=== PATIENT | female | born 1945 | race Caucasian/White ===

== ENCOUNTER → 2016-08-28 | Outpatient (CLI) | payer OTHER ==
[~2016-08-28] MED LIST: HYDR25TA4 PO; METO50TA7 PO; NAPR1TAB9 PO; OXYC1TAB3 PO; POTA20TA16 PO; PRED20TA PO; PRVC/20 PO
== END | disposition home or self-care (01) ==
LOC: C.CPL 15:11
PROVIDERS: ATTEND Orthopaedic Surgery Sports Medicine
DX: Z01.810 Encounter for preprocedural cardiovascular examination (principal)

== ENCOUNTER → 2016-09-20 | Outpatient (CLI) | payer OTHER ==
--- NOTE | 2016-09-20 15:17 | DIAGNOSTIC IMAGING REPORT ---
TWO VIEW CHEST CLINICAL HISTORY: Hemoptysis. FINDINGS: PA and lateral chest radiographs are compared to study dated 05/15/2014. Correlation is made with chest CT dated 12/08/2008. The examination is degraded by large body habitus and apical lordotic positioning on the frontal view The cardiomediastinal silhouette is unremarkable. There is mild atherosclerotic calcification of the thoracic aorta. No airspace consolidation or pleural effusion is seen. There is no pneumothorax. The skeletal structures are osteopenic. Degenerative change is noted in the thoracic spine. IMPRESSION: No acute cardiopulmonary abnormality. Electronically signed by: Saroj Arteaga M.D. 09/20/2016 3:16 PM Dictated Date/Time: 09/20/2016 3:14 PM
== END | disposition home or self-care (01) ==
LOC: C.RAD1850 15:01
PROVIDERS: ATTEND Internal Medicine
DX: R04.2 Hemoptysis (principal)

== ENCOUNTER → 2017-01-02 | Outpatient (CLI) | payer OTHER ==
[~2017-01-02] MED LIST changes: -OXYC1TAB3 PO
[2017-01-02 12:14] LABS: BASO % 0.8 %; BASO ABS # 0.04 K/uL (0-0.2); COMPLETE YES; EOS % 7.2 %; IG% 0.2 %; LYMPH % 33.3 %; LYMPH ABS # 1.58 K/uL (1.2-3.4); MEAN CELL VOLUME 85.3 fL (80-100); MEAN CORPUSCULAR HEMOGLOBIN 27.9 pg (25-34); MEAN CORPUSCULAR HGB CONC 32.8 g/dl (32-36); MONO % 8.8 %; NEUT % 49.7 %; PLATELET COUNT 255 K/uL (130-400); RED BLOOD COUNT 4.69 M/uL (4.2-5.4); WHITE BLOOD COUNT 4.75 K/uL (4.8-10.8)
[2017-01-02 12:19] LABS: URINE APPEARANCE CLEAR (CLEAR); URINE BILIRUBIN NEG (NEG); URINE COLOR YELLOW; URINE NITRITE NEG (NEG); URINE SPECIFIC GRAVITY 1.012 (1.000-1.030); UROBILINOGEN NEG (NEG); ZZUR CULT IF INDIC CLEAN CATCH NO
[2017-01-02 12:20] LABS: MANUAL MICROSCOPIC REQUIRED? NO; REVIEW REQ? NO
[2017-01-02 12:30] LABS: ALT/SGPT 18 U/L (12-78); AST/SGOT 12 U/L (15-37); BLOOD UREA NITROGEN 16 mg/dl (7-18); BUN/CREATININE RATIO 16.6 (10-20); CARBON DIOXIDE 29 mmol/L (21-32); CHLORIDE 106 mmol/L (98-107); CHOLESTEROL 151 mg/dl (0-200); CREATININE 0.96 mg/dl (0.60-1.20); GLUCOSE 95 mg/dl (70-99); POTASSIUM 3.5 mmol/L (3.5-5.1); SODIUM 144 mmol/L (136-145); TRIGLYCERIDES 164 mg/dl (0-150); VERY LOW DENSITY LIPOPROT CALC 33 mg/dl
[2017-01-02 12:38] LABS: ALB/GLOB RATIO 0.9 (0.9-2); ALKALINE PHOSPHATASE 81 U/L (45-117); CHOLESTEROL/HDL RATIO 2.8; HDL CHOLESTEROL 54 mg/dl; LDL CHOLESTEROL CALCULATED 64 mg/dl; THYROID STIMULATING HORMONE 0.947 uIu/ml (0.300-4.500)
== END | disposition home or self-care (01) ==
LOC: C.LABBFT 08:29
PROVIDERS: ATTEND Physician Assistant Medical
DX: E87.6 Hypokalemia (principal); E55.9 Vitamin D deficiency, unspecified; I10 Essential (primary) hypertension; E78.00 Pure hypercholesterolemia, unspecified

== ENCOUNTER 2017-04-03 07:48 | Emergency (ER) | payer OTHER ==
[~2017-04-03] VITALS: Ht 149.9 cm; Wt 88.2 kg
[~2017-04-03 07:48] MED LIST changes: -POTA20TA16 PO; -PRED20TA PO
[2017-04-03 07:50] VITALS: TEMP 36.3; Ht 149.9 cm; Wt 88.2 kg
[2017-04-03] MEDS ORDERED: POTA20TA16 PO ×2 (08:25→08:27)
--- NOTE | 2017-04-03 08:27 | EMERGENCY ROOM VISIT NOTE ---
History Report prepared by Adonay: Carla Coleman Under the Supervision of: Dr. Dom Augustine M.D. First contact with patient: 08:10 Chief Complaint: ALLERGIC REACTION Stated Complaint: EXCESSIVE SWELLING TO LIP History of Present Illness The patient is a 71 year old female who presents to the Emergency Room with complaints of persistent swelling her upper lip that began this morning. The patient states that she went to bed feeling fine last evening. She states that when she woke this morning she noticed upper lip swelling, but denies any tongue or throat swelling. The patient denies any change in medication, soaps, detergents, clothes, or food intake. She states that she did not take any of her medications this morning. The patient states that the last medication she took was her cholesterol medication last evening. She states that yesterday she had laser surgery on her right eye. The patient states that she had drops placed in her eye, but is unsure what the drops were. She denies any shortness of breath. Source of History: patient Onset: this morning Position: lip (upper) Quality: other (swelling) Timing: other (persistent) Review of Systems All systems have been listed, reviewed, and are negative other than those previously mentioned. Please see Additional Medical History Sheet. Past Medical & Surgical Medical Problems: (1) Bronchitis Nos (2) Hypertension (3) Painful Respiration (4) Pneumonia, Organism Nos Surgical Problems: (1) History of knee surgery Family History Diabetes mellitus FH: cancer FH: heart disease Hypertension Kidney disease Kidney stones Lung disease Social History Smoking Status: Never Smoker Alcohol Use: none Drug Use: none Marital Status: other Housing Status: lives alone Occupation Status: unemployed Current/Historical Medications Scheduled Hydrochlorothiazide (Hctz), 25 MG PO DAILY Metoprolol Succ (Toprol Xl) (Toprol-Xl), 50 MG PO QAM Potassium Ext Rel (Klor-Con), 10 MEQ PO DAILY Potassium Ext Rel (Klor-Con), 20 MEQ PO DAILY Pravastatin Sod (Pravastatin Sodium), 20 MG PO HS Prednisone (Prednisone), 20 MG PO BID Allergies Coded Allergies: Moxifloxacin (Verified Adverse Reaction, Intermediate, MENTAL CHANGES, ) Physical Exam Vital Signs Date Time Temp Pulse Resp B/P (MAP) Pulse Ox O2 Delivery O2 Flow Rate FiO2 04/03/17 12:53 66 17 135/80 94 04/03/17 10:22 68 19 169/72 94 Room Air 04/03/17 09:09 71 18 155/98 92 Room Air 04/03/17 08:19 67 04/03/17 07:50 36.3 72 18 177/115 92 Physical Exam GENERAL: Patient awake, alert, oriented x 3. Patient follows commands. Patient does not appear toxic. Patient is adequately hydrated and well- nourished. SKIN: No erythema, pallor, cyanosis or rash HEENT: Normal head, pupils equal, reactive to light and accommodation. Ears normal. Upper lip is markedly swollen, consistent with angioedema, uvula is minimally swollen, tongue is not swollen, no signs of erythema or pus in oropharynx. Neck: Without adenopathy, no neck vein distention. No meningeal findings. LUNGS: Clear to auscultation. No wheezes, no rales, no rhonchi. HEART: No murmurs. No gallops. No rubs ABDOMEN: Obese, soft, nontender. EXTREMITIES: No signs of trauma or infection. NEUROLOGIC: Cranial nerves II-XII within normal limits. No gross motor sensory function deficits. Medical Decision & Procedures Laboratory Results Test 04/03/17 08:07 Erythrocyte Sedimentation Rate 20 mm/hr (0-21) C-Reactive Protein 1.71 mg/dl (0-0.29) Laboratory results as stated above per my review. Medications Administered Medications (Trade) Dose Ordered Sig/Kirk Route Start Time Stop Time Status Last Admin Dose Admin Diphenhydramine HCl (Benadryl Cap) 50 mg NOW ONCE PO 04/03/17 09:00 04/03/17 09:01 DC 04/03/17 09:09 50 MG Prednisone (PredniSONE TAB) 40 mg NOW STAT PO 04/03/17 08:55 04/03/17 08:57 DC 04/03/17 09:09 40 MG ED Course 0811: Past medical records reviewed. The patient was evaluated in room A10. A complete history and physical examination was performed. 0855: Ordered Prednisone 40 mg PO. 0900: Ordered Benadryl Cap 50 mg PO. 1012: I reevaluated the patient and she is slightly better. She has a small polyp on the inside her buccal mucosa which is old. She still has some slight swelling of her uvula and swelling of her upper lip. 1215: I reevaluated the patient and her swelling has improved. I discussed all the exam findings with her and I discussed the treatment plan. She verbalized complete understanding and agreement. She is ready to go home. Medical Decision Nurses notes reviewed. Medical history sheet reviewed. Differential diagnosis includes but is not limited to: Angioedema, medication reaction, unknown allergen. The patient is here with angioedema of unknown cause. She does not appear to have infection. Sedimentation rate is not elevated. CRP is slightly elevated. C4 complement is pending. The patient does not likely have hereditary angioedema. The patient is not on an Romel inhibitor. There is a rare instance of angioedema from Pravachol. I do not intend on changing her medications at this time but I did place her on Benadryl and prednisone. The patient should follow-up with her family physician within the next 7 days. Medication Reconcilliation Current Medication List: was personally reviewed by me Blood Pressure Screening Patient's blood pressure: Elevated blood pressure Blood pressure disposition: Referred to PCP Impression Primary Impression: Angioedema Scribe Attestation The scribe's documentation has been prepared under my direction and personally reviewed by me in its entirety. I confirm that the note above accurately reflects all work, treatment, procedures, and medical decision making performed by me. Departure Information Dispostion Home / Self-Care Prescriptions Prednisone (Prednisone) 20 Mg Tab 20 MG PO BID for 5 Days, #9 TAB Prov: Dom Augustine M.D. 04/03/17 Referrals Domenic Nogueira M.D. (PCP) Forms HOME CARE DOCUMENTATION FORM, IMPORTANT VISIT INFORMATION Patient Instructions ED Angioedema, My [facility] Additional Instructions 25-50 mg of Benadryl every 6 hours as needed for swelling of your face. You may stop Benadryl if the swelling resolves. Prednisone 20 mg twice a day for 5 days. Continue this medication until the prescription has been completed. Follow-up with your family physician within the next 7 days. Return here sooner if you develop any shortness of breath or increased swelling.
[2017-04-03] MEDS ORDERED: PRED20TA PO (12:24)
[2017-04-03 12:53] VITALS: BP 135/80; PULSE 66; O2SAT 94
== END 2017-04-03 12:54 | disposition home or self-care (01) ==
LOC: C.EDB 07:50 → C.EDA 12:54
DX: T78.3XXA Angioneurotic edema, initial encounter (principal); X58.XXXA Exposure to other specified factors, initial encounter; I10 Essential (primary) hypertension; Z79.899 Other long term (current) drug therapy; Z98.890 Other specified postprocedural states; Z83.3 Family history of diabetes mellitus; Z80.9 Family history of malignant neoplasm, unspecified; Z82.49 Family history of ischemic heart disease and other diseases of the circulatory system; Z84.1 Family history of disorders of kidney and ureter

== ENCOUNTER → 2017-04-09 | Outpatient (CLI) | payer OTHER ==
[~2017-04-09] MED LIST changes: -NAPR1TAB9 PO; +POTA20TA16 PO; +PRED20TA PO
--- NOTE | 2017-04-09 13:50 | MAMMOGRAPHY REPORT ---
BILATERAL DIGITAL SCREENING MAMMOGRAM WITH CAD: 04/09/2017 CLINICAL HISTORY: Routine screening. TECHNIQUE: Current study was also evaluated with a Computer Aided Detection (CAD) system. Bilateral CC and MLO views were obtained. COMPARISON: Comparison is made to exam dated: 04/03/2016 mammogram - [facility]. BREAST COMPOSITION: There are scattered areas of fibroglandular density in both breasts. FINDINGS: No suspicious masses, calcifications, or areas of architectural distortion are noted in ei ther breast. There has been no significant interval change compared to prior exams. Bilateral benign appearing calcifications are not significantly changed. IMPRESSION: ACR BI-RADS CATEGORY 2: BENIGN There is no mammographic evidence of malignancy. A 1 year screening mammogram is recommended. The pa tient will receive written notification of the results. Approximately 10% of breast cancers are not detected with mammography. A negative mammographic report should not delay biopsy if a clinically suggestive mass is present. Renetta Guzman M.D. ah/:04/09/2017 11:22:31 Director Internal Communications: Ruth Ann JAIMES(Daniela)(M), [facility] letter sent: Normal 1/2 BI-RADS Code: ACR BI-RADS Category 2: Benign
== END | disposition home or self-care (01) ==
LOC: C.MAMM 10:41
PROVIDERS: ATTEND Internal Medicine
DX: Z12.31 Encounter for screening mammogram for malignant neoplasm of breast (principal)

== ENCOUNTER → 2017-04-14 | Outpatient (CLI) | payer OTHER ==
[~2017-04-14] MED LIST changes: -PRED20TA PO
[2017-04-14 12:43] LABS: COMPLETE YES; EOS % 0.1 %; HEMATOCRIT 41.3 % (37-47); IG% 0.5 %; LYMPH % 15.6 %; LYMPH ABS # 1.31 K/uL (1.2-3.4); MEAN CELL VOLUME 87.7 fL (80-100); MEAN CORPUSCULAR HEMOGLOBIN 28.2 pg (25-34); MEAN CORPUSCULAR HGB CONC 32.2 g/dl (32-36); MEAN PLATELET VOLUME 11.1 fL (7.4-10.4); MONO % 5.6 %; NEUT % 78.2 %; PLATELET COUNT 291 K/uL (130-400); RED BLOOD COUNT 4.71 M/uL (4.2-5.4); WHITE BLOOD COUNT 8.38 K/uL (4.8-10.8)
[2017-04-14 13:06] LABS: ALT/SGPT 20 U/L (12-78); BLOOD UREA NITROGEN 20 mg/dl (7-18); BUN/CREATININE RATIO 21.8 (10-20); CALCIUM 9.2 mg/dl (8.5-10.1); CARBON DIOXIDE 27 mmol/L (21-32); CHLORIDE 103 mmol/L (98-107); CREATININE 0.92 mg/dl (0.60-1.20); GLUCOSE 161 mg/dl (70-99); POTASSIUM 3.6 mmol/L (3.5-5.1); SODIUM 138 mmol/L (136-145)
[2017-04-14 13:17] LABS: ALB/GLOB RATIO 0.8 (0.9-2); ALKALINE PHOSPHATASE 66 U/L (45-117); AST/SGOT 12 U/L (15-37); THYROID STIMULATING HORMONE 0.209 uIu/ml (0.300-4.500)
[2017-04-14 14:16] LABS: LYME DISEASE AB IGG NEG (NEG)
[2017-04-14 14:19] LABS: LYME DISEASE AB IGM NEG (NEG)
== END | disposition home or self-care (01) ==
LOC: C.LABBFT 09:11
PROVIDERS: ATTEND Physician Assistant Medical
DX: A69.20 Lyme disease, unspecified (principal)

== ENCOUNTER → 2017-04-21 | Outpatient (CLI) | payer OTHER ==
[2017-04-21 12:38] LABS: THYROID STIMULATING HORMONE 0.817 uIu/ml (0.300-4.500)
== END | disposition home or self-care (01) ==
LOC: C.LABBFT 08:32
PROVIDERS: ATTEND Physician Assistant Medical
DX: R94.6 Abnormal results of thyroid function studies (principal)

== ENCOUNTER → 2017-08-21 | Outpatient (CLI) | payer OTHER ==
[2017-08-21 12:36] LABS: HEMOGLOBIN A1C 5.5 % (4.5-5.6)
[2017-08-21 12:51] LABS: BASO ABS # 0.05 K/uL (0-0.2); EOS % 5.3 %; EOS ABS # 0.27 K/uL (0-0.5); HEMATOCRIT 40.1 % (37-47); HEMOGLOBIN 13.3 g/dL (12.0-16.0); LYMPH % 36.1 %; LYMPH ABS # 1.84 K/uL (1.2-3.4); MEAN CELL VOLUME 87.4 fL (80-100); MEAN CORPUSCULAR HGB CONC 33.2 g/dl (32-36); MEAN PLATELET VOLUME 10.9 fL (7.4-10.4); MONO % 8.8 %; MONO ABS # 0.45 K/uL (0.11-0.59); NEUT % 48.8 %; NEUT ABS # 2.48 K/uL (1.4-6.5); PLATELET COUNT 280 K/uL (130-400); RED CELL DISTRIBUTION WIDTH CV 13.7 % (11.5-14.5); RED CELL DISTRIBUTION WIDTH SD 43.3 fL (36.4-46.3); WHITE BLOOD COUNT 5.09 K/uL (4.8-10.8)
[2017-08-21 14:07] LABS: ALBUMIN 3.3 gm/dl (3.4-5.0); ALT/SGPT 21 U/L (12-78); AST/SGOT 18 U/L (15-37); BLOOD UREA NITROGEN 14 mg/dl (7-18); CALCIUM 9.2 mg/dl (8.5-10.1); CARBON DIOXIDE 30 mmol/L (21-32); CREATININE 0.99 mg/dl (0.60-1.20); GLUCOSE 96 mg/dl (70-99); POTASSIUM 3.5 mmol/L (3.5-5.1); SODIUM 139 mmol/L (136-145)
[2017-08-21 14:10] LABS: ALKALINE PHOSPHATASE 76 U/L (45-117); CHOLESTEROL 210 mg/dl (0-200); LDL CHOLESTEROL CALCULATED 120 mg/dl; TOTAL PROTEIN 7.3 gm/dl (6.4-8.2)
== END | disposition home or self-care (01) ==
LOC: C.LABBFT 08:22
PROVIDERS: ATTEND Internal Medicine
DX: E55.9 Vitamin D deficiency, unspecified (principal); R73.9 Hyperglycemia, unspecified

== ENCOUNTER → 2017-11-18 | Outpatient (CLI) | payer OTHER ==
[~2017-11-18] MED LIST changes: -METO50TA7 PO; +METO50TA8 PO; +POTA-639 PO; -POTA20TA16 PO
== END | disposition home or self-care (01) ==
LOC: C.MAMM 09:17
PROVIDERS: ATTEND Internal Medicine
DX: E55.9 Vitamin D deficiency, unspecified (principal); Z78.0 Asymptomatic menopausal state

== ENCOUNTER → 2017-11-24 | Outpatient (CLI) | payer OTHER ==
[2017-11-24 13:02] LABS: BLOOD UREA NITROGEN 17 mg/dl (7-18); CALCIUM 9.4 mg/dl (8.5-10.1); CARBON DIOXIDE 30 mmol/L (21-32); CREATININE 1.07 mg/dl (0.60-1.20); GLUCOSE 148 mg/dl (70-99); POTASSIUM 3.5 mmol/L (3.5-5.1); SODIUM 136 mmol/L (136-145)
== END | disposition home or self-care (01) ==
LOC: C.LABBFT 09:10
PROVIDERS: ATTEND Internal Medicine
DX: I10 Essential (primary) hypertension (principal); E55.9 Vitamin D deficiency, unspecified

== ENCOUNTER → 2017-11-28 | Outpatient (CLI) | payer OTHER ==
[2017-11-28 12:19] LABS: HEMOGLOBIN A1C 5.6 % (4.5-5.6)
== END | disposition home or self-care (01) ==
LOC: C.LABBFT 08:38
PROVIDERS: ATTEND Internal Medicine
DX: R73.09 Other abnormal glucose (principal)

== ENCOUNTER 2019-10-07 18:43 | Inpatient (IN) ==
[2019-10-07 20:09] LABS: Partial Thromboplastin Time 25.9 Seconds (21.0-31.0); Prothrombin Time 10.6 Seconds (9.0-12.0)
[2019-10-07 20:10] LABS: Basophils # (auto) 0.02 K/uL (0-0.2); Basophils % (auto) 0.4 %; Eosinophils # (auto) 0.25 K/uL (0-0.5); Eosinophils % (auto) 4.7 %; Hematocrit (blood only) 39.7 % (37-47); Hemoglobin 13.3 g/dL (12.0-16.0); Lymphocytes # (auto) 1.38 K/uL (1.2-3.4); Lymphocytes % (auto) 25.7 %; Mean Corpuscular Hemoglobin 29.6 pg (25-34); Mean Corpuscular Hgb Conc 33.5 g/dL (32-36); Mean Corpuscular Volume 88.4 fL (80-100); Mean Platelet Volume 10.7 fL (7.4-10.4); Monocytes # (auto) 0.61 K/uL (0.11-0.59); Monocytes % (auto) 11.4 %; Neutrophils # (auto) 3.11 K/uL (1.4-6.5); Neutrophils % (auto) 57.8 %; Platelet Count 263 K/uL (130-400); RDW Coefficient of Variation 14.3 % (11.5-14.5); RDW Standard Deviation 46.3 fL (36.4-46.3); Red Blood Count 4.49 M/uL (4.2-5.4); White Blood Count 5.37 K/uL (4.8-10.8)
[2019-10-07 20:12] LABS: Alanine Aminotransferase 19 U/L (12-78); Albumin Level 3.3 gm/dl (3.4-5.0); Aspartate Aminotransferase 14 U/L (15-37); BUN Creatinine Ratio 20.8 (10-20); Blood Urea Nitrogen 20 mg/dl (7-18); Calcium 9.2 mg/dl (8.5-10.1); Carbon Dioxide 30 mmol/L (21-32); Chloride 104 mmol/L (98-107); Creatinine Clr Calc Pharmacy 48.4 ml/min; Est GFR (African American) 64.9; Glucose 120 mg/dl (70-99); Magnesium 1.9 mg/dl (1.8-2.4); Potassium 3.3 mmol/L (3.5-5.1); Sodium 139 mmol/L (136-145)
[2019-10-07 20:17] LABS: Albumin Globulin Ratio 0.8 (0.9-2); Alkaline Phosphatase 75 U/L (45-117); Bilirubin,Total 0.5 mg/dl (0.2-1); Globulin 4.2 gm/dl (2.5-4.0); Total Protein 7.5 gm/dl (6.4-8.2); Troponin I < 0.015 ng/ml (0-0.045)
[2019-10-07] MEDS ORDERED: OPTIRAY 320 125ml IV PRN (20:18)
--- NOTE | 2019-10-07 20:22 | CT Scan Report ---
CT head/brain wo con CLINICAL HISTORY: 74 years-old Female with Stroke evaluation . Acute headache with light sensitivity TECHNIQUE: Multiple axial CT images of the head were obtained without contrast. A dose lowering tech nique was utilized adhering to the principles of ALARA. CT DOSE: 537.48 mGy.cm COMPARISON: None. FINDINGS: No acute intracranial hemorrhage, midline shift, intracranial mass, hydrocephalus, territorial ischem ia or abnormal extra-axial collection. Minimal age-related involutional changes. The calvarium is intact. Prior bilateral lens replacement. The paranasal sinuses, mastoid air cells, and middle ear cavities are clear. IMPRESSION: No acute intracranial abnormality. ACT 112: Negative or not required by law. The above report was generated using voice recognition software. It may contain grammatical, syntax o r spelling errors. Results electronically sent 10/07/2019 8:21 PM to: Baldemar Brooks MD Electronically signed by: Mina Vazquez M.D. 10/07/2019 8:21 PM
[2019-10-07 20:33] LABS: Appearance Urine Cloudy (Clear); Bacteria Urine Automated Negative (Negative); Bilirubin Urine Negative (Negative); Blood Urine Negative (Negative); Cast Urine Automated 0 /lpf (0-5); Color Urine Yellow; Epithelial Cell Urine Auto 20-30 /lpf (0-5); Glucose Urine UA Negative (Negative); Ketones Urine Negative (Negative); Leukocyte Esterase Urine Trace (Negative); Nitrite Urine Negative (Negative); Protein Urine Negative (Negative); RBC Urine Automated 0-4 /hpf (0-4); Specific Gravity Urine 1.007 (1.000-1.030); Urobilinogen Urine Negative (Negative)
--- NOTE | 2019-10-07 20:43 | CT Scan Report ---
CT angio neck with con, CT angio head w con CLINICAL HISTORY: 74 years-old Female with slurred speech, dysphagia. Acute strokelike symptoms wi th slurred speech COMPARISON STUDY: Head CT of same day TECHNIQUE: Following the IV administration of 119 mL of Optiray 320, CT angiogram of the head and nec k was performed from the aortic arch to the skull apex. Images are reviewed in the axial, sagittal, a nd coronal planes. 3-D MIPS images are created and assessed. IV contrast was administered without com plication. All measurements were calculated based on NASCET criteria. A dose lowering technique was utilized adhering to the principles of ALARA. CT DOSE: 523.46 mGy.cm FINDINGS: The imaged opacified pulmonary arterial tree is unremarkable. Moderate mixed plaque of the thoracic a ortic arch without aneurysm identified. Mild less than 50% luminal narrowing at the origin of the lef t subclavian artery. Unremarkable right subclavian artery. The bilateral common carotid arteries are patent. Moderate mixed plaque of the bilateral carotid bulbs results in less than 50% luminal narrowi ng bilaterally. There is approximately 50% luminal narrowing involving the proximal left external car otid artery. There is a 3 mm ovoid structure suggestive of aneurysmal dilation involving a small bran ch of the left external carotid adjacent to the bulb on image 203 of series 2. Medial course of the b ilateral internal carotid arteries which are patent and otherwise unremarkable. The bilateral middle cerebral arteries are patent demonstrating multifocal areas of mild luminal narr owing. Anterior vertebral arteries are patent and unremarkable. Codominant vertebral arteries. The le ft vertebral artery originates from the aortic arch. Diminutive basilar artery is patent. origi n of the left posterior cerebral artery. The bilateral posterior cerebral arteries appear patent. Cer ebral venous sinuses are also patent. There is no aneurysm, dissection, high-grade stenosis or proxim al branch occlusion identified. Mosaic attenuation of the lung apices suggests air-trapping. No pneumothorax. No abnormal intracrania l enhancement. Partially imaged mildly enlarged prevascular/AP window lymph nodes with prominent pret reyna lymph nodes. Mild enlargement of the adenoid tonsils. Degenerative changes of the spine. IMPRESSION: 1. 50% luminal narrowing involves the origin of the left external carotid artery. 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 2. Moderate mixed plaque of the bilateral carotid bulbs results in less than 50% luminal narrowing of the bilateral internal carotid arteries. 3. No dissection, high-grade stenosis or proximal branch occlusion. 4. Partially imaged mild adenopathy of the upper mediastinum, nonspecific. ACT 112: Negative or not required by law. The above report was generated using voice recognition software. It may contain grammatical, syntax o r spelling errors. Results electronically sent 10/07/2019 8:42 PM to: Baldemar Brooks MD Electronically signed by: Mina Vazquez M.D. 10/07/2019 8:42 PM
[2019-10-07] MEDS ORDERED: ASPIRIN CHEW 324 MG PO STA (21:02)
--- NOTE | 2019-10-07 21:46 | CT Scan Report ---
CT chest wo con CT DOSE: 1127.65 mGy.cm CLINICAL HISTORY: 74 years-old Female with slurred speech, hospitalist requested. Acute shortness of breath TECHNIQUE: Multiaxial CT images of the chest were performed without contrast. A dose lowering techni que was utilized adhering to the principles of ALARA. COMPARISON: Chest CT 12/08/2008 FINDINGS: Unremarkable thyroid. There are a few prominent paratracheal, AP window and subcarinal lymp h nodes measuring up to 9 mm, likely on a physiologic basis. Heart is upper limits of normal in size. Mild aortic annular calcifications. Calcified plaque of the thoracic aorta. No pneumothorax or pleur al effusion. Mosaic attenuation of the bilateral lungs is noted with intermixed groundglass densities suggestive of atelectasis. 4 mm nodular density focus abuts the superior aspect of the right major f issure on image 86 of series 4, unchanged suggestive of a benign lymph node. No overt pulmonary edema or airspace consolidation typical for pneumonia. 4 mm groundglass opacity of the right middle lobe. 3 mm subpleural nodule of the lateral segment right middle lobe is unchanged and likely benign. 4 mm subpleural nodular opacity of the apical posterior segment left upper lobe on image 59 series 4 is un changed and also likely benign. The central airways appear patent. No acute process of the imaged upper abdomen. Soft tissues are unremarkable. Bones appear intact. Deg enerative changes of the shoulders and spine. IMPRESSION: 1. No pleural effusion or airspace consolidation typical for pneumonia. 2. Multilobar bilateral distribution of mosaic attenuation with groundglass densities suggests air-tr apping with atelectasis. 3. Mildly prominent mediastinal lymph nodes, likely reactive. ACT 112: Negative or not required by law. Results electronically sent 10/07/2019 9:45 PM to: Baldemar Brooks MD Electronically signed by: Mina Vazquez M.D. 10/07/2019 9:45 PM
--- NOTE | 2019-10-07 22:11 | Emergency Department Note ---
Entered by Theresa Coburn acting as a scribe for History of Present Illness General Chief complaint: TIA Symptoms Stated complaint: SPEECH ISN'T RIGHT, PAIN FROM NECK TO HEAD Time Seen by Provider: 10/07/19 18:52 Source: patient History of Present Illness Location: mouth Pain Consistency: + constant Maximum Pain Intensity: 5 Quality: + other (TIA symptoms) Exacerbated By: + movement (turning to the right (neck to head pain)) Associated symptoms: + other (Positive inability to chew on left side (constant), difficulty swallowing, pain from neck to head, slurred speech. Negative vision changes, hearing changes, numbness or weakness in her extremities, recent travel. ) The patient is a 74 year old white female w/ PMHx of Afib, hypercholesterolemia, sciatica, and HTN who presents to the ED w/ CC of TIA symptoms beginning yesterday. She reports when she chews her food, she cannot chew on her left side. She states this is constant. The patient reports she has pain going from her neck to her head which is worsened when she turns to the right. She states her speech is slurred and she had difficulty swallowing. Pt denies any vision changes, hearing changes, numbness or weakness in her extremities, recent travel. Home Medications Home Medications Medication Instructions Recorded Confirmed Type Eliquis 5 mg PO BID 11/25/18 10/07/19 History metoprolol succinate 50 mg 50 mg PO QAM #30 tab 03/16/19 10/07/19 Rx tablet,extended release 24 hr pravastatin 20 mg tablet 20 mg PO HS #90 tab 04/13/19 10/07/19 Rx cholecalciferol (vitamin D3) 25 2,000 units PO QDL cap 04/20/19 10/07/19 History mcg (1,000 unit) capsule prednisone 20 mg tablet 20 mg PO DAILY PRN #20 tab 05/19/19 10/07/19 Rx potassium chloride 10 mEq 30 meq PO QAM #90 tab 07/08/19 10/07/19 Rx tablet,extended release(part/cryst) hydrochlorothiazide 25 mg tablet 25 mg PO DAILY #90 tab 09/15/19 10/07/19 Rx cetirizine 5 mg PO DAILY 10/07/19 10/07/19 History Allergies Allergy/AdvReac Type Severity Reaction Status Date / Time moxifloxacin AdvReac Intermediate Confusion Verified 10/07/19 20:38 irbesartan [From Avapro] AdvReac Unknown Verified 10/07/19 20:37 Past Med/Surg History Medical History Atrial fibrillation Hyperlipidemia Hypertension Kidney stones Morbid obesity Spinal stenosis Surgical History History of arthroscopy RIGHT KNEE History of cataract surgery BILATERAL History of colonoscopy Family History Brother Family hx of colon cancer Mother Family history of diabetes mellitus Social History Preferred Language: Trinidadian Communication Ability: Effective 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 and A total of 10 systems reviewed and were otherwise negative Physical Exam Vital Signs Vital Signs - 24 hr 10/07/19 18:48 10/07/19 21:16 Temperature 36.5 C Temperature Source Oral Pulse Rate 82 Pulse Rate [Left Finger] 67 Respiratory Rate 20 18 Blood Pressure 168/91 H Blood Pressure [Right Arm] 197/93 H Blood Pressure Mean 116 Blood Pressure Mean [Right Arm] 127 Blood Pressure Position Sitting Pulse Oximetry 95 94 Oxygen Delivery Method Room Air Sepsis Recent Fever Within 48 Hours No Sepsis New/Unexplained Change in Mental Status No Sepsis Action Taken by Nursing No Action Required GENERAL: Well appearing, well nourished, NAD, non-toxic. EYE EXAM: Normal conjunctiva. PERRL, no anisocoria and EOM's grossly intact w/o pain. OROPHARYNX: Moist mucous membranes. Edentulous. NECK: Supple, no nuchal rigidity, no adenopathy, non-tender. No signs of meningismus. LUNGS: Clear to auscultation. Normal chest wall mechanics. HEART: Irregularly irregular, no MRG. ABDOMEN: Abdomen soft, non-tender, normo-active bowel sounds, no masses, no rebound or guarding. BACK: No CVA TTP. SKIN: No rashes and no bruising. UPPER EXTREMITIES: Upper extremities are grossly normal. LOWER EXTREMITIES: No pitting edema. No calf pain. NEURO EXAM: A&O x3, cranial nerves II-XII grossly intact, with exception of slurred speech. Dysphagia. Normal speech, 5/5 strength throughout, no sensory deficits, good finger to nose, no pronator drift, moves all 4 extremities on command w/o issue. Course Course 185: Past medical records reviewed. The patient was evaluated in room C3. A complete history and physical exam was performed. 2149: Discussed the patient's case with Dr. Roe, [facility] Hospitalist. The patient will be evaluated for further management. CT chest without contrast was ordered per the hospitalist. Administered Medications Ioversol (Optiray 320 125ml) 119 ml IV ONCE PRN PRN Reason: Interaction Checking Stop: 10/11/19 20:17 Last Admin: 10/07/19 20:20 Dose: 119 ml Documented by: [id number] Discontinued Medications Aspirin (Aspirin) 324 mg PO NOW STA Stop: 10/07/19 21:03 Last Admin: 10/07/19 21: Dose: 324 mg Documented by: [id number] Medical Decision Making Differential Diagnosis Differential diagnosis: Etiologies such as metabolic, infection, hypo/hyperglycemia, electrolyte abnormalities, cardiac sources, intracerebral event, toxicologic, neurologic, as well as others were entertained. Medical Records Attestation: I reviewed the patient's medical records. Home Medications Current Medication List: was personally reviewed by me Laboratory Data Attestation: I reviewed the patient's lab results. Result diagrams: 10/07/19 19:45 10/07/19 19:45 Lab Results 10/07/19 10/07/19 10/07/19 Range/Units 19:28 19:45 19:45 WBC 5.37 (4.8-10.8) K/uL RBC 4.49 (4.2-5.4) M/uL Hgb 13.3 (12.0-16.0) g/dL Hct 39.7 (37-47) % MCV 88.4 (80-100) fL MCH 29.6 (25-34) pg MCHC 33.5 (32-36) g/dL RDW Std Deviation 46.3 (36.4-46.3) fL RDW Coeff of Juanjo 14.3 (11.5-14.5) % Plt Count 263 (130-400) K/uL MPV 10.7 H (7.4-10.4) fL Immature Gran % (Auto) 0.0 % Neut % (Auto) 57.8 % Lymph % (Auto) 25.7 % Hutch[place] % (Auto) 11.4 % Eos % (Auto) 4.7 % Baso % (Auto) 0.4 % Immature Gran # (Auto) 0.00 (0.00-0.02) K/uL Neut # (Auto) 3.11 (1.4-6.5) K/uL Lymph # (Auto) 1.38 (1.2-3.4) K/uL Hutchinson # (Auto) 0.61 H (0.11-0.59) K/uL Eos # (Auto) 0.25 (0-0.5) K/uL Baso # (Auto) 0.02 (0-0.2) K/uL PT 10.6 (9.0-12.0) Seconds INR 1.0 (0.9-1.1) APTT 25.9 (21.0-31.0) Seconds PTT Ratio 1.0 Sodium (136-145) mmol/L Potassium (3.5-5.1) mmol/L Chloride (98-107) mmol/L Carbon Dioxide (21-32) mmol/L Anion Gap (3-11) BUN (7-18) mg/dl Creatinine (0.6-1.2) mg/dl Est Cr Clr Drug Dosing ml/min Est GFR ( Amer) Est GFR (Non-Af Amer) BUN/Creatinine Ratio (10-20) Glucose (70-99) mg/dl POC Glucose 120 H (70-99) mg/dl Calcium (8.5-10.1) mg/dl Magnesium (1.8-2.4) mg/dl Total Bilirubin (0.2-1) mg/dl AST (15-37) U/L ALT (12-78) U/L Alkaline Phosphatase (45-117) U/L Troponin I (0-0.045) ng/ml Total Protein (6.4-8.2) gm/dl Albumin (3.4-5.0) gm/dl Globulin (2.5-4.0) gm/dl Albumin/Globulin Ratio (0.9-2) Urine Color Urine Appearance (Clear) Urine pH (4.5-7.5) Ur Specific [place] (1.000-1.030) Urine Protein (Negative) Urine Glucose (UA) (Negative) Urine Ketones (Negative) Urine Blood (Negative) Urine Nitrite (Negative) Urine Bilirubin (Negative) Urine Urobilinogen (Negative) Ur Leukocyte Esterase (Negative) Urine WBC (Auto) (0-5) /hpf Urine RBC (Auto) (0-4) /hpf U Hyaline Cast (Auto) (0-5) /lpf U Epithel Cells (Auto) (0-5) /lpf Urine Bacteria (Auto) (Negative) 10/07/19 10/07/19 Range/Units 19:45 20:05 WBC (4.8-10.8) K/uL RBC (4.2-5.4) M/uL Hgb (12.0-16.0) g/dL Hct (37-47) % MCV (80-100) fL MCH (25-34) pg MCHC (32-36) g/dL RDW Std Deviation (36.4-46.3) fL RDW Coeff of Juanjo (11.5-14.5) % Plt Count (130-400) K/uL MPV (7.4-10.4) fL Immature Gran % (Auto) % Neut % (Auto) % Lymph % (Auto) % Hutchinson % (Auto) % Eos % (Auto) % Baso % (Auto) % Immature Gran # (Auto) (0.00-0.02) K/uL Neut # (Auto) (1.4-6.5) K/uL Lymph # (Auto) (1.2-3.4) K/uL Hutchinson # (Auto) (0.11-0.59) K/uL Eos # (Auto) (0-0.5) K/uL Baso # (Auto) (0-0.2) K/uL PT (9.0-12.0) Seconds INR (0.9-1.1) APTT (21.0-31.0) Seconds PTT Ratio Sodium 139 (136-145) mmol/L Potassium 3.3 L (3.5-5.1) mmol/L Chloride 104 (98-107) mmol/L Carbon Dioxide 30 (21-32) mmol/L Anion Gap 5.0 (3-11) BUN 20 H (7-18) mg/dl Creatinine 0.98 (0.6-1.2) mg/dl Est Cr Clr Drug Dosing 48.4 ml/min Est GFR ( Amer) 64.9 Est GFR (Non-Af Amer) 56.0 BUN/Creatinine Ratio 20.8 H (10-20) Glucose 120 H (70-99) mg/dl POC Glucose (70-99) mg/dl Calcium 9.2 (8.5-10.1) mg/dl Magnesium 1.9 (1.8-2.4) mg/dl Total Bilirubin 0.5 (0.2-1) mg/dl AST 14 L (15-37) U/L ALT 19 (12-78) U/L Alkaline Phosphatase 75 (45-117) U/L Troponin I < 0.015 (0-0.045) ng/ml Total Protein 7.5 (6.4-8.2) gm/dl Albumin 3.3 L (3.4-5.0) gm/dl Globulin 4.2 H (2.5-4.0) gm/dl Albumin/Globulin Ratio 0.8 L (0.9-2) Urine Color Yellow Urine Appearance Cloudy A (Clear) Urine pH 6.0 (4.5-7.5) Ur Specific [place] 1.007 (1.000-1.030) Urine Protein Negative (Negative) Urine Glucose (UA) Negative (Negative) Urine Ketones Negative (Negative) Urine Blood Negative (Negative) Urine Nitrite Negative (Negative) Urine Bilirubin Negative (Negative) Urine Urobilinogen Negative (Negative) Ur Leukocyte Esterase Trace H (Negative) Urine WBC (Auto) 5-10 H (0-5) /hpf Urine RBC (Auto) 0-4 (0-4) /hpf U Hyaline Cast (Auto) 0 (0-5) /lpf U Epithel Cells (Auto) 20-30 H (0-5) /lpf Urine Bacteria (Auto) Negative (Negative) Imaging Data Radiologist's Impression: Radiology results as stated below per my review and the radiologist's interpretation: CT angio neck with con, CT angio head w con CLINICAL HISTORY: 74 years-old Female with slurred speech, dysphagia. Acute strokelike symptoms with slurred speech COMPARISON STUDY: Head CT of same day TECHNIQUE: Following the IV administration of 119 mL of Optiray 320, CT angiogram of the head and neck was performed from the aortic arch to the skull apex. Images are reviewed in the axial, sagittal, and coronal planes. 3-D MIPS images are created and assessed. IV contrast was administered without complication. All measurements were calculated based on NASCET criteria. A dose lowering technique was utilized adhering to the principles of ALARA. CT DOSE: 523.46 mGy.cm FINDINGS: The imaged opacified pulmonary arterial tree is unremarkable. Moderate mixed plaque of the thoracic aortic arch without aneurysm identified. Mild less than 50% luminal narrowing at the origin of the left subclavian artery. Unremarkable right subclavian artery. The bilateral common carotid arteries are patent. Moderate mixed plaque of the bilateral carotid bulbs results in less than 50% luminal narrowing bilaterally. There is approximately 50% luminal narrowing involving the proximal left external carotid artery. There is a 3 mm ovoid structure suggestive of aneurysmal dilation involving a small branch of the left external carotid adjacent to the bulb on image 203 of series 2. Medial course of the bilateral internal carotid arteries which are patent and otherwise unremarkable. The bilateral middle cerebral arteries are patent demonstrating multifocal areas of mild luminal narrowing. Anterior vertebral arteries are patent and unremarkable. Codominant vertebral arteries. The left vertebral artery originates from the aortic arch. Diminutive basilar artery is patent. origin of the left posterior cerebral artery. The bilateral posterior cerebral arteries appear patent. Cerebral venous sinuses are also patent. There is no aneurysm, dissection, high-grade stenosis or proximal branch occlusion identified. Mosaic attenuation of the lung apices suggests air-trapping. No pneumothorax. No abnormal intracranial enhancement. Partially imaged mildly enlarged prevascular/AP window lymph nodes with prominent pretracheal lymph nodes. Mild enlargement of the adenoid tonsils. Degenerative changes of the spine. IMPRESSION: 1. 50% luminal narrowing involves the origin of the left external carotid artery. 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 2. Moderate mixed plaque of the bilateral carotid bulbs results in less than 50% luminal narrowing of the bilateral internal carotid arteries. 3. No dissection, high-grade stenosis or proximal branch occlusion. 4. Partially imaged mild adenopathy of the upper mediastinum, nonspecific. ACT 112: Negative or not required by law. The above report was generated using voice recognition software. It may contain grammatical, syntax or spelling errors. Results electronically sent 10/07/2019 8:42 PM to: Baldemar Brooks MD Electronically signed by: Mina Vazquez M.D. 10/07/2019 8:[address] angio neck with con, CT angio head w con CLINICAL HISTORY: 74 years-old Female with slurred speech, dysphagia. Acute strokelike symptoms with slurred speech COMPARISON STUDY: Head CT of same day TECHNIQUE: Following the IV administration of 119 mL of Optiray 320, CT angiogram of the head and neck was performed from the aortic arch to the skull apex. Images are reviewed in the axial, sagittal, and coronal planes. 3-D MIPS images are created and assessed. IV contrast was administered without complication. All measurements were calculated based on NASCET criteria. A dose lowering technique was utilized adhering to the principles of ALARA. CT DOSE: 523.46 mGy.cm FINDINGS: The imaged opacified pulmonary arterial tree is unremarkable. Moderate mixed plaque of the thoracic aortic arch without aneurysm identified. Mild less than 50% luminal narrowing at the origin of the left subclavian artery. Unremarkable right subclavian artery. The bilateral common carotid arteries are patent. Mo derate mixed plaque of the bilateral carotid bulbs results in less than 50% luminal narrowing bilaterally. There is approximately 50% luminal narrowing involving the proximal left external carotid artery. There is a 3 mm ovoid structure suggestive of aneurysmal dilation involving a small branch of the left external carotid adjacent to the bulb on image 203 of series 2. Medial course of the bilateral internal carotid arteries which are patent and otherwise unremarkable. The bilateral middle cerebral arteries are patent demonstrating multifocal areas of mild luminal narrowing. Anterior vertebral arteries are patent and unremarkable. Codominant vertebral arteries. The left vertebral artery kofi ginates from the aortic arch. Diminutive basilar artery is patent. origin of the left posterior cerebral artery. The bilateral posterior cerebral arteries appear patent. Cerebral venous sinuses are also patent. There is no aneurysm, dissection, high-grade stenosis or proximal branch occlusion identified. Mosaic attenuation of the lung apices suggests air-trapping. No pneumothorax. No abnormal intracranial enhancement. Partially imaged mildly enlarged prevascular/AP window lymph nodes with prominent pretracheal lymph nodes. Mild enlargement of the adenoid tonsils. Degenerative changes of the spine. IMPRESSION: 1. 50% luminal narrowing involves the origin of the left external carotid a rtery. 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 2. Moderate mixed plaque of the bilateral carotid bulbs results in less than 50% luminal narrowing of the bilateral internal carotid arteries. 3. No dissection, high-grade stenosis or proximal branch occlusion. 4. Partially imaged mild adenopathy of the upper mediastinum, nonspecific. ACT 112: Negative or not required by law. The above report was generated using voice recognition software. It may contain grammatical, syntax or spelling errors. Results electronically sent 10/07/2019 8:42 PM to: Baldemar Brooks MD Electronically signed by: Mina Vazquez M.D. 10/07/2019 8:[address] head/brain wo con CLINICAL HISTORY: 74 years-old Female with Stroke evaluation . Acute headache with light sensitivity TECHNIQUE: Multiple axial CT images of the head were obtained without contrast. A dose lowering technique was utilized adhering to the principles of ALARA. CT DOSE: 537.48 mGy.cm COMPARISON: None. FINDINGS: No acute intracranial hemorrhage, midline shift, intracranial mass, hydrocephalus, territorial ischemia or abnormal extra-axial collection. Minimal age-related involutional changes. The calvarium is intact. Prior bilateral lens replacement. The paranasal sinuses, mastoid air cells, and middle ear cavities are clear. IMPRESSION: No acute intracranial abnormality. ACT 112: Negative or not required by law. The above report was generated using voice recognition software. It may contain grammatical, syntax or spelling errors. Results electronically sent 10/07/2019 8:21 PM to: Baldemar Brooks MD Electronically signed by: Mina Vazquez M.D. 10/07/2019 8:[address] chest wo con CT DOSE: 1127.65 mGy.cm CLINICAL HISTORY: 74 years-old Female with slurred speech, hospitalist reque sted. Acute shortness of breath TECHNIQUE: Multiaxial CT images of the chest were performed without contrast. A dose lowering technique was utilized adhering to the principles of ALARA. COMPARISON: Chest CT 12/08/2008 FINDINGS: Unremarkable thyroid. There are a few prominent paratracheal, AP win morgan and subcarinal lymph nodes measuring up to 9 mm, likely on a physiologic basis. Heart is upper limits of normal in size. Mild aortic annular calcifications. Calcified plaque of the thoracic aorta. No pneumothorax or pleural effusion. Mosaic attenuation of the bilateral lungs is noted with interm ixed groundglass densities suggestive of atelectasis. 4 mm nodular density focus abuts the superior aspect of the right major fissure on image 86 of series 4, unchanged suggestive of a benign lymph node. No overt pulmonary edema or airspace consolidation typical for pneumonia. 4 mm groundglass opacity of the right middle lobe. 3 mm subpleural nodule of the lateral segment right middle lobe is unchanged and likely benign. 4 mm subpleural nodular opacity of the apical posterior segment left upper lobe on image 59 series 4 is unchanged and also likely benign. The central airways appear patent. No acute process of the imaged upper abdomen. Soft tissues are unremarkable. Bones appear intact. Degenerative changes of the shoulders and spine. IMPRESSION: 1. No pleural effusion or airspace consolidation typical for pneumonia. 2. Multilobar bilateral distribution of mosaic attenuation with groundglass densities suggests air-trapping with atelectasis. 3. Mildly prominent mediastinal lymph nodes, likely reactive. ACT 112: Negative or not required by law. Results electronically sent 10/07/2019 9:45 PM to: Baldemar Brooks MD Electronically signed by: Mian Vazquez M.D. 10/07/2019 9:45 PM Dictated: [id number]/[id number] Transcribed: [id number]/[id number] ECG Data Attestation: I personally reviewed and interpreted this ECG as follows: Indication: + other (TIA symptoms) Rate (beats per minute): 63 Rhythm: + sinus rhythm ECG Intervals/blocks: + First degree AV block and + Normal QRS ECG [place]mler: + Normal ECG ST segments: + T-wave inversions (V2 and lead III) ECG Findings: + Other (no ST changes) Comparison ECG Date: from (12/01/18) Change: no significant change Blood Pressure Blood Pressure Findings: Elevated blood pressure MDM Narrative The patient is a 74 year old white female w/ PMHx of Afib, hypercholesterolemia, sciatica, and HTN who presents to the ED w/ CC of TIA symptoms beginning yesterday. Cardiac monitoring: An order was placed for continuous cardiac monitoring. The monitor shows a rate of 64 with sinus rhythm. Patient was seen and evaluated the bedside. The patient states that she did develop symptoms on Friday. The patient noted some slurred speech and some difficulty with swallowing. The patient does not have any prior history of my asthenia gravis. No prior history of stroke or TIA. The patient denies any alcohol or tobacco use. The patient otherwise has a nonfocal neurologic exam but does have the slurred speech. Patient is tolerating her secretions at the bedside. Patient does not have any sensory deficits good [id number]. Patient denies any recent falls or trauma. The patient blood work shows a normal white count H&H and platelet count. The patient's kidney function is unremarkable. The patient may have slight prerenal azotemia. The patient's potassium is somewhat low which may be repleted. Patient's urinalysis does not show any evidence of obvious infection. No urinary symptoms with negative bacteria and nitrites. Patient CT of the head was negative. Patient CT angios of the head and neck do's shows some narrowing of the left external carotid and a small saccular aneurysm of the small branch of the proximal left external carotid artery. No other obvious dissection high-grade stenosis or proximal branch occlusion. I did speak the on-call hospitalist who requested a CT of the chest ordered. This was ordered and completed. Patient does not have any findings typical of pneumonia most likely atelectasis and does likely have some reactive mediastinal lymph nodes. Patient did receive a full dose aspirin. Patient currently is not in A. fib. EKG does not show any acute change. Patient was admitted to the medicine service. Impression & Plan TIA (transient ischemic attack), Slurring of speech, Hypokalemia Discharge Plan Visit Data Chief Complaint: TIA Symptoms Stated Complaint: SPEECH ISN'T RIGHT, PAIN FROM NECK TO HEAD ED Provider: Baldemar Brooks Discharge Problem: TIA (transient ischemic attack), Slurring of speech, Hypokalemia Patient Disposition: Being Evaluated by Hospitalist Forms Stand Alone Forms: [facility] [employer] Prescriptions Prescriptions: No Action metoprolol succinate 50 mg tablet extended release 24 hr 50 mg PO QAM Qty: 30 RF: 11 pravastatin 20 mg tablet 20 mg PO HS Qty: 90 RF: 3 cholecalciferol (vitamin D3) [Vitamin D3] 1,000 unit capsule 2,000 units PO QDL RF: 0 potassium chloride [Klor-Con M10] 10 mEq tablet,ER particles/crystals 30 meq PO QAM Qty: 90 RF: 3 hydrochlorothiazide 25 mg tablet 25 mg PO DAILY Qty: 90 RF: 3 prednisone 20 mg tablet 20 mg PO DAILY PRN (Reason: facial swelling) Qty: 20 RF: 0 Eliquis 5 mg Tablet 5 mg PO BID RF: 0 cetirizine 10 mg Tablet 5 mg PO DAILY RF: 0 Referrals Referrals: Siva Nogueira MD [Primary Care Provider] - The scribe's documentation has been prepared under my direction and personally reviewed by me in its entirety. I confirm that the note above accurately reflects all work, treatment, procedures, and medical decision making performed by me.
--- NOTE | 2019-10-07 22:39 | History & Physical Report ---
Date of Service October 07, 2019 Assessment & Plan (1) TIA (transient ischemic attack): TIA/strokelike symptoms that began 4 days ago- The patient will be admitted to telemetry for serial cardiac enzymes, serial EKG's, cardiac rhythm monitoring and a 2-D echocardiogram with Dopplers. Stroke without TPA protocol order set. Manifesting as slurred speech and difficulty swallowing, which have both improved. Left occipital neck and head discomfort are persistent, along with ambulatory dysfunction and periodic sense of falling to the left. CT of head without contrast negative. CTA head and neck showed less than 50% bilateral ICA stenosis, but did note mild pretracheal adenopathy. Follow-up CT of chest without contrast notes the above adenopathy is likely reactive. Patient denies difficulty with respirations, but does report difficulty swallowing. Further work-up will depend upon speech assessment Present on Admission?: Yes (2) Slurring of speech: See above Present on Admission?: Yes (3) Dysphagia: See above Present on Admission?: Yes (4) Atrial fibrillation: Atrial fibrillation on chronic oral anticoagulation with Eliquis/hypertension. Hold HCTZ due to hypokalemia. Continue metoprolol succinate 50 mg p.o. every morning once passes dysphagia screening resume Eliquis when passes dysphagia screening Present on Admission?: Yes (5) On continuous oral anticoagulation: See above Present on Admission?: Yes (6) Hypertension: See above Present on Admission?: Yes (7) Hypercholesterolemia: Has been on pravastatin 20 mg at bedtime. Should be changed to high-dose statin once able to swallow normally Present on Admission?: Yes (8) Lumbar spinal stenosis: Difficulty with ambulation may be secondary to spinal stenosis. If brain work-up is negative in this regard, may need to have an MRI of her lumbar spine. Present on Admission?: Yes History of Present Illness Chief Complaint: The patient presents to the emergency department with slurred speech, right shoulder pain, left occipital pain and occasionally imbalance when trying to walk over the past 4 days. Primary Care Provider: Domenci Nogueira MD The patient is a 74-year-old female with a past medical history including atrial fibrillation, hypercholesterolemia, lumbar spinal stenosis, chronic back pain, chronic anticoagulation with Eliquis and hypertension. She presents to the emergency department, with her granddaughter and daughter in the room, with complaint of right shoulder pain for past few weeks. 4 days ago she had de veloped slurred speech which has somewhat improved, with difficulty with swallowing, left posterior occipital area pain, and occasional imbalance where she feels her self drifting to the left she has continued to have low back discomfort, but denies any bowel or bladder incontinence or any radicular type symptoms into the legs. She lives at home with her daughter. Allergies Allergy/AdvReac Type Severity Reaction Status Date / Time moxifloxacin AdvReac Intermediate Confusion Verified 10/07/19 20:38 irbesartan [From Avapro] AdvReac Unknown Verified 10/07/19 20:37 Home Medications Home Medications Medication Instructions Recorded Confirmed Type Eliquis 5 mg PO BID 11/25/18 10/07/19 History metoprolol succinate 50 mg 50 mg PO QAM #30 tab 03/16/19 10/07/19 Rx tablet,extended release 24 hr pravastatin 20 mg tablet 20 mg PO HS #90 tab 04/13/19 10/07/19 Rx cholecalciferol (vitamin D3) 25 2,000 units PO QDL cap 04/20/19 10/07/19 History mcg (1,000 unit) capsule prednisone 20 mg tablet 20 mg PO DAILY PRN #20 tab 05/19/19 10/07/19 Rx potassium chloride 10 mEq 30 meq PO QAM #90 tab 07/08/19 10/07/19 Rx tablet,extended release(part/cryst) hydrochlorothiazide 25 mg tablet 25 mg PO DAILY #90 tab 09/15/19 10/07/19 Rx cetirizine 5 mg PO DAILY 10/07/19 10/07/19 History Past Med/Surg History Medical History Atrial fibrillation Hyperlipidemia Hypertension Kidney stones Morbid obesity Spinal stenosis Surgical History History of arthroscopy RIGHT KNEE History of cataract surgery BILATERAL History of colonoscopy Family History Brother Family hx of colon cancer Mother Family history of diabetes mellitus Social History Preferred Language: Finnish Communication Ability: Effective County Adviser Required: No Beliefs That Will Affect Care: None Current Living Situation: Family Current Living Situation Comment: dtr Feels Safe at Home: Yes Smoking Status: Never smoker Second Hand Exposure: No ; Hx Alcohol Use: No Hx Substance Use: No Review of Systems Review of Systems: The patient denies chest pain, palpitations, shortness of breath, dyspnea on exertion, cough, lower extremity swelling, sore throat, fevers, chills, sweats, nausea, vomiting, diarrhea , constipation, abdominal pain, pelvic pain, blood in urine or stool, dysuria, urinary frequency or urgency, memory loss, loss of consciousness, rash, abnormal bruising or bleeding, focal weakness, numbness or tingling in legs, generalized arthralgias or myalgias, or night sweats. The review of systems is otherwise negative other than for that already noted above, and at least 10 systems have been reviewed. Physical Exam Physical Exam: The patient is awake, alert and oriented 3, well developed and well nourished, normocephalic and atraumatic, lying in bed and in no acute distress. HEENT--PERRL, EOMI, mucous membranes and oropharynx dry. Neck--supple. No JVD. No bruits. Thyroid normal, trachea midline, no adenopathy. Heart--normal S1 and S2. No murmurs, rubs or gallops. Lungs--clear bilaterally, no respiratory distress, no accessory muscle use. Abdomen--normal bowel sounds and soft. Nontender. Nondistended. Extremities--no cyanosis or clubbing. No edema. Dermatologic--normal skin turgor, normal color, no abnormal lymph nodes, no rash. Neurologic--cranial nerves II through XII grossly intact. Normal strength and sensation upper and lower extremities Rheumatologic--normal range of motion. Psychiatric--normal affect. Results & Data Vital Signs (Past 12 Hours) Vital Signs Temp Pulse Pulse Resp BP BP Pulse Ox 10/07/19 21:16 67 18 197/93 H 94 10/07/19 18:48 97.7 F 82 20 168/91 H 95 Laboratory Results Laboratory Results WBC 5.37 K/uL (4.8-10.8) 10/07/19 19:45 RBC 4.49 M/uL (4.2-5.4) 10/07/19 19:45 Hgb 13.3 g/dL (12.0-16.0) 10/07/19 19:45 Hct 39.7 % (37-47) 10/07/19 19:45 MCV 88.4 fL (80-100) 10/07/19 19:45 MCH 29.6 pg (25-34) 10/07/19 19:45 MCHC 33.5 g/dL (32-36) 10/07/19 19:45 RDW Std Deviation 46.3 fL (36.4-46.3) 10/07/19 19:45 RDW Coeff of Juanjo 14.3 % (11.5-14.5) 10/07/19 19:45 Plt Count 263 K/uL (130-400) 10/07/19 19:45 MPV 10.7 fL (7.4-10.4) H 10/07/19 19:45 Immature Gran % (Auto) 0.0 % 10/07/19 19:45 Neut % (Auto) 57.8 % 10/07/19 19:45 Lymph % (Auto) 25.7 % 10/07/19 19:45 Roane % (Auto) 11.4 % 10/07/19 19:45 Eos % (Auto) 4.7 % 10/07/19 19:45 Baso % (Auto) 0.4 % 10/07/19 19:45 Immature Gran # (Auto) 0.00 K/uL (0.00-0.02) 10/07/19 19:45 Neut # (Auto) 3.11 K/uL (1.4-6.5) 10/07/19 19:45 Lymph # (Auto) 1.38 K/uL (1.2-3.4) 10/07/19 19:45 Roane # (Auto) 0.61 K/uL (0.11-0.59) H 10/07/19 19:45 Eos # (Auto) 0.25 K/uL (0-0.5) 10/07/19 19:45 Baso # (Auto) 0.02 K/uL (0-0.2) 10/07/19 19:45 PT 10.6 Seconds (9.0-12.0) 10/07/19 19:45 INR 1.0 (0.9-1.1) 10/07/19 19:45 APTT 25.9 Seconds (21.0-31.0) 10/07/19 19:45 PTT Ratio 1.0 10/07/19 19:45 Sodium 139 mmol/L (136-145) 10/07/19 19:45 Potassium 3.3 mmol/L (3.5-5.1) L 10/07/19 19:45 Chloride 104 mmol/L (98-107) 10/07/19 19:45 Carbon Dioxide 30 mmol/L (21-32) 10/07/19 19:45 Anion Gap 5.0 (3-11) 10/07/19 19:45 BUN 20 mg/dl (7-18) H 10/07/19 19:45 Creatinine 0.98 mg/dl (0.6-1.2) 10/07/19 19:45 Est Cr Clr Drug Dosing 48.4 ml/min 10/07/19 19:45 Est GFR ( Amer) 64.9 10/07/19 19:45 Est GFR (Non-Af Amer) 56.0 10/07/19 19:45 BUN/Creatinine Ratio 20.8 (10-20) H 10/07/19 19:45 Glucose 120 mg/dl (70-99) H 10/07/19 19:45 POC Glucose 120 mg/dl (70-99) H 10/07/19 19:28 Calcium 9.2 mg/dl (8.5-10.1) 10/07/19 19:45 Magnesium 1.9 mg/dl (1.8-2.4) 10/07/19 19:45 Total Bilirubin 0.5 mg/dl (0.2-1) 10/07/19 19:45 AST 14 U/L (15-37) L 10/07/19 19:45 ALT 19 U/L (12-78) 10/07/19 19:45 Alkaline Phosphatase 75 U/L (45-117) 10/07/19 19:45 Troponin I < 0.015 ng/ml (0-0.045) 10/07/19 19:45 Total Protein 7.5 gm/dl (6.4-8.2) 10/07/19 19:45 Albumin 3.3 gm/dl (3.4-5.0) L 10/07/19 19:45 Globulin 4.2 gm/dl (2.5-4.0) H 10/07/19 19:45 Albumin/Globulin Ratio 0.8 (0.9-2) L 10/07/19 19:45 Urine Color Yellow 10/07/19 20:05 Urine Appearance Cloudy (Clear) A 10/07/19 20:05 Urine pH 6.0 (4.5-7.5) 10/07/19 20:05 Ur Specific [place] 1.007 (1.000-1.030) 10/07/19 20:05 Urine Protein Negative (Negative) 10/07/19 20:05 Urine Glucose (UA) Negative (Negative) 10/07/19 20:05 Urine Ketones Negative (Negative) 10/07/19 20:05 Urine Blood Negative (Negative) 10/07/19 20:05 Urine Nitrite Negative (Negative) 10/07/19 20:05 Urine Bilirubin Negative (Negative) 10/07/19 20:05 Urine Urobilinogen Negative (Negative) 10/07/19 20:05 Ur Leukocyte Esterase Trace (Negative) H 10/07/19 20:05 Urine WBC (Auto) 5-10 /hpf (0-5) H 10/07/19 20:05 Urine RBC (Auto) 0-4 /hpf (0-4) 10/07/19 20:05 U Hyaline Cast (Auto) 0 /lpf (0-5) 10/07/19 20:05 U Epithel Cells (Auto) 20-30 /lpf (0-5) H 10/07/19 20:05 Urine Bacteria (Auto) Negative (Negative) 10/07/19 20:05 Diagnostic Findings [place], [place] [phone] CT Scan Report Patient: SAMANTHA MENJIVAR LAdmit Date: 10/07/19 MR#: [id number]: [address] [facility] Acct ID:[id number]: [address] [facility] Zip: [place] [id number] Age: 74Location: ED Sex: F Room/Bed: Att Phy:Diagnosis: SPEECH ISN'T RIGHT, PAIN FROM NECK TO HEAD Suni Phy: Domenic Nogueira MDService Date: 10/07/19 Fam Phy:Interpreting Phy: Yoel Vazquez Admit Phy: Ordering Phy: Baldemar Brooks MD cc: ~ CT head/brain wo con CLINICAL HISTORY: 74 years-old Female with Stroke evaluation . Acute headache with light sensitivity TECHNIQUE: Multiple axial CT images of the head were obtained without contrast. A dose lowering technique was utilized adhering to the principles of ALARA. CT DOSE: 537.48 mGy.cm COMPARISON: None. FINDINGS: No acute intracranial hemorrhage, midline shift, intracranial mass, hydrocephalus, territorial ischemia or abnormal extra-axial collection. Minimal age-related involutional changes. The calvarium is intact. Prior bilateral lens replacement. The paranasal sinuses, mastoid air cells, and middle ear cavities are clear. IMPRESSION: No acute intracranial abnormality. ACT 112: Negative or not required by law. The above report was generated using voice recognition software. It may contain grammatical, syntax or spelling errors. Results electronically sent 10/07/2019 8:21 PM to: Baldemar Brooks MD Electronically signed by: Mina Vazquez M.D. 10/07/2019 8:21 PM Dictated: 10/07/192018 Transcribed: 10/07/192018 [place], [place] [phone] CT Scan Report Patient: SAMANTHA MENJIVAR Date: 10/07/19 MR#: [id number]: [facility] Acct ID:[id number]: [address] Date: [address] [place] [address] Zip: [place] [address] Age: 74Location: ED Sex: F Room/Bed: Att Phy:Diagnosis: SPEECH ISN'T RIGHT, PAIN FROM NECK TO HEAD Suni Phy: Domenic Nogueira MDService Date: 10/07/19 [facility] Phy:Interpreting Phy: Yoel Vazquez Admit Phy: Ordering Phy: Baldemar Brooks MD cc: ~ CT angio neck with con, CT angio head w con CLINICAL HISTORY: 74 years-old Female with slurred speech, dysphagia. Acute strokelike symptoms with slurred speech COMPARISON STUDY: Head CT of same day TECHNIQUE: Following the IV administration of 119 mL of Optiray 320, CT angiogram of the head and neck was performed from the aortic arch to the skull apex. Images are reviewed in the axial, sagittal, and coronal planes. 3-D MIPS images are created and assessed. IV contrast was administered without complicati on. All measurements were calculated based on NASCET criteria. A dose lowering technique was utilized adhering to the principles of ALARA. CT DOSE: 523.46 mGy.cm FINDINGS: The imaged opacified pulmonary arterial tree is unremarkable. Moderate mixed plaque of the thoracic aortic arch without aneurysm identified. Mild less than 50% luminal narrowing at the origin of the left subclavian artery. Unremarkable right subclavian artery. The bilateral common carotid arteries are patent. Moderate mixed plaque of the bilateral carotid bulbs results in less than 50% luminal narrowing bilaterally. There is approximately 50% luminal narrowing involving the proximal left external carotid artery. There is a 3 mm ovoid structure suggestive of aneurysmal dilation involving a small branch of the left external carotid adjacent to the bulb on image 203 of series 2. Medial course of the bilateral internal carotid arteries which are patent and otherwise unremarkable. The bilateral middle cerebral arteries are patent demonstrating multifocal areas of mild luminal narrowing. Anterior vertebral arteries are patent and unremarkable. Codominant vertebral arteries. The left vertebral artery originates from the aortic arch. Diminutive basilar artery is patent. origin of the left posterior cerebral artery. The bilateral posterior cerebral arteries appear patent. Cerebral venous sinuses are also patent. There is no aneurysm, dissection, high-grade stenosis or proximal branch occlusion identified. Mosaic attenuation of the lung apices suggests air-trapping. No pneumothorax. No abnormal intracranial enhancement. Partially imaged mildly enlarged prevascular/AP window lymph nodes with prominent pretracheal lymph nodes. Mild enlargement of the adenoid tonsils. Degenerative changes of the spine. IMPRESSION: 1. 50% luminal narrowing involves the origin of the left external carotid artery. 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 2. Moderate mixed plaque of the bilateral carotid bulbs results in less than 50% luminal narrowing of the bilateral internal carotid arteries. 3. No dissection, high-grade stenosis or proximal branch occlusion. 4. Partially imaged mild adenopathy of the upper mediastinum, nonspecific. ACT 112: Negative or not required by law. The above report was generated using voice recognition software. It may contain grammatical, syntax or spelling errors. Results electronically sent 10/07/2019 8:42 PM to: Baldemar Brooks MD Electronically signed by: Mina Vazquez M.D. 10/07/2019 8:42 PM Dictated: 10/07/192031 Transcribed: 10/07/192031 [facility] [phone] CT Scan Report Patient: SAMANTHA MENJIVAR Date: 10/07/19 MR#: [id number]: [address] Acct ID:[id number]: [address] [facility] Zip: [place] [address] Age: 74Location: ED Sex: F Room/Bed: Att Phy:Diagnosis: SPEECH ISN'T RIGHT, PAIN FROM NECK TO HEAD Suni Phy: Domenic Nogueira MDService Date: 10/07/19 Fam Phy:Interpreting Phy: Yoel Vazquez Admit Phy: Ordering Phy: Baldemar Brooks MD cc: ~ CT chest wo con CT DOSE: 1127.65 mGy.cm CLINICAL HISTORY: 74 years-old Female with slurred speech, hospitalist requested. Acute shortness of breath TECHNIQUE: Multiaxial CT images of the chest were performed without contrast. A dose lowering technique was utilized adhering to the principles of ALARA. COMPARISON: Chest CT 12/08/2008 FINDINGS: Unremarkable thyroid. There are a few prominent paratracheal, AP window and subcarinal lymph nodes measuring up to 9 mm, likely on a physiologic basis. Heart is upper limits of normal in size. Mild aortic annular calcifications. Calcified plaque of the thoracic aorta. No pneumothorax or pleural effusion. Mosaic attenuation of the bilateral lungs is noted with intermixed groundglass densities suggestive of atelectasis. 4 mm nodular density focus abuts the superior aspect of the right major fissure on image 86 of series 4, unchanged suggestive of a benign lymph node. No overt pulmonary edema or airspace consolidation typical for pneumonia. 4 mm groundglass opacity of the right middle lobe. 3 mm subpleural nodule of the lateral segment right middle lobe is unchanged and likely benign. 4 mm subpleural nodular opacity of the apical posterior segment left upper lobe on image 59 series 4 is unchanged and also likely benign. The central airways appear patent. No acute process of the imaged upper abdomen. Soft tissues are unremarkable. Bones appear intact. Degenerative changes of the shoulders and spine. IMPRESSION: 1. No pleural effusion or airspace consolidation typical for pneumonia. 2. Multilobar bilateral distribution of mosaic attenuation with groundglass densities suggests air-trapping with atelectasis. 3. Mildly prominent mediastinal lymph nodes, likely reactive. ACT 112: Negative or not required by law. Results electronically sent 10/07/2019 9:45 PM to: Baldemar Brooks MD Electronically signed by: Mina Vazquez M.D. 10/07/2019 9:45 PM Dictated: 10/07/192137 Transcribed: 10/07/192137 Code Status & VTE Plan Code Status Full code VTE Prophylaxis Plan VTE Prophylaxis will be ordered: Yes PG Care Time/CCT Total # of Minutes Spent Total Time Spent with Patient: Total time spent is greater than 50% in coordination of care (as documented) at patient's floor/unit and/or counseling patient: Coding Level of Care Code 27001 Initial Inpt Care Lvl 3 Diagnoses TIA (transient ischemic attack) G45.9 Slurring of speech R47.81 Dysphagia R13.10 Atrial fibrillation I48.91 On continuous oral anticoagulation Z79.01 Hypertension I10 Hypercholesterolemia E78.00 Lumbar spinal stenosis M48.061
[2019-10-08] MEDS ORDERED: PHARMACIST DISCHARGE MED REC CONSULT PRN (00:02)
[2019-10-08] MEDS ORDERED: ONDANSETRON INJ 2 MG/ML 2 ML VIAL IV PRN (00:02)
[2019-10-08] MEDS: APIXABAN 5 MG TABLET PO SCH ×3 (01:05→20:51)
--- NOTE | 2019-10-08 07:06 | Magnetic Resonance Report ---
MR brain wo con CLINICAL HISTORY: 74 years-old Female presenting with slurred speech, dysphagia, TIA. TECHNIQUE: Multisequence, multiplanar MR imaging of the brain was performed without the use of intrav enous contrast. IV contrast: None. COMPARISON: Noncontrast CT head from 10/07/2019. FINDINGS: Localizer images: Unremarkable. Bone marrow signal intensity within the calvarium within normal limits. Normal midline sagittal structures. Partially empty sella noted, which can be a normal variant. Ventr icles and sulci normal in size. No mass effect or midline shift. No restricted diffusion or hemorrhag e. Periventricular and subcortical white matter T2/FLAIR hyperintensity, nonspecific but likely indic ative of chronic small vessel ischemic change. No extra-axial fluid collection. T2 skull base flow voids preserved. Bilateral [place] lenses are abse nt. IMPRESSION: 1. Chronic small vessel ischemic change. No acute intracranial abnormality. ACT 112: Negative or not required by law. Results electronically sent 10/08/2019 7:05 AM to: Baldemar Brooks MD Electronically signed by: George Tineo M.D. 10/08/2019 7:05 AM
[2019-10-08 07:25] LABS: Estimated Average Glucose 126 mg/dl
--- NOTE | 2019-10-08 07:41 | Magnetic Resonance Report ---
MRI OF THE LUMBAR SPINE WITHOUT CONTRAST CLINICAL HISTORY: Lower extremity weakness. COMPARISON STUDY: Lumbar spine CT May 15, 2016. TECHNIQUE: Utilizing a 1.5 Pamela magnet and dedicated coil, multiplanar, multiecho imaging of [facility] spine was performed without IV contrast. FINDINGS: For purposes of numbering on this exam, the L5-S1 disc space is assigned to axial image 2528. Alignme nt of the lumbar spine is anatomic. Vertebral body heights are maintained. There is no fracture or mariano spicious marrow replacement. Tarlov cyst within the sacrum is noted. There is no intracanalicular mas s or fluid collection. Conus terminates at the L1-L2 level. Paravertebral soft tissues are unremarkab le. L1-2: There is mild disc space narrowing with disc bulge and facet arthrosis. There is mild narrowing of the central canal, lateral recesses. L2-3: There is disc space narrowing with disc bulge with ligamentous hypertrophy and facet arthrosis. There is mild to moderate narrowing of the central canal and lateral recesses. There is mild bilater al neural foraminal stenosis. L3-4: There is moderate disc space narrowing with disc bulge, ligamentous hypertrophy and facet arthr osis. There is mild narrowing of the central canal and lateral recesses with moderate bilateral neura l foraminal stenosis. L4-5: There is disc space narrowing with disc bulge, ligamentous hypertrophy and facet arthrosis. The re is mild central canal stenosis. There is moderate bilateral neural foraminal stenosis. L5-S1: There is facet arthrosis. Central canal is patent. There is mild bilateral neural foraminal st enosis. IMPRESSION: 1. No acute findings within the lumbar spine by MRI. 2. Moderate multilevel facet arthrosis and mild multilevel degenerative disc disease. Mild to moderat e central canal stenosis at L2-L3. Moderate multilevel neural foraminal stenosis. ACT 112: Negative or not required by law. Results electronically sent 10/08/2019 7:40 AM to: Derik Roe MD Electronically signed by: Angel Benitez M.D. 10/08/2019 7:40 AM
--- NOTE | 2019-10-08 07:52 | Magnetic Resonance Report ---
CERVICAL SPINE MRI HISTORY: occipital headaches TECHNIQUE: Multiplanar multisequence MRI of the cervical spine was performed without the use of contr ast. COMPARISON STUDY: None. FINDINGS: Straightening of the cervical spine. Mild disc space narrowing from C3 through T1. There ar e endplate osteophytes at these levels. The visualized posterior fossa is unremarkable. The cervical spinal cord demonstrates a normal signal intensity. No fractures within the cervical spine. Preverteb ral soft tissues and the C1-C2 interval are intact. C2-C3: No significant central canal or neural foraminal narrowing. C3-C4: Broad-based posterior disc osteophyte complex which abuts and slightly deforms anterior cord c onsistent mild central canal narrowing. There are severe right and mild left neural foraminal narrowi ng. C4-C5: Broad-based posterior disc osteophyte complex with a focal central disc protrusion which abuts and significantly deforms/flattens the cord. This is consistent with moderate to severe ventral norberto l narrowing. No cord edema identified. There is severe right and mild left neural foraminal narrowing . C5-C6: Broad-based posterior disc osteophyte complex which abuts and slightly deforms anterior cord c onsistent with mild to moderate central canal narrowing. There is mild right and moderate left neural foraminal narrowing. C6-C7: No significant central canal narrowing. There is severe bilateral neural foraminal narrowing d ue to the uncovertebral hypertrophy. C7-T1: Small broad-based posterior disc bulge without significant central canal narrowing. There is s evere bilateral neural foraminal narrowing. T1-T2: Small focal central disc protrusion without significant central canal narrowing. IMPRESSION: 1. There is a broad-based posterior disc bulge with a focal central disc protrusion at C4-C5 which ab uts and significantly deform/flattens the cord. This is consistent with moderate to severe central ca nal narrowing. 2. There is also [id number] central canal narrowing at C5-C6 due to a broad-based posterior dis c osteophyte complex. This also deforms anterior cord. 3. Multilevel bilateral neural foraminal narrowing as described above. ACT 112: Negative or not required by law. Results electronically sent 10/08/2019 7:50 AM to: Derik Roe MD Electronically signed by: Narciso Cueto M.D. 10/08/2019 7:50 AM
--- NOTE | 2019-10-08 09:23 | Consultation ---
Date of Consultation October 08, 2019 Assessment & Plan (1) Dysphagia: (2) Difficulty with speech: (3) Cervical stenosis of spine: (4) Lumbar spinal stenosis: (5) Hypertension: (6) Hypercholesterolemia: (7) Atrial fibrillation: History of Present Illness Attending Physician: José Horn MD Allergies Allergy/AdvReac Type Severity Reaction Status Date / Time moxifloxacin AdvReac Intermediate Confusion Verified 10/07/19 20:38 irbesartan [From Avapro] AdvReac Unknown Verified 10/07/19 20:37 Home Medications Home Medications Medication Instructions Recorded Confirmed Type Eliquis 5 mg PO BID 11/25/18 10/07/19 History metoprolol succinate 50 mg 50 mg PO QAM #30 tab 03/16/19 10/07/19 Rx tablet,extended release 24 hr pravastatin 20 mg tablet 20 mg PO HS #90 tab 04/13/19 10/07/19 Rx cholecalciferol (vitamin D3) 25 2,000 units PO QDL cap 04/20/19 10/07/19 History mcg (1,000 unit) capsule prednisone 20 mg tablet 20 mg PO DAILY PRN #20 tab 05/19/19 10/07/19 Rx potassium chloride 10 mEq 30 meq PO QAM #90 tab 07/08/19 10/07/19 Rx tablet,extended release(part/cryst) hydrochlorothiazide 25 mg tablet 25 mg PO DAILY #90 tab 09/15/19 10/07/19 Rx cetirizine 5 mg PO DAILY 10/07/19 10/07/19 History Patient History Medical History (Updated 10/08/19 @ 09:29 by Mina Palomares MD) Atrial fibrillation Hyperlipidemia Hypertension Kidney stones Lumbar spinal stenosis Morbid obesity Surgical History History of arthroscopy RIGHT KNEE History of cataract surgery BILATERAL History of colonoscopy Family History Brother Family hx of colon cancer Mother Family history of diabetes mellitus Social History Preferred Language: Lao Communication Ability: Effective Carcass Splitter Required: No Beliefs That Will Affect Care: None Current Living Situation: Family Current Living Situation Comment: dtr Feels Safe at Home: Yes Smoking Status: Never smoker Second Hand Exposure: No ; Hx Alcohol Use: No Hx Substance Use: No Results & Data ([facility]) Vital Signs (Past 12 Hours) Vital Signs Temp Pulse Resp BP BP Pulse Ox Pulse Ox 10/08/19 06:55 36.6 C 68 18 139/70 95 10/08/19 04:27 36.4 C L 69 18 136/70 91 10/08/19 00:07 36.5 C 73 16 167/90 H 94 10/08/19 00:02 94 ECG Rate (beats per minute): 63 Rhythm: sinus rhythm Findings: + 1st degree AV block Additional Comments: QTc 425. Resident Activity Tracking Resident Involvement: Resident Care Provided Care Provided: Adult Hospital Medicine (Neurology service)
[2019-10-08 09:29] LABS: Basophils # (auto) 0.02 K/uL (0-0.2); Basophils % (auto) 0.4 %; Eosinophils # (auto) 0.22 K/uL (0-0.5); Eosinophils % (auto) 4.3 %; Hematocrit (blood only) 40.7 % (37-47); Hemoglobin 13.9 g/dL (12.0-16.0); Immature Granulocytes # (auto) 0.01 K/uL (0.00-0.02); Immature Granulocytes % (auto) 0.2 %; Lymphocytes # (auto) 1.23 K/uL (1.2-3.4); Lymphocytes % (auto) 23.8 %; Mean Corpuscular Hemoglobin 29.8 pg (25-34); Mean Corpuscular Hgb Conc 34.2 g/dL (32-36); Mean Corpuscular Volume 87.2 fL (80-100); Mean Platelet Volume 10.3 fL (7.4-10.4); Monocytes # (auto) 0.37 K/uL (0.11-0.59); Monocytes % (auto) 7.2 %; Neutrophils # (auto) 3.31 K/uL (1.4-6.5); Neutrophils % (auto) 64.1 %; Platelet Count 234 K/uL (130-400); RDW Coefficient of Variation 14.5 % (11.5-14.5); RDW Standard Deviation 45.8 fL (36.4-46.3); Red Blood Count 4.67 M/uL (4.2-5.4); White Blood Count 5.16 K/uL (4.8-10.8)
[2019-10-08] MEDS: ASPIRIN 81 MG ECTAB PO SCH (09:37)
[2019-10-08 09:55] LABS: BUN Creatinine Ratio 17.5 (10-20); Blood Urea Nitrogen 17 mg/dl (7-18); Calcium 9.4 mg/dl (8.5-10.1); Carbon Dioxide 32 mmol/L (21-32); Chloride 105 mmol/L (98-107); Creatinine Clr Calc Pharmacy 48.9 ml/min; Est GFR (African American) 67.4; Est GFR (Non-African American) 58.2; Glucose 130 mg/dl (70-99); Potassium 3.4 mmol/L (3.5-5.1); Sodium 139 mmol/L (136-145)
[2019-10-08 09:59] LABS: Chol HDL Ratio 3; Cholesterol 164 mg/dl (0-200); HDL Cholesterol 61 mg/dl; LDL Cholesterol Calculated 69 mg/dl; Triglycerides 169 mg/dl (0-150); Troponin I < 0.015 ng/ml (0-0.045); VLDL Cholesterol 34 mg/dl
--- NOTE | 2019-10-08 10:03 | Neurology Consultation ---
Date of Consultation October 08, 2019 Assessment & Plan (1) Dysphagia: NEUROLOGY CONSULT NOTE 74-year-old female was admitted to the medicine service on 07 October 2019 for concern for stroke-like symptoms regarding speech/swallow changes beginning about three days prior. Neurology was consulted for "stroke-like symptoms". Dysphasia, difficulty with speech, cervical spinal stenosis: Patient notes the onset of some posterior cervical pain around 5-10 days ago. No known trauma or inciting events. Over the past 3-4 days she has noticed changes in speech and difficulty with left-sided tongue movement / chewing / swallowing. Her mild frontal headache seems non-contributory. No known history of cerebrovascular disease. On exam, she does have some leftward tongue weakness but no evidence of other focal cranial nerve or other central/peripheral nervous deficits. CT head, MRI brain, as well as CTA of the head and neck do not show any evidence of an acute CVA or other imaging evidence to correlate with her tongue/speech symptoms. However, the MRI of her cervical spine notes compression at the C4-5 level. This should not be the cause of her current speech/tongue symptoms and is not presently causing her any cervical radicular, upper motor neuron symptoms/deficits, or respiratory difficulties. - As this does not seem to be an acute CVA, no specific recommendations for acute CVA-type treatment or risk modification are advised. Of course, general cardiovascular disease modification recommendations based on age and comorbidities apply. - In order to fully evaluate the brainstem, she could be sent for a 3T MRI of the same, though that could be done as an outpatient. - We do recommend that she have a consult placed for spinal surgical evaluation to see if she is a candidate for a decompression procedure. - She does have a pending formal speech evaluation, though there is no present evidence of overt difficulty swallowing. Lumber spinal stenosis: As noted on MRI. Known prior history of the same without evidence of acute deficits. Management per primary service. Hypertension, hypercholesterolemia, atrial fibrillation, morbid obesity: Management per primary service. Please see addendum by Dr. Lopez (staff neurologist) for further discussion and recommendations. (2) Difficulty with speech: (3) Cervical stenosis of spine: (4) Lumbar spinal stenosis: (5) Hypertension: (6) Hypercholesterolemia: (7) Atrial fibrillation: History of Present Illness Reason for Consultation: "stroke-like" symptoms Requesting Physician: Dr. Roe Attending Physician: José Horn MD History of Present Illness 74-year-old female presented to the emergency department on 07 October 2019 after noticing some changes in her speech as well as some difficulty with chewing/swallowing. - The exact date of onset of the symptoms varied slightly on repeat interviews, though in general it is thought that the patient noticed a change in her speech this past Friday/Friday-. She described it as a little bit of difficulty getting her words out and occasional saying a word that she did not quite intend. She noticed this while shopping with her daughter. Patient reports that at the time her daughter did not noticed similar symptoms. However, about 24 hours later her family did notice she was slurring her speech bit more. Patient denies any prior history of the same. - Patient says around the same time as this speech difficulty she began to have some difficulty with chewing on the left side of her mouth. She also says it was a little bit more difficult to swallow but she was still able to do so. Patient denies any prior history of the same. - Patient denies any other acute concerns. On review of systems, patient says she has had some posterior neck discomfort that is been present for perhaps 5 to 10 days now. She denies history of the same. She denies any known trauma or other injuries, radicular symptoms into her shoulders or arms, and she has not taken any medications for this. She notes a bilateral frontal headache [pointing to] her superior orbits that remains localized there for a similar period of time. She has with some cold compresses which seemed to help. Has not taken any medicines for this. Denies any history of a similar headache, though she says that she had "migraines" many years ago. This does not feel like a migraine. She denies any generalized headache, blurry vision or visual field difficulties, nausea or vomiting, vertiginous symptoms, or hearing difficulties. - She does have a known history of lumbar disc disease and stenosis. She says that she has some ongoing low back pain, particularly when standing for long periods of time such as doing dishes. She denies any recent changes to this, gait difficulties, known incontinence, or any falls. She does walk with a cane for the past couple of years because of this. - She does have a baseline history of hypertension, hyperlipidemia, as well as atrial fibrillation. She did have a cardioversion for this back in 2019. She takes her medications including Eliquis regularly. - At the time of your H&P, her granddaughter at bedside says that she is still slurring her words a bit compared to her normal. Otherwise she does not note any other changes in the patient's neuro status. Allergies Allergy/AdvReac Type Severity Reaction Status Date / Time moxifloxacin AdvReac Intermediate Confusion Verified 10/07/19 20:38 irbesartan [From Avapro] AdvReac Unknown Verified 10/07/19 20:37 Home Medications Home Medications Medication Instructions Recorded Confirmed Type Eliquis 5 mg PO BID 11/25/18 10/07/19 History metoprolol succinate 50 mg 50 mg PO QAM #30 tab 03/16/19 10/07/19 Rx tablet,extended release 24 hr pravastatin 20 mg tablet 20 mg PO HS #90 tab 04/13/19 10/07/19 Rx cholecalciferol (vitamin D3) 25 2,000 units PO QDL cap 04/20/19 10/07/19 History mcg (1,000 unit) capsule prednisone 20 mg tablet 20 mg PO DAILY PRN #20 tab 05/19/19 10/07/19 Rx potassium chloride 10 mEq 30 meq PO QAM #90 tab 07/08/19 10/07/19 Rx tablet,extended release(part/cryst) hydrochlorothiazide 25 mg tablet 25 mg PO DAILY #90 tab 09/15/19 10/07/19 Rx cetirizine 5 mg PO DAILY 10/07/19 10/07/19 History Patient History Medical History Atrial fibrillation Hyperlipidemia Hypertension Kidney stones Lumbar spinal stenosis Morbid obesity Surgical History History of arthroscopy RIGHT KNEE History of cataract surgery BILATERAL History of colonoscopy Family History Brother Family hx of colon cancer Mother Family history of diabetes mellitus Social History Preferred Language: Amharic Communication Ability: Effective Comfort Station Attendant Required: No Beliefs That Will Affect Care: None Current Living Situation: Family Current Living Situation Comment: dtr Feels Safe at Home: Yes Smoking Status: Never smoker Second Hand Exposure: No ; Hx Alcohol Use: No Hx Substance Use: No Review of Systems Review of Systems: Constitutional: Denies fevers, chills, focal weakness Eyes: Denies any visual loss or diplopia ENT: Denies any ear/nose/throat pain. Positive speech and swallow concerns as per HPI. Respiratory: Denies any dyspnea, cough, hemoptysis Cardiovascular: Denies any chest pain or feeling of edema Gastrointestinal: Denies any abdominal pain, nausea/vomiting/diarrhea Musculoskeletal: Denies any acute extremity pains, myalgias, or focal weakness (except swallow as above). Skin: Denies any known acute rashes or lesions Neuro: See HPI. Psych: Denies any recent depression or anxiety Physical Exam 2 Physical Exam: GENERAL: Awake, alert, well-appearing, in no acute distress. Initially saw her eating breakfast sitting up in bed. On re-evaluation she was sitting comfortably in the bedside chair. HENT: Normocephalic, atraumatic. Oropharynx unremarkable with the exception of no natural teeth. EYES: Normal conjunctiva. Sclera non-icteric. PERRL, EOMI without pain, difficulty, or evidence of visual field deficit. NECK: Inspection normal. Non-tender. Supple and full ROM. No nuchal rigidity. CARDIAC: +S1S2 RRR, no murmurs. RESPIRATORY: Clear to auscultation. No wheezes or rales. Normal respiratory effort. EXTREMITIES: No pedal edema or calf tenderness. Moving all extremities naturally and easily. PSYCH: Normal mood and affect. NEURO: - Cranial nerves II-X intact (IX not checked) with the exception of motor difficulty in movement of the tongue towards the left. There is a slight leftward deviation on tongue protrusion. - There is minimally-reproducible posterior neck discomfort on patient's AROM of flexion of her neck. No noted radicular symptoms into her shoulders or arms with this movement. - Gait is fluid with no ataxia and turns easily without assistance. - Motor strength is 5/5 both proximally and distally in the bilateral upper and lower extremities. - Sensation is equal and intact throughout the m/r/u nerve distributions of the upper extremities and through the L4-S1 distributions of the lower extremities bilaterally. - On bilateral arm extension there is a right hand action/essential tremor. This resolves immediately upon resting her arm. No similar tremor on the left. - Reflexes are 2/4 in the biceps, triceps, brachioradialis, quadriceps, and Achilles tendons bilaterally. - Toes are downgoing with plantar stimulation bilaterally. - Regarding speech, overall is quite fluent both with receptive and expressive language during conversation. No overt word finding or substitution issues identified. On repeating "[place]) there was a slight slurring of her speech. Per patient's granddaughter at bedside, she does have slight slurring of her general speech as compared to her baseline. Results & Data Vital Signs (Past 12 Hours) Vital Signs Temp Pulse Resp BP BP Pulse Ox Pulse Ox 10/08/19 06:55 36.6 C 68 18 139/70 95 10/08/19 04:27 36.4 C L 69 18 136/70 91 10/08/19 00:07 36.5 C 73 16 167/90 H 94 10/08/19 00:02 94 Laboratory Results 10/08/19 10/08/19 10/08/19 Range/Units 09:09 09:09 00:12 WBC 5.16 (4.8-10.8) K/uL RBC 4.67 (4.2-5.4) M/uL Hgb 13.9 (12.0-16.0) g/dL Hct 40.7 (37-47) % MCV 87.2 (80-100) fL MCH 29.8 (25-34) pg MCHC 34.2 (32-36) g/dL RDW Std Deviation 45.8 (36.4-46.3) fL RDW Coeff of Juanjo 14.5 (11.5-14.5) % Plt Count 234 (130-400) K/uL MPV 10.3 (7.4-10.4) fL Immature Gran % (Auto) 0.2 % Neut % (Auto) 64.1 % Lymph % (Auto) 23.8 % [place] % (Auto) 7.2 % Eos % (Auto) 4.3 % Baso % (Auto) 0.4 % Immature Gran # (Auto) 0.01 (0.00-0.02) K/uL Neut # (Auto) 3.31 (1.4-6.5) K/uL Lymph # (Auto) 1.23 (1.2-3.4) K/uL [place] # (Auto) 0.37 (0.11-0.59) K/uL Eos # (Auto) 0.22 (0-0.5) K/uL Baso # (Auto) 0.02 (0-0.2) K/uL PT (9.0-12.0) Seconds INR (0.9-1.1) APTT (21.0-31.0) Seconds PTT Ratio Sodium 139 (136-145) mmol/L Potassium 3.4 L (3.5-5.1) mmol/L Chloride 105 (98-107) mmol/L Carbon Dioxide 32 (21-32) mmol/L Anion Gap 2.0 L (3-11) BUN 17 (7-18) mg/dl Creatinine 0.95 (0.6-1.2) mg/dl Est Cr Clr Drug Dosing 48.9 ml/min Est GFR ( Amer) 67.4 Est GFR (Non-Af Amer) 58.2 BUN/Creatinine Ratio 17.5 (10-20) Glucose 130 H (70-99) mg/dl POC Glucose (70-99) mg/dl Estimat Average Glucose mg/dl Hemoglobin A1c (4.5-5.6) % Calcium 9.4 (8.5-10.1) mg/dl Magnesium (1.8-2.4) mg/dl Total Bilirubin (0.2-1) mg/dl AST (15-37) U/L ALT (12-78) U/L Alkaline Phosphatase (45-117) U/L Troponin I < 0.015 < 0.015 (0-0.045) ng/ml Total Protein (6.4-8.2) gm/dl Albumin (3.4-5.0) gm/dl Globulin (2.5-4.0) gm/dl Albumin/Globulin Ratio (0.9-2) Triglycerides 169 H (0-150) mg/dl Cholesterol 164 (0-200) mg/dl LDL Cholesterol, Calc 69 mg/dl VLDL Cholesterol, Calc 34 mg/dl HDL Cholesterol 61 mg/dl Cholesterol/HDL Ratio 3 Urine Color Urine Appearance (Clear) Urine pH (4.5-7.5) Ur Specific [place] (1.000-1.030) Urine Protein (Negative) Urine Glucose (UA) (Negative) Urine Ketones (Negative) Urine Blood (Negative) Urine Nitrite (Negative) Urine Bilirubin (Negative) Urine Urobilinogen (Negative) Ur Leukocyte Esterase (Negative) Urine WBC (Auto) (0-5) /hpf Urine RBC (Auto) (0-4) /hpf U Hyaline Cast (Auto) (0-5) /lpf U Epithel Cells (Auto) (0-5) /lpf Urine Bacteria (Auto) (Negative) 10/08/19 10/07/19 10/07/19 Range/Units 00:12 20:05 19:45 WBC (4.8-10.8) K/uL RBC (4.2-5.4) M/uL Hgb (12.0-16.0) g/dL Hct (37-47) % MCV (80-100) fL MCH (25-34) pg MCHC (32-36) g/dL RDW Std Deviation (36.4-46.3) fL RDW Coeff of Juanjo (11.5-14.5) % Plt Count (130-400) K/uL MPV (7.4-10.4) fL Immature Gran % (Auto) % Neut % (Auto) % Lymph % (Auto) % [place] % (Auto) % Eos % (Auto) % Baso % (Auto) % Immature Gran # (Auto) (0.00-0.02) K/uL Neut # (Auto) (1.4-6.5) K/uL Lymph # (Auto) (1.2-3.4) K/uL [place] # (Auto) (0.11-0.59) K/uL Eos # (Auto) (0-0.5) K/uL Baso # (Auto) (0-0.2) K/uL PT (9.0-12.0) Seconds INR (0.9-1.1) APTT (21.0-31.0) Seconds PTT Ratio Sodium 139 (136-145) mmol/L Potassium 3.3 L (3.5-5.1) mmol/L Chloride 104 (98-107) mmol/L Carbon Dioxide 30 (21-32) mmol/L Anion Gap 5.0 (3-11) BUN 20 H (7-18) mg/dl Creatinine 0.98 (0.6-1.2) mg/dl Est Cr Clr Drug Dosing 48.4 ml/min Est GFR ( Amer) 64.9 Est GFR (Non-Af Amer) 56.0 BUN/Creatinine Ratio 20.8 H (10-20) Glucose 120 H (70-99) mg/dl POC Glucose (70-99) mg/dl Estimat Average Glucose 126 mg/dl Hemoglobin A1c 6.0 H (4.5-5.6) % Calcium 9.2 (8.5-10.1) mg/dl Magnesium 1.9 (1.8-2.4) mg/dl Total Bilirubin 0.5 (0.2-1) mg/dl AST 14 L (15-37) U/L ALT 19 (12-78) U/L Alkaline Phosphatase 75 (45-117) U/L Troponin I < 0.015 (0-0.045) ng/ml Total Protein 7.5 (6.4-8.2) gm/dl Albumin 3.3 L (3.4-5.0) gm/dl Globulin 4.2 H (2.5-4.0) gm/dl Albumin/Globulin Ratio 0.8 L (0.9-2) Triglycerides (0-150) mg/dl Cholesterol (0-200) mg/dl LDL Cholesterol, Calc mg/dl VLDL Cholesterol, Calc mg/dl HDL Cholesterol mg/dl Cholesterol/HDL Ratio Urine Color Yellow Urine Appearance Cloudy A (Clear) Urine pH 6.0 (4.5-7.5) Ur Specific [place] 1.007 (1.000-1.030) Urine Protein Negative (Negative) Urine Glucose (UA) Negative (Negative) Urine Ketones Negative (Negative) Urine Blood Negative (Negative) Urine Nitrite Negative (Negative) Urine Bilirubin Negative (Negative) Urine Urobilinogen Negative (Negative) Ur Leukocyte Esterase Trace H (Negative) Urine WBC (Auto) 5-10 H (0-5) /hpf Urine RBC (Auto) 0-4 (0-4) /hpf U Hyaline Cast (Auto) 0 (0-5) /lpf U Epithel Cells (Auto) 20-30 H (0-5) /lpf Urine Bacteria (Auto) Negative (Negative) 10/07/19 10/07/19 10/07/19 Range/Units 19:45 19:45 19:28 WBC 5.37 (4.8-10.8) K/uL RBC 4.49 (4.2-5.4) M/uL Hgb 13.3 (12.0-16.0) g/dL Hct 39.7 (37-47) % MCV 88.4 (80-100) fL MCH 29.6 (25-34) pg MCHC 33.5 (32-36) g/dL RDW Std Deviation 46.3 (36.4-46.3) fL RDW Coeff of Juanjo 14.3 (11.5-14.5) % Plt Count 263 (130-400) K/uL MPV 10.7 H (7.4-10.4) fL Immature Gran % (Auto) 0.0 % Neut % (Auto) 57.8 % Lymph % (Auto) 25.7 % [place] % (Auto) 11.4 % Eos % (Auto) 4.7 % Baso % (Auto) 0.4 % Immature Gran # (Auto) 0.00 (0.00-0.02) K/uL Neut # (Auto) 3.11 (1.4-6.5) K/uL Lymph # (Auto) 1.38 (1.2-3.4) K/uL [place] # (Auto) 0.61 H (0.11-0.59) K/uL Eos # (Auto) 0.25 (0-0.5) K/uL Baso # (Auto) 0.02 (0-0.2) K/uL PT 10.6 (9.0-12.0) Seconds INR 1.0 (0.9-1.1) APTT 25.9 (21.0-31.0) Seconds PTT Ratio 1.0 Sodium (136-145) mmol/L Potassium (3.5-5.1) mmol/L Chloride (98-107) mmol/L Carbon Dioxide (21-32) mmol/L Anion Gap (3-11) BUN (7-18) mg/dl Creatinine (0.6-1.2) mg/dl Est Cr Clr Drug Dosing ml/min Est GFR ( Amer) Est GFR (Non-Af Amer) BUN/Creatinine Ratio (10-20) Glucose (70-99) mg/dl POC Glucose 120 H (70-99) mg/dl Estimat Average Glucose mg/dl Hemoglobin A1c (4.5-5.6) % Calcium (8.5-10.1) mg/dl Magnesium (1.8-2.4) mg/dl Total Bilirubin (0.2-1) mg/dl AST (15-37) U/L ALT (12-78) U/L Alkaline Phosphatase (45-117) U/L Troponin I (0-0.045) ng/ml Total Protein (6.4-8.2) gm/dl Albumin (3.4-5.0) gm/dl Globulin (2.5-4.0) gm/dl Albumin/Globulin Ratio (0.9-2) Triglycerides (0-150) mg/dl Cholesterol (0-200) mg/dl LDL Cholesterol, Calc mg/dl VLDL Cholesterol, Calc mg/dl HDL Cholesterol mg/dl Cholesterol/HDL Ratio Urine Color Urine Appearance (Clear) Urine pH (4.5-7.5) Ur Specific [place] (1.000-1.030) Urine Protein (Negative) Urine Glucose (UA) (Negative) Urine Ketones (Negative) Urine Blood (Negative) Urine Nitrite (Negative) Urine Bilirubin (Negative) Urine Urobilinogen (Negative) Ur Leukocyte Esterase (Negative) Urine WBC (Auto) (0-5) /hpf Urine RBC (Auto) (0-4) /hpf U Hyaline Cast (Auto) (0-5) /lpf U Epithel Cells (Auto) (0-5) /lpf Urine Bacteria (Auto) (Negative) Diagnostic Findings 07 October 2019: CT head without contrast IMPRESSION: No acute intracranial abnormality. 07 October 2019: CT angiography of the head and neck IMPRESSION: 1. 50% luminal narrowing involves the origin of the left external carotid artery. 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 2. Moderate mixed plaque of the bilateral carotid bulbs results in less than 50% luminal narrowing of the bilateral internal carotid arteries. 3. No dissection, high-grade stenosis or proximal branch occlusion. 4. Partially imaged mild adenopathy of the upper mediastinum, nonspecific. 07 October 2019: MRI of the brain without contrast IMPRESSION: 1. Chronic small vessel ischemic change. No acute intracranial abnormality. 07 October 2019: CT chest without contrast IMPRESSION: 1. No pleural effusion or airspace consolidation typical for pneumonia. 2. Multilobar bilateral distribution of mosaic attenuation with groundglass densities suggests air-trapping with atelectasis. 3. Mildly prominent mediastinal lymph nodes, likely reactive. 08 October 2019: MRI of the cervical spine IMPRESSION: 1. There is a broad-based posterior disc bulge with a focal central disc protrusion at C4-C5 which abuts and significantly deform/flattens the cord. This is consistent with moderate to severe central canal narrowing. 2. There is also uppd-[id number] central canal narrowing at C5-C6 due to a broad-based posterior disc osteophyte complex. This also deforms anterior cord. 3. Multilevel bilateral neural foraminal narrowing as described above. 08 October 2019: IMPRESSION: 1. No acute findings within the lumbar spine by MRI. 2. Moderate multilevel facet arthrosis and mild multilevel degenerative disc disease. Mild to moderate central canal stenosis at L2-L3. Moderate multilevel neural foraminal stenosis. Medications Administered Apixaban (Eliquis) 5 mg PO BID [facility] Stop: 11/07/19 00:01 Last Admin: 10/08/19 09:37 Dose: 5 mg Documented by: [id number] Admin: 10/08/19 01:05 Dose: Not Given Documented by: [id number] Aspirin (Ecotrin Ectab) 81 mg PO QAM [facility] Stop: 11/07/19 08:59 Last Admin: 10/08/19 09:37 Dose: 81 mg Documented by: [id number] Ioversol (Optiray 320 125ml) 119 ml IV ONCE PRN PRN Reason: Interaction Checking Stop: 10/11/19 20:17 Last Admin: 10/07/19 20:20 Dose: 119 ml Documented by: [id number] Discontinued Medications Aspirin (Aspirin) 324 mg PO NOW STA Stop: 10/07/19 21:03 Last Admin: 10/07/19 21:17 Dose: 324 mg Documented by: [id number] ECG Rate (beats per minute): 63 Rhythm: normal sinus Findings: + 1st degree AV block Additional Comments: QTc 425 Resident Activity Tracking Resident Involvement: Resident Care Provided Care Provided: Adult Hospital Medicine
--- NOTE | 2019-10-08 13:58 | XCELERA ---
[id number] [id number]
--- NOTE | 2019-10-08 15:48 | Electrocardiogram Report ---
Test Reason : Blood Pressure : / mmHG Vent. Rate : 063 BPM Atrial Rate : 063 BPM P-R Int : 230 ms QRS Dur : 076 ms QT Int : 416 ms P-R-T Axes : 077 006 018 degrees QTc Int : 425 ms Sinus rhythm with 1st degree A-V block Low voltage QRS Borderline ECG When compared with ECG of 01-DEC-2018 07:49, No significant change was found Confirmed by Bud Joel ([id number]) on 10/08/2019 3:47:40 PM Referred By: NO PCP Confirmed By:Bud Joel
--- NOTE | 2019-10-08 15:55 | Electrocardiogram Report ---
Test Reason : Blood Pressure : / mmHG Vent. Rate : 080 BPM Atrial Rate : 080 BPM P-R Int : 268 ms QRS Dur : 082 ms QT Int : 412 ms P-R-T Axes : 055 019 038 degrees QTc Int : 475 ms Sinus rhythm with 1st degree A-V block Low voltage QRS Borderline ECG When compared with ECG of 07-OCT-2019 20:00, (unconfirmed) No significant change was found Confirmed by Bud Joel ([id number]) on 10/08/2019 3:54:35 PM Referred By: NO PCP Confirmed By:Bud Joel
[2019-10-08] MEDS ORDERED: CETIRIZINE HCL 10 MG TABLET PO SCH ×2 (16:15→21:00)
[2019-10-08] MEDS: METOPROLOL SUCC 50MG EXT REL TAB PO SCH (17:03)
[2019-10-08] MEDS ORDERED: ACETAMINOPHEN 500 MG TAB PO PRN (20:33)
[2019-10-08] MEDS ORDERED: Nursing to Pharmacy Communication ONE (20:36)
[2019-10-08] MEDS ORDERED: PRAVASTATIN SOD 20 MG TAB PO SCH (21:00)
--- NOTE | 2019-10-08 23:01 | Hospitalist Progress Note ---
Date of Service October 08, 2019 Assessment & Plan (1) Hypoglossal nerve palsy: Left sided. Appears isolated regarding brainstem pathology. 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 ESR, CRP, RF, anti-CCP, DEVANTE with reflex, Lyme, monospot reflex Stop HCTZ (2) Slurring of speech: Suspect from isolated hypoglossal nerve palsy (as above) (3) Cervical stenosis of spine: Unclear if this is causing anything acute. No radicular symptoms. She has chronic ambulatory dysfunction but no weakness on exam in legs. (4) Atrial fibrillation: Currently in SR Atrial fibrillation on chronic oral anticoagulation with Eliquis/hypertension. Continue metoprolol succinate 50 mg p.o. daily. resume Eliquis when passes dysphagia screening (5) Hypertension: Relative hypotension (6) Hypercholesterolemia: Has been on pravastatin 20 mg at bedtime. Should be changed to high-dose statin once able to swallow normally (7) Lumbar spinal stenosis: Difficulty with ambulation may be secondary to spinal stenosis. If brain work-up is negative in this regard, may need to have an MRI of her lumbar spine. (8) Stroke-like symptoms: (9) Angioedema: Since 2017. ?Secondary to eye drops used in opthamologist office. C1 esterase inhib not in chart therefore will get with AM labs. Struggling to link this diagnosis to above not see she has been on irbesartan previously. Continue cetirizine daily. (10) Right shoulder pain: ?came on with other symptoms. [place] XR routine. Examination consitent with shoulder impingement. ?underlying autoimmune > infection etiology. (11) Adenopathy: Admission and Anticipated Discharge Date Admission Date: October 07, 2019 Subjective Patient feels the same as when she came in. Discussed breakdown of her symptoms from chronic to acute (4 days ago). She feels her symptoms from 4 days ago started when she woke up with neck pain that did not radiate anywhere, still having this intermittently when she lies on it the wrong way which is what she thought it was due to previously. At the same time as this she noticed she was having more issues swallowing as she could not get the food from the left side of her mouth. Discussed with her daughter and still notes the patient is having speech difficulties still and no change in her ability to eat. Never had any facial droop but has been tired, sleepy, more unsteady since this has started. She also has some low back pain with known lumbar spinal stenosis for sometime but no weakness in her legs or foot drop. No radiating pains going down to her legs. She does note for the last month occasionally waking up and not being able to lift her right arm but this always recovers. Right shoulder pain she has put down to lifting shopping and unsure how long this has been going on Review of Systems Review of Systems: All systems reviewed & are unremarkable except as noted in HPI & below Physical Exam Constitutional: WD/WN, vitals as above + obese Eyes: PERRL, conjunctivae normal, anicteric sclerae Neck: trachea midline, no thyromegaly Respiratory: normal respiratory effort, lungs clear to auscultation Cardiovascular: RRR, no murmur, no edema Gastrointestinal (Abdomen): normal bowel sounds, soft, nontender, no hepatosplenomegaly Musculoskeletal: Right shoulder pain. Skin: angioedema on left antecubital fossa where tape was placed. Neurologic: moves all extremities, + focal motor deficit (isolate tongue deviation to left without muscle wasting) and awake; not confused Speech / Cognition: + abnormal speech (no problems with understanding or expression; change from baseline) Motor/Sensory: no tremor, no pronator drift and no sensory deficit Cranial Nerves: sense of smell intact, PERRL, EOM intact bilaterally, normal facial strength, able to rotate head bilaterally (mild neck pain present), able to elevate shoulders bilaterally, no nystagmus and symmetric palate elevation; + tongue not midline (deviation to left) Psychiatric: A+Ox3, euthymic affect Lymphatic: no cervical or axillary lymphadenopathy Results & Data ([facility]) Vital Signs (Past 12 Hours) Vital Signs Temp Pulse Pulse Resp BP BP Pulse Ox 10/08/19 20:00 65 10/08/19 19:02 36.7 C 70 20 179/85 H 93 10/08/19 15:16 36.9 C 74 18 174/93 H 96 10/08/19 11:03 36.5 C 68 19 141/91 H 92 PG Care Time/CCT Total # of Minutes Spent Total Time Spent with Patient: Total time spent is greater than 50% in coordination of care (as documented) at patient's floor/unit and/or counseling patient: Coding Level of Care Code 90407 Subseq Hosp Care Lvl 3 Diagnoses Hypoglossal nerve palsy G52.3 Slurring of speech R47.81 Cervical stenosis of spine M48.02 Atrial fibrillation I48.0 Atrial fibrillation type: paroxysmal Hypertension I10 Hypertension type: essential hypertension Hypercholesterolemia E78.00 Lumbar spinal stenosis M48.061 Neurogenic claudication status: without neurogenic claudication Stroke-like symptoms R29.90 Angioedema T78.3XXD Encounter type: subsequent encounter Right shoulder pain M25.511 Chronicity: acute Adenopathy R59.1 (1) Lumbar spinal stenosis Neurogenic claudication status: without neurogenic claudication Qualified Code(s): M48.061 - Spinal stenosis, lumbar region without neurogenic claudication (2) Angioedema Encounter type: subsequent encounter Qualified Code(s): T78.3XXD - Angioneurotic edema, subsequent encounter (3) Atrial fibrillation Atrial fibrillation type: paroxysmal Qualified Code(s): I48.0 - Paroxysmal atrial fibrillation (4) Right shoulder pain Chronicity: acute Qualified Code(s): M25.511 - Pain in right shoulder (5) Hypertension Hypertension type: essential hypertension Qualified Code(s): I10 - Essential (primary) hypertension
[2019-10-09 06:03] LABS: Basophils # (auto) 0.02 K/uL (0-0.2); Basophils % (auto) 0.4 %; Eosinophils # (auto) 0.27 K/uL (0-0.5); Eosinophils % (auto) 5.8 %; Hematocrit (blood only) 39.1 % (37-47); Hemoglobin 13.1 g/dL (12.0-16.0); Immature Granulocytes # (auto) 0.01 K/uL (0.00-0.02); Immature Granulocytes % (auto) 0.2 %; Lymphocytes # (auto) 1.36 K/uL (1.2-3.4); Lymphocytes % (auto) 29.2 %; Mean Corpuscular Hemoglobin 29.5 pg (25-34); Mean Corpuscular Hgb Conc 33.5 g/dL (32-36); Mean Corpuscular Volume 88.1 fL (80-100); Mean Platelet Volume 10.4 fL (7.4-10.4); Monocytes # (auto) 0.56 K/uL (0.11-0.59); Neutrophils # (auto) 2.43 K/uL (1.4-6.5); Neutrophils % (auto) 52.4 %; Platelet Count 233 K/uL (130-400); RDW Coefficient of Variation 14.3 % (11.5-14.5); RDW Standard Deviation 46.4 fL (36.4-46.3); Red Blood Count 4.44 M/uL (4.2-5.4); White Blood Count 4.65 K/uL (4.8-10.8)
[2019-10-09 06:15] LABS: INR 1.1 (0.9-1.1); Partial Thromboplastin Time 28.9 Seconds (21.0-31.0); Prothrombin Time 11.4 Seconds (9.0-12.0)
[2019-10-09 06:33] LABS: BUN Creatinine Ratio 21.1 (10-20); Calcium 9.1 mg/dl (8.5-10.1); Est GFR (Non-African American) 61.3; Magnesium 2.1 mg/dl (1.8-2.4); Potassium 3.4 mmol/L (3.5-5.1)
[2019-10-09 06:41] LABS: Monotest Negative (Negative)
[2019-10-09 06:52] LABS: Albumin Globulin Ratio 0.8 (0.9-2); C Reactive Protein 1.47 mg/dl (0-0.29); Phosphorus 3.1 mg/dl (2.5-4.9)
[2019-10-09 07:27] LABS: Lyme Ab IgG w/WB Rflx Negative (Negative); Lyme Ab IgM w/WB Rflx Negative (Negative)
[2019-10-09] MEDS: METOPROLOL SUCC 50MG EXT REL TAB PO SCH (08:14)
[2019-10-09] MEDS: ASPIRIN 81 MG ECTAB PO SCH (08:14)
[2019-10-09] MEDS: APIXABAN 5 MG TABLET PO SCH (08:14)
[2019-10-09] MEDS ORDERED: Nursing to Pharmacy Communication ONE (08:26)
[2019-10-09] MEDS ORDERED: POTASSIUM CHLORIDE 20 MEQ TABCR PO STA (08:30)
--- NOTE | 2019-10-09 08:47 | Neurology Progress Note ---
Date of Service October 09, 2019 Assessment & Plan (1) Hypoglossal nerve palsy: (2) Cervical stenosis of spine: (3) Slurring of speech: (4) Dysphagia: Patient has weakness of her tongue bilaterally but towards the left greater than towards the right. Palate moves well and she can actually swallow without choking. I think her speech is related to her tongue issue and she does not have any other obvious aphasia or dysarthria The etiology of the tongue weakness is not readily apparent. A small brainstem stroke could do this but there was no evidence on MRI. Upper cervical (C1-2 level) abnormalities could create tongue weakness but there is no evidence for upper cervical spine problems from C1 through C3. This is not consistent with a TIA. Interestingly, the patient has an elevated CRP and sed rate. There is an ongoing evaluation for inflammatory/infectious disease. Patient does have significant spinal stenosis and cord flattening at C4-5. She does have some gait disturbance and neck pain but does not have any significant upper motor neuron findings otherwise. She has no reflexes and a polyneuropathy might mask upper motor neuron signs but she clearly has downgoing toes bilaterally. Recommendations: 1. I spoke with Dr. Venkat Marino, orthopedic spine surgeon, regarding this case and he is going to review the films and see the patient. He agreed with me that a C4-5 lesion should not affect the tongue in any way. 2. Continue with speech therapy recommendations regarding her speech and swallowing. 3. Consider physical and occupational therapy evaluations for gait and limb evaluation and treatment 4. Consider 3 T MRI as an outpatient to further evaluate her brain/brainstem. 5. Follow-up with inflammatory evaluation. Overall, I spent a total of 35 minutes with this case including review of records, review of MRI films, direct evaluation the patient at bedside, discussion of the case with the patient at bedside, Dr. Marino orthopedic spine surgeon, and Dr. Horn including differential diagnosis and treatment options. Subjective Patient feels about the same today as yesterday. Her walking is slow and tentative but otherwise stable. She has no headache but does have neck pain and limited range of motion in her neck. She feels that her speech and swallowing is about the same as yesterday and has no new problems. She feels that her arms and legs have good strength and sensation. She has no incontinence of urine. CBC was unremarkable. Sed rate was elevated at 54. C reactive protein was elevated. Lyme antibody titer was negative. Other tests are pending. Blood pressure is 148/76. Echocardiogram was unremarkable. Speech therapy evaluated the patient yesterday and noted some problems clearing food with her tongue weakness but no other specific dysarthria or aphasia. She was not choking and could swallowing use a straw well. Physical Exam Physical Exam: She is awake and alert. I do not detect any aphasia or dysarthria. Her tongue is weak bilaterally left greater than right side as before. Extraocular eye muscles are intact without nystagmus. Motor strength seems symmetrical in the limbs and there are no abnormal involuntary movements. Gait is narrow based and cautious/slow but otherwise stable on her own. Results & Data Vital Signs (Past 12 Hours) Vital Signs Temp Pulse Pulse Resp BP BP Pulse Ox 10/09/19 08:04 36.9 C 65 16 148/76 H 93 10/09/19 08:00 68 10/09/19 03:55 36.5 C 63 18 136/72 93 10/09/19 02:25 68 10/09/19 00:46 36.6 C 63 18 135/64 93 PG Care Time/CCT Total # of Minutes Spent Total Time Spent with Patient: Total time spent is greater than 50% in coordination of care (as documented) at patient's floor/unit and/or counseling patient: Coding Level of Care Code 80429 Subseq Hosp Care Lvl 3 Diagnoses Hypoglossal nerve palsy G52.3 Cervical stenosis of spine M48.02 Slurring of speech R47.81 Dysphagia R13.10 Time Spent (min) 35
[2019-10-09] MEDS ORDERED: CETIRIZINE HCL 10 MG TABLET PO SCH (09:00)
--- NOTE | 2019-10-09 10:04 | XRay Report ---
XR shoulder RT min 2V routine CLINICAL HISTORY: 74 years-old Female presenting with right superior shoulder pain ?#/effusion. TECHNIQUE: Internal rotation, external rotation, and Grashey views of the right shoulder were obtaine d. COMPARISON: None. FINDINGS: Acromioclavicular and glenohumeral joints congruent. Moderate hypertrophic degenerative changes of th e AC joint with moderate inferior bony spurring. No joint space loss or significant degenerative hobbs ge at the glenohumeral joint. No acute fracture or malalignment. No deformity or subluxation of the h umeral head. Degenerative changes of the spine. IMPRESSION: 1. Moderate degenerative changes of the AC joint with suspected chronic rotator cuff impingement due to inferior bony spurring. 2. No acute osseous injury. 3. Extremely limited radiographic sensitivity for effusion. ACT 112: Negative or not required by law. Electronically signed by: George Tineo M.D. 10/09/2019 10:03 AM
[2019-10-09 11:28] LABS: Folate (Folic Acid) 22.42 ng/ml (>5.38)
[2019-10-09] MEDS ORDERED: CHOLECALCIFEROL 1,000 UNITS 25 MCG TAB PO SCH (11:30)
[2019-10-09] MEDS ORDERED: STROKE PATIENT DISCHARGE STA (12:09)
--- NOTE | 2019-10-09 12:12 | Discharge Summary ---
Date of Service October 09, 2019 Admission HPI Per Admitting Provider The patient is a 74-year-old female with a past medical history including atrial fibrillation, hypercholesterolemia, lumbar spinal stenosis, chronic back pain, chronic anticoagulation with Eliquis and hypertension. She presents to the emergency department, with her granddaughter and daughter in the room, with complaint of right shoulder pain for past few weeks. 4 days ago she had developed slurred speech which has somewhat improved, with difficulty with swallowing, left posterior occipital area pain, and occasional imbalance where she feels her self drifting to the left she has continued to have low back disco mfort, but denies any bowel or bladder incontinence or any radicular type symptoms into the legs. She lives at home with her daughter. Principal Diagnosis Left hypoglossal nerve palsy Severe cervical spinal stenosis Rotator cuff impingement Chronic intermittent Angioedema Bilateral asymptomatic carotid artery stenosis 3mm left external carotid aneurysm Discharge Exam Constitutional WD/WN, vitals as above + obese Eyes PERRL, conjunctivae normal, anicteric sclerae Respiratory normal respiratory effort, lungs clear to auscultation Cardiovascular RRR, no murmur, no edema Gastrointestinal (Abdomen) normal bowel sounds, soft, nontender, no hepatosplenomegaly Musculoskeletal Right shoulder without effusion. Good ROM. Pain on palpation over superior GH joint space. Lorenzo-Minesh strongly positive. Skin left antecubital fossa angioedema, similar to yesterday. Neurologic moves all extremities, + focal motor deficit (isolate tongue deviation to left without muscle wasting) and awake; not confused Speech / Cognition: + abnormal speech (no problems with understanding or expression; change from baseline) Motor/Sensory: no tremor and no pronator drift Cranial Nerves: + tongue not midline (deviation to left) Psychiatric A+Ox3, euthymic affect Lymphatic no cervical or axillary lymphadenopathy Discharge Data Allergies Allergy/AdvReac Type Severity Reaction Status Date / Time moxifloxacin AdvReac Intermediate Confusion Verified 10/07/19 20:38 irbesartan [From Avapro] AdvReac Unknown Verified 10/07/19 20:37 Consultations 10/07/19 21:02 ED Decision to Admit Stat 10/08/19 00:02 Consult Case Management - Discharge Planning Routine Consult Case Management - Discharge Planning Routine Consult Neurology Routine 10/08/19 22:55 Consult Orthopedic Surgery Routine Ordered Studies 10/07/19 19:07 CT head/brain wo con Stat 10/07/19 20:14 CT angio head w con Stat CT angio neck with con Stat 10/07/19 21:02 MR brain wo con Urgent 10/07/19 21:15 CT chest wo con Stat 10/08/19 00:02 MR cervical spine wo con Urgent 10/08/19 03:25 MR lumbar spine wo con Urgent 10/09/19 09:22 FL lumbar puncture diagnostic Routine Hospital Course (1) Hypoglossal nerve palsy: Shahla Castillo is a 74 year old admitted to [facility] from October 06 to 2019 due to acute onset tiredness, tongue weakness, slurred speech and neck pain. Subsequent workup was negative for stroke. She was assessed by neurology (Dr Lopez) and reviewed images with radiology and possibly represents a small stroke not seen on MRI but more likely is an isolated hypoglossal nerve palsy more distal to the brainstem. The cause of this is unclear at present but given other symptoms of neck pain and generalized fatigue suspect a meningeal, autoimmune or infectious cause. Ideally she would have had a lumbar puncture however this could not be performed while she was on Eliquis therefore this will be arranged as an outpatient next week and she is to stop Eliquis at this time. She is to call radiology on Friday on [phone] (option 6) to arrange a time for this. She takes prednisone PRN for angioedema but was advised to try and avoid this and peanuts prior to the lumbar puncture otherwise this may obscure her results. She was medically stable for discharge and passed speech evaluation for east to chew diet therefore will be closely followed up as outpatient for further workup. Possible stroke (not seen on MRI) - no aspirin due to need for lumbar puncture (initial started this admission), change statin to high intensity. Follow up with Dr Lopez as outpatient for possible 3T MRI. Possible viral etiology - EBV panel pending at time of discharge. Possible autoimmune disease - DEVANTE screen , rheumatoid factor. Sister with ?rheumatoid arthritis. Possible cause of isolated CN XII palsy. HCTZ switched to amlodipine due to possible drug-induced lupus. Consider referral to rheumatology if concern remains for autoimmune etiology. Likely she would benefit from prednisone but that would change her diagnostic lumbar puncture so not recommended at present. ESR/CRP mildly elevated. Left 3mm external carotid artery aneurysm - not suspected to be cause of hypoglossal nerve palsy given size as discussed with Dr Lopez and Dr Tineo. Bilateral carotid artery disease - statin was also switched to rosuvastatin due to possibility of stroke and bilateral asymptomatic carotid artery disease. No ASA was started due to upcoming lumbar puncture and stroke remains low likelihood. Severe cervical spine stenosis - This was discussed with with Dr Marino and Dr Lopez and all in agreement this is not the cause of her left isolated hypoglossal nerve palsy. However she is having more subacute symptoms of right arm weakness and feeling off balance which may be related. Symptoms progressing over the last month. She will follow up with Dr Marino next week in outpatient clinic. Subacute right shoulder pain - Suspect rotator cuff impingement / arthritis based on XR and exam findings. Less likely from cervical spinal stenosis. Not suspected to be related to presenting complaint of isolated left CN XII palsy unless lupus is confirmed to be the cause of this. Angioedema - chronic, intermittent. C1 esterase def. labs pending at time of discharge. Test performed due to association with lupus. Recommend she treats with anti-histamines alone at this time. Abnormal CT chest - non specific adenopathy and multilobar bilateral distribution of mosaic attenuation with groundglass densities - suspect atelectasis but non-specific for viral or autoimmune process as above. Kind regards, Dr José Horn (2) Slurring of speech: (3) Cervical stenosis of spine: (4) Atrial fibrillation: (5) Hypertension: (6) Hypercholesterolemia: (7) Lumbar spinal stenosis: (8) Stroke-like symptoms: (9) Angioedema: (10) Right shoulder pain: (11) Adenopathy: Total Time Total Time Spent Total Time Spent (In Minutes): 105 Total Time Includes: Examination of the Patient, Discharge Planning, Medication Reconciliation and Communication With Other Providers (Dr Lopez, Dr Marino, Radiology, Dr Tineo) Discharge Plan Discharge Items Patient Disposition: Home - Self-Care Reason For Visit: STROKE-LIKE SYMPTOMS Discharge Diagnosis: Left hypoglossal nerve palsy (acute diagnosis, unclear cause at this time) Severe cervical spinal stenosis (subacute symptoms related to this) Rotator cuff tendonitis (subacute) Angioedema (chronic) Carotid artery stenosis (asymptomatic) Very small external carotid aneurysm (asymptomatic) Activity: As commented below Lifting: None and No more than 5 pounds Bathing: No limitations Exercise/Sports: None Driving/Machine Use: avoid driving until follow up with Dr Lopez and Dr Marino Weightbearing: Full weightbearing Non-emergency contact: Primary Care Provider and Neurologist Call non-emergency contact if: you have any medication questions and your symptoms worsen Follow-up/Referrals: Siva Nogueira MD [Primary Care Provider] - 10/18/19 3:00 pm (in the next 1-2 weeks. F/U appointment Jocelyn Patel on October 18, 2019 at 3:00 p.m.) Jovan Lopez III, MD [Physician] - (within the next 2 weeks. Appointment to be arranged. Dr. Lopez's office will call with F/U appointment. ) Cj Marino DO [Surgeon] - 10/18/19 1:30 pm (within the next week. Appointment to be arranged. Appointment with Jg Chavarria on Friday October 18, 2019 at 1:30 p.m.--please arrive at 1:00 p.m., bring a med list and insurance cards) Diet: Regular Diet Texture: Easy to Chew Ambulatory Orders: [place] lumbar puncture diagnostic (Routine) Timeframe: [id number] Location: Determined by Patient Ordered By: José Horn FL lumbar puncture diagnostic (Routine) Timeframe: 1 Week Location: Determined by Patient Ordered By: José Horn [facility] Attending Provider Instructions: You were admitted to [facility] from October 06 to 2019 due to acute onset tiredness, tongue weakness, slurred speech and neck pain. Subsequent workup was negative for stroke. You were assessed by neurology (Dr Lopez) and possibly represents a small stroke not seen on MRI but more likely is an isolated hypoglossal nerve palsy more distal to the brainstem. The cause of this is unclear at present but given your other symptoms suspect a meningeal, autoimmune or infectious cause. Multiple blood tests are pending on discharge and recommend following up with your primary care physician with possible referral to rheumatology if required. Recommend asking family about any history of autoimmune conditions and any confirmatory testing they had done to aid with your diagnosis. Please also follow up with Dr Lopez (appointment to be arranged) for additional testing if necessary. Since hydrochlorothiazide has been linked to lupus like illness; this medication has been stopped and switched for another blood pressure medication amlodipine. Please follow up with your primary care provider for ongoing prescriptions. Your statin has also been switched to a more high intensity statin due to carotid artery plaque disease and possibility of a stroke. Recommend repeat a carotid ultrasound in approximately 1 year to monitor the carotid artery plaque disease. We have ordered an outpatient lumbar puncture for next week. This could not be done as an inpatient due to your Eliquis use. Please call radiology on Friday on [phone] (option 6) to arrange a time for this. Please stop your Eliquis now as you cannot be on this medication for a lumbar puncture due to increased risk of bleeding. You will be advised when to restart this after the lumbar puncture. Results will go to Dr Lopez to follow up. Please avoid prednisone or peanuts prior to this test if possible. Avoid all over the counter pain medication other than acetaminophen alone. In addition you were noted to have severe cervical spine stenosis. On discussion with Dr Marino (orthopedic spine surgeon) and Dr Lopez we do not believe this is the cause of you acute tongue symptoms (hypoglossal nerve palsy) but suspect this is related to your right shoulder pain and intermittent arm weakness and possibly neck pain. Appointment will be arranged to follow up in the next week as although this is not suspect to cause acute symptoms it appears to be progressing over the last month. If your symptoms become more severe; especially with fever, urine/bowel incontinence, sudden leg weakness or difficulty breathing - please return to the ER immediately. Kind regards, Dr José Horn Pending Studies at Discharge: Yes (Multiple autoimmune labs pending) Stand-Alone Forms: [employer], Smoking Cessation Medications and DC Order Prescriptions: New rosuvastatin 20 mg tablet 20 mg PO HS Qty: 30 RF: 0 amlodipine 5 mg tablet 5 mg PO DAILY Qty: 30 RF: 0 Continued metoprolol succinate 50 mg tablet extended release 24 hr 50 mg PO QAM Qty: 30 RF: 11 cholecalciferol (vitamin D3) [Vitamin D3] 1,000 unit capsule 2,000 units PO QDL RF: 0 potassium chloride [Klor-Con M10] 10 mEq tablet,ER particles/crystals 30 meq PO QAM Qty: 90 RF: 3 prednisone 20 mg tablet 20 mg PO DAILY PRN (Reason: facial swelling) Qty: 20 RF: 0 Eliquis 5 mg Tablet 5 mg PO BID RF: 0 cetirizine 10 mg Tablet 5 mg PO DAILY RF: 0 Discontinued pravastatin 20 mg tablet 20 mg PO HS Qty: 90 RF: 3 hydrochlorothiazide 25 mg tablet 25 mg PO DAILY Qty: 90 RF: 3 Discharge Orders: Discharge Order (Routine); Ordered 10/09/19 Ordered By: José Clemente/Other Patient Handouts: A1C Admission Data Admit Date/Time: 10/07/19 22:19 Attending Provider: José Horn Admit Provider: Derik Roe Primary Care Provider: Siva Nogueira Other Providers: Derik Roe ; Javon Reyes ; Cj Marino Other Interventions: Discharge Summary Assessment (RN) Last Done: 10/09/19 12:22 DC Date/Time DO NOT enter until pt leaves facility: 10/09/19 13:31 Coding Level of Care Code D/C Day Management >30 mins Diagnoses Hypoglossal nerve palsy G52.3 Slurring of speech R47.81 Cervical stenosis of spine M48.02 Atrial fibrillation I48.0 Atrial fibrillation type: paroxysmal Hypertension I10 Hypertension type: essential hypertension Hypercholesterolemia E78.00 Lumbar spinal stenosis M48.061 Stroke-like symptoms R29.90 Angioedema T78.3XXD Encounter type: subsequent encounter Right shoulder pain M25.511 Adenopathy R59.1
[2019-10-11 17:50] LABS: EBV Virus Capsid Ag IgG Ab >750.00 U/mL; Epstein Barr Virus Early Ag Ab <9.00 U/mL
--- NOTE | 2019-10-12 11:19 | Orthopedic Consultation ---
Date of Consultation October 12, 2019 Assessment & Plan (1) Hypoglossal nerve palsy: Patient was not able to be seen as she was discharged prior to my availability. However I did speak with her attending physician and we will follow her up on an outpatient basis. Present on Admission?: Yes History of Present Illness Attending Physician: José Horn MD Allergies Allergy/AdvReac Type Severity Reaction Status Date / Time moxifloxacin AdvReac Intermediate Confusion Verified 10/07/19 20:38 irbesartan [From Avapro] AdvReac Unknown Verified 10/07/19 20:37 Home Medications Home Medications Medication Instructions Recorded Confirmed Type Eliquis 5 mg PO BID 11/25/18 10/07/19 History metoprolol succinate 50 mg 50 mg PO QAM #30 tab 03/16/19 10/07/19 Rx tablet,extended release 24 hr cholecalciferol (vitamin D3) 25 2,000 units PO QDL cap 04/20/19 10/07/19 History mcg (1,000 unit) capsule prednisone 20 mg tablet 20 mg PO DAILY PRN #20 tab 05/19/19 10/07/19 Rx potassium chloride 10 mEq 30 meq PO QAM #90 tab 07/08/19 10/07/19 Rx tablet,extended release(part/cryst) cetirizine 5 mg PO DAILY 10/07/19 10/07/19 History amlodipine 5 mg PO DAILY #30 tab 10/09/19 Rx rosuvastatin 20 mg PO HS #30 tab 10/09/19 Rx Patient History Medical History Atrial fibrillation Hyperlipidemia Hypertension Kidney stones Lumbar spinal stenosis Morbid obesity Surgical History History of arthroscopy RIGHT KNEE History of cataract surgery BILATERAL History of colonoscopy Family History Brother Family hx of colon cancer Mother Family history of diabetes mellitus Social History Preferred Language: Kyrgyz Communication Ability: Effective Babbitter Required: No Beliefs That Will Affect Care: None Current Living Situation: Family Current Living Situation Comment: dtr Feels Safe at Home: Yes Smoking Status: Never smoker Second Hand Exposure: No ; Hx Alcohol Use: No Hx Substance Use: No
== END 2019-10-09 13:31 | disposition home or self-care (01) | DRG 74 ==
LOC: ED 18:43 → 2S 22:19 → SUATTDRO 22:19 → 2S 22:58

== ENCOUNTER 2021-09-23 15:26 | Inpatient (IN) ==
[2021-09-23] MEDS ORDERED: ALBUT/IPRATROP 3MG/0.5MG NEB 3 ML VIAL INH STA (15:39)
[2021-09-23] MEDS ORDERED: methylPREDNISolone 125 MG/2 ML VIAL IV STA (15:39)
--- NOTE | 2021-09-23 15:44 | Emergency Department Note ---
History of Present Illness General Chief complaint: Shortness of Breath/Dyspnea Stated complaint: SOB Time Seen by Provider: 09/23/21 15:31 Source: patient Mode of arrival: EMS History of Present Illness Provider complaint: Shortness of breath Onset (ago): day(s) Location: chest Pain Consistency: + constant Quality: + other (Short of breath) Relieved By: + medication (Nebulizer in ambulance) Associated symptoms: + cough and + shortness of breath; no chest pain, no fever/chills or no nausea/vomiting This is a 76-year-old female who presents with shortness of breath since yesterday. The patient developed cold symptoms including sore throat cough and sneezing last night. She then developed shortness of breath. It got worse today and so she called the ambulance. She was given a DuoNeb in the ambulance and she does feel much better. She was noted to have an O2 saturation in the high 80s by EMS. She denies any chest discomfort or pain. She has had no fevers. She does state that she had COVID-19 3 weeks ago but fully recovered. She then developed a cough last night. She denies any body aches, loss of taste or smell, diarrhea, abdominal pain, vomiting or urinary symptoms. She denies any leg swelling or pain. She did have her vaccination for COVID-19 as well as her booster shot. She is not immunized for influenza. She denies a prior history of COPD or asthma or cigarette smoking. Home Medications Medication Instructions Recorded Confirmed Type cholecalciferol (vitamin D3) 25 3,000 unit PO QDL cap 12/04/20 09/23/21 History mcg (1,000 unit) capsule (Vitamin D3) cetirizine 10 mg tablet 10 mg PO DAILY tab 03/20/21 09/23/21 History rosuvastatin 20 mg tablet 20 mg PO HS #90 tab 03/20/21 09/23/21 Rx triamterene 37.5 1 cap PO QAM #90 cap 03/20/21 09/23/21 Rx mg-hydrochlorothiazide 25 mg capsule gabapentin 100 mg capsule 100 mg PO TID #90 cap 05/03/21 09/23/21 Rx apixaban 5 mg tablet (Eliquis) 5 mg PO BID #180 tab 05/21/21 09/23/21 Rx potassium chloride 10 mEq 30 meq PO QAM #90 tab 11/10/21 02/20/22 Rx tablet,extended release(part/cryst) (Klor-Con M) albuterol sulfate 90 mcg/actuation 2 puff INHALATION QID PRN #8.5 g 08/31/21 09/23/21 Rx aerosol inhaler (ProAir HFA) metoprolol succinate 50 mg 50 mg PO QAM 09/23/21 09/23/21 History tablet,extended release 24 hr Allergies Allergy/AdvReac Type Severity Reaction Status Date / Time moxifloxacin AdvReac Intermediate Confusion Verified 09/23/21 16:05 irbesartan [From Avapro] AdvReac Unknown Unknown Verified 09/23/21 16:05 coban Allergy Intermediate Rash Uncoded 09/23/21 16:05 Past Med/Surg History Medical History Acute hyperglycemia Aneurysm of external carotid artery Angioedema Atrial fibrillation Erythema migrans (Lyme disease) Facial cellulitis Ganglion cyst of both wrists Hyperlipidemia Hypertension Intertrigo Kidney stones Lumbar spinal stenosis Migraine headache Morbid obesity Symptomatic PVCs Tremor Vitamin D deficiency Surgical History History of arthroscopy RIGHT KNEE History of cataract surgery BILATERAL History of colonoscopy Family History Brother Family hx of colon cancer Colorectal cancer Prostate cancer Mother Family history of diabetes mellitus Sister Breast cancer Father Coronary heart disease Denies family history of Ovarian cancer Myocardial infarction Social History Smoking Status: Never smoker Second Hand Exposure: No; Hx Alcohol Use: No Hx Substance Use: No Preferred Language: Mohawk Communication Ability: Effective Visual Impairment: No Limitations Hearing Ability: Normal Adult Parole Officer Required: No Beliefs That Will Affect Care: None marital status: single Current Living Situation: Family Current Living Situation Comment: daughter lives with her current occupational status: retired current occupation: retired from [employer] Feels Safe at Home: Yes Childhood Exposure to Second-Hand Smoke: Yes Diet Comment: trying to watch what she is eating caffeine: Yes Dental Care, Regularly: No Physical Activity Frequency: Does not Exercise Seatbelt Use: always Sunscreen Use: No Assistive Devices: Cane Review of Systems See HPI for pertinent positives & negatives. and A total of 10 systems reviewed and were otherwise negative Physical Exam Vital Signs Vital Signs - 24 hr 09/23/21 15:31 09/23/21 15:39 09/23/21 15:55 Pulse Rate 102 H Pulse Rate [Right Finger] 96 H Pulse Rhythm [Right Finger] Pulse Strength [Right Finger] Respiratory Rate 22 22 26 H Respiratory Effort / Characteristics Non-Labored Spontaneous Moaning Respiratory Depth Normal Respiratory Pattern Regular Blood Pressure 155/87 H Blood Pressure [Right Arm] Blood Pressure Mean 109 Blood Pressure Mean [Right Arm] Pulse Oximetry 94 93 93 Oxygen Delivery Method Room Air Room Air Room Air Oxygen Flow Rate Sepsis Recent Fever Within 48 Hours No Sepsis New/Unexplained Change in Mental Status No Sepsis Action Taken by Nursing Physician Notified Oxygen Flow Rate - Titration Pulse Oximetry Post Tiitration 09/23/21 16:00 09/23/21 16:30 09/23/21 16:57 Pulse Rate 98 H 113 H Pulse Rate [Right Finger] Pulse Rhythm [Right Finger] Pulse Strength [Right Finger] Respiratory Rate 22 22 Respiratory Effort / Characteristics Respiratory Depth Respiratory Pattern Blood Pressure 128/70 77/65 L Blood Pressure [Right Arm] Blood Pressure Mean 89 69 Blood Pressure Mean [Right Arm] Pulse Oximetry 99 99 Oxygen Delivery Method Oxygen Flow Rate Sepsis Recent Fever Within 48 Hours Sepsis New/Unexplained Change in Mental Status Sepsis Action Taken by Nursing Oxygen Flow Rate - Titration Pulse Oximetry Post Tiitration 09/23/21 17:00 09/23/21 17:10 09/23/21 17:15 Pulse Rate Pulse Rate [Right Finger] 136 H 130 H Pulse Rhythm [Right Finger] Irregular Pulse Strength [Right Finger] Respiratory Rate 22 22 Respiratory Effort / Characteristics Non-Labored Non-Labored Respiratory Depth Normal Normal Respiratory Pattern Blood Pressure 112/63 Blood Pressure [Right Arm] 112/63 Blood Pressure Mean 79 Blood Pressure Mean [Right Arm] 79 Pulse Oximetry 98 93 Oxygen Delivery Method Room Air Room Air Oxygen Flow Rate Sepsis Recent Fever Within 48 Hours Sepsis New/Unexplained Change in Mental Status Sepsis Action Taken by Nursing Oxygen Flow Rate - Titration Pulse Oximetry Post Tiitration 09/23/21 17:30 09/23/21 17:36 09/23/21 17:45 Pulse Rate Pulse Rate [Right Finger] 130 H 122 H Pulse Rhythm [Right Finger] Pulse Strength [Right Finger] Respiratory Rate 22 Respiratory Effort / Characteristics Non-Labored Non-Labored Spontaneous SOB on Exertion Respiratory Depth Normal Normal Respiratory Pattern Tachypnea Blood Pressure Blood Pressure [Right Arm] Blood Pressure Mean Blood Pressure Mean [Right Arm] Pulse Oximetry 93 90 Oxygen Delivery Method Room Air Room Air Oxygen Flow Rate Sepsis Recent Fever Within 48 Hours Sepsis New/Unexplained Change in Mental Status Sepsis Action Taken by Nursing Oxygen Flow Rate - Titration 2 Pulse Oximetry Post Tiitration 96 09/23/21 18:00 Pulse Rate Pulse Rate [Right Finger] 120 H Pulse Rhythm [Right Finger] Regular Pulse Strength [Right Finger] Normal Respiratory Rate 22 Respiratory Effort / Characteristics Non-Labored Respiratory Depth Normal Respiratory Pattern Blood Pressure Blood Pressure [Right Arm] 115/64 Blood Pressure Mean Blood Pressure Mean [Right Arm] 81 Pulse Oximetry 95 Oxygen Delivery Method Nasal Cannula Oxygen Flow Rate 2 Sepsis Recent Fever Within 48 Hours Sepsis New/Unexplained Change in Mental Status Sepsis Action Taken by Nursing Oxygen Flow Rate - Titration Pulse Oximetry Post Tiitration Constitutional: Vital signs reviewed. O2 saturation on room air is 94%. Eyes: Pupils are equal round reactive to light. Conjunctiva are noninjected. ENT: Pharynx is clear without erythema or exudate. Mucous membranes are moist. Neck supple without meningeal signs. Respiratory: Wheezing bilaterally. Breath sounds are equal bilaterally. Cardiovascular: Tachycardic. Heart rate 101. GI: Soft, nondistended and nontender. Bowel sounds are present. Musculoskeletal: Very mild pitting edema to both lower extremities. No lower extremity tenderness. Integumentary: No cyanosis. or jaundice. Neurological: The patient is awake and alert. No focal deficits. Psychiatric: Normal affect. Not anxious appearing. Course Administered Medications Discontinued Medications Albuterol (Albut/Ipratrop 3mg/0.5mg Neb 3 Ml Vial) 12 ml INH ONE STA Stop: 09/23/21 15:40 Last Admin: 09/23/21 15:54 Dose: 12 ml Documented by: [id number] Furosemide (Furosemide Inj 20 Mg/2 Ml Vial) 20 mg IV ONE ONE Stop: 09/23/21 16:58 Last Admin: 09/23/21 17:18 Dose: 20 mg Documented by: [id number] Methylprednisolone (Methylprednisolone 125 Mg/2 Ml Vial) 125 mg IV NOW STA Stop: 09/23/21 15:40 Last Admin: 09/23/21 15:47 Dose: 125 mg Documented by: [id number] Medical Decision Making Differential Diagnosis Bronchitis, pneumonia, COVID-19, COPD, hypoxemia, CHF Medical Records Attestation: I reviewed the patient's medical records. I did perform a limited focused review of portions of the patient's old chart on the electronic medical record. The patient has had no recent pertinent visits to this hospital. Echocardiogram from October 2019 demonstrated mild concentric ventricular hypertrophy and an EF of 60 to 65%. Home Medications Current Medication List: was personally reviewed by me Laboratory Data Attestation: I reviewed the patient's lab results. Result diagrams: 09/23/21 16:00 09/23/21 16:00 Lab Results 09/23/21 09/23/21 09/23/21 Range/Units 15:45 15:45 16:00 WBC 8.95 (4.8-10.8) K/uL RBC 4.66 (4.2-5.4) M/uL Hgb 13.8 (12.0-16.0) g/dL Hct 41.7 (37-47) % MCV 89.5 (80-100) fL MCH 29.6 (25-34) pg MCHC 33.1 (32-36) g/dL RDW Std Deviation 47.2 H (36.4-46.3) fL RDW Coeff of Juanjo 14.4 (11.5-14.5) % Plt Count 250 (130-400) K/uL MPV 10.5 H (7.4-10.4) fL Immature Gran % (Auto) 0.1 % Neut % (Auto) 76.1 % Lymph % (Auto) 13.2 % Wilkin % (Auto) 7.6 % Eos % (Auto) 2.8 % Baso % (Auto) 0.2 % Neut # (Auto) 6.81 H (1.4-6.5) K/uL Lymph # (Auto) 1.18 L (1.2-3.4) K/uL Wilkin # (Auto) 0.68 H (0.11-0.59) K/uL Eos # (Auto) 0.25 (0-0.5) K/uL Baso # (Auto) 0.02 (0-0.2) K/uL Immature Gran # (Auto) 0.01 (0.00-0.02) K/uL Sodium (136-145) mmol/L Potassium (3.5-5.1) mmol/L Chloride (98-107) mmol/L Carbon Dioxide (21-32) mmol/L Anion Gap (3-11) BUN (6-23) mg/dl Creatinine (0.6-1.2) mg/dl Est Cr Clr Drug Dosing ml/min Est GFR ( Amer) ml/min Est GFR (Non-Af Amer) ml/min BUN/Creatinine Ratio (10-20) Glucose (70-99(Fasting)) mg/dl Calcium (8.5-10.1) mg/dl Total Bilirubin (0.2-1.0) mg/dl AST (13-39) U/L ALT (7-52) U/L Alkaline Phosphatase (34-104) U/L Troponin I (0-0.04) ng/ml B-Natriuretic Peptide (0-100) pg/ml Total Protein (6.0-8.3) gm/dl Albumin (3.4-5.0) gm/dl Globulin (2.5-4.0) gm/dl Albumin/Globulin Ratio (0.9-2) Influ A Molecular Assay Negative (Negative) Influ B Molecular Assay Negative (Negative) SARS-CoV-2, RNA, NAAT NEGATIVE (NEGATIVE) 09/23/21 09/23/21 Range/Units 16:00 16:21 WBC (4.8-10.8) K/uL RBC (4.2-5.4) M/uL Hgb (12.0-16.0) g/dL Hct (37-47) % MCV (80-100) fL MCH (25-34) pg MCHC (32-36) g/dL RDW Std Deviation (36.4-46.3) fL RDW Coeff of Juanjo (11.5-14.5) % Plt Count (130-400) K/uL MPV (7.4-10.4) fL Immature Gran % (Auto) % Neut % (Auto) % Lymph % (Auto) % Wilkin % (Auto) % Eos % (Auto) % Baso % (Auto) % Neut # (Auto) (1.4-6.5) K/uL Lymph # (Auto) (1.2-3.4) K/uL Wilkin # (Auto) (0.11-0.59) K/uL Eos # (Auto) (0-0.5) K/uL Baso # (Auto) (0-0.2) K/uL Immature Gran # (Auto) (0.00-0.02) K/uL Sodium 136 (136-145) mmol/L Potassium 3.4 L (3.5-5.1) mmol/L Chloride 98 (98-107) mmol/L Carbon Dioxide 29 (21-32) mmol/L Anion Gap 9 (3-11) BUN 16 (6-23) mg/dl Creatinine 0.94 (0.6-1.2) mg/dl Est Cr Clr Drug Dosing 48.8 ml/min Est GFR ( Amer) 67.3 ml/min Est GFR (Non-Af Amer) 58.1 ml/min BUN/Creatinine Ratio 17.0 (10-20) Glucose 123 H (70-99(Fasting)) mg/dl Calcium 9.5 (8.5-10.1) mg/dl Total Bilirubin 1.0 (0.2-1.0) mg/dl AST 21 (13-39) U/L ALT 13 (7-52) U/L Alkaline Phosphatase 65 (34-104) U/L Troponin I < 0.03 (0-0.04) ng/ml B-Natriuretic Peptide 113 H (0-100) pg/ml Total Protein 7.4 (6.0-8.3) gm/dl Albumin 4.0 (3.4-5.0) gm/dl Globulin 3.4 (2.5-4.0) gm/dl Albumin/Globulin Ratio 1.2 (0.9-2) Influ A Molecular Assay (Negative) Influ B Molecular Assay (Negative) SARS-CoV-2, RNA, NAAT (NEGATIVE) Imaging Data Radiologist's Impression: Chest X-Ray 09/23/21 15:39 XR chest 1V portable HISTORY: 76 years-old Female Dyspnea acute shortness of breath COMPARISON: Chest CT 10/07/2019 TECHNIQUE: Portable AP view of the chest FINDINGS: The cardiac silhouette is enlarged. Pulmonary vascular congestion with mild chronic interstitial coarsening. No pneumothorax or large pleural effusion. Mild blunting of the costophrenic angles. Degenerative changes of the shoulders and spine. IMPRESSION: Cardiomegaly with pulmonary vascular congestion. ACT 112: Negative or not required by law. The above report was generated using voice recognition software. It may contain grammatical, syntax or spelling errors. Electronically signed by: Yoel Vazquez M.D. 09/23/2021 3:55 PM ECG Data Attestation: I personally reviewed and interpreted this ECG as follows: Indication: + SOB/dyspnea Rate (beats per minute): 96 Rhythm: + atrial fibrillation ECG Wilson: + Normal ECG ST segments: no ST elevation ECG Findings: no PVCs Comparison ECG Date: from (October 08, 2019) Change: no significant change (Other than atrial fibrillation) MDM Narrative I did evaluate the patient as noted above. The patient is presenting with shortness of breath and cough and cold symptoms since last night. She did have COVID-19 3 weeks ago but fully recovered from that. On examination she has significant wheezing. She did receive a nebulizer prior to arrival and felt mu ch better. She has an O2 saturation of 94% on room air here. IV access was established. I did treat her with a hour-long DuoNeb here. She was also given Solu-Medrol [address] I did place an order for continuous cardiac monitoring. The monitor showed atrial fibrillation at a rate of 96 bpm. I did order and personally review the patient's 12-lead EKG as described above. She has no acute ischemic changes. I did order and personally reviewed the images of the patient's chest x-ray as described above. She has vascular congestion and cardiomegaly. I did order and review the patient's blood work as noted in the electronic medical record. CBC is unremarkable without leukocytosis or anemia. Electrolytes demonstrate a potassium of 3.4 but are otherwise unremarkable. LFTs are within normal limits. Troponin is negative. BNP is elevated at 113. Testing for flu and Covid are negative. I did reassess the patient. She is still wheezing but her wheezing is improved. She is still tachypneic here and will require hospitalization. I did treat her with Lasix IV. I did discuss the case with the hospitalist and welfare case worker. Impression & Plan Acute dyspnea, Bilateral edema of lower extremity, Acute bronchospasm, Pulmona ry vascular congestion, Anticoagulated Discharge Plan Visit Data Chief Complaint: Shortness of Breath/Dyspnea Stated Complaint: SOB ED Provider: Clemente Slater Discharge Problem: Acute dyspnea, Bilateral edema of lower extremity, Acute bronchospasm, Pulmonary vascular congestion, Anticoagulated Patient Disposition: Being Evaluated by Hospitalist Forms Stand Alone Forms: My [facility] Prescriptions Prescriptions: No Action cholecalciferol (vitamin D3) [Vitamin D3] 25 mcg (1,000 unit) capsule 3,000 unit PO QDL RF: 0 gabapentin 100 mg capsule 100 mg PO TID Qty: 90 RF: 3 Eliquis 5 mg tablet 5 mg PO BID Qty: 180 RF: 3 potassium chloride [Klor-Con M10] 10 mEq tablet,ER particles/crystals 30 meq PO QAM Qty: 90 RF: 3 albuterol sulfate [ProAir HFA] 90 mcg/actuation HFA aerosol inhaler 2 puff inhalation QID PRN (Reason: shortness of breath) Qty: 8.5 RF: 2 rosuvastatin 20 mg tablet 20 mg PO HS Qty: 90 RF: 3 triamterene-hydrochlorothiazid 37.5-25 mg capsule 1 cap PO QAM Qty: 90 RF: 3 cetirizine 10 mg tablet 10 mg PO DAILY RF: 0 metoprolol succinate 50 mg tablet extended release 24 hr 50 mg PO QAM RF: 0 Referrals Referrals: Domenic Nogueira MD [Primary Care Provider] -
--- NOTE | 2021-09-23 15:56 | XRay Report ---
XR chest 1V portable HISTORY: 76 years-old Female Dyspnea acute shortness of breath COMPARISON: Chest CT 10/07/2019 TECHNIQUE: Portable AP view of the chest FINDINGS: The cardiac silhouette is enlarged. Pulmonary vascular congestion with mild chronic interstitial coar sening. No pneumothorax or large pleural effusion. Mild blunting of the costophrenic angles. Degenera tive changes of the shoulders and spine. IMPRESSION: Cardiomegaly with pulmonary vascular congestion. ACT 112: Negative or not required by law. The above report was generated using voice recognition software. It may contain grammatical, syntax o r spelling errors. Electronically signed by: Yoel Vazquez M.D. 09/23/2021 3:55 PM
[2021-09-23 16:08] LABS: Influenza A virus by PCR Negative (Negative); Influenza B virus by PCR Negative (Negative)
[2021-09-23 16:14] LABS: Basophils # (auto) 0.02 K/uL (0-0.2); Basophils % (auto) 0.2 %; Eosinophils # (auto) 0.25 K/uL (0-0.5); Eosinophils % (auto) 2.8 %; Hematocrit (blood only) 41.7 % (37-47); Hemoglobin 13.8 g/dL (12.0-16.0); Immature Granulocytes # (auto) 0.01 K/uL (0.00-0.02); Immature Granulocytes % (auto) 0.1 %; Lymphocytes # (auto) 1.18 K/uL (1.2-3.4); Lymphocytes % (auto) 13.2 %; Mean Corpuscular Hemoglobin 29.6 pg (25-34); Mean Corpuscular Hgb Conc 33.1 g/dL (32-36); Mean Corpuscular Volume 89.5 fL (80-100); Mean Platelet Volume 10.5 fL (7.4-10.4); Monocytes # (auto) 0.68 K/uL (0.11-0.59); Monocytes % (auto) 7.6 %; Neutrophils # (auto) 6.81 K/uL (1.4-6.5); Neutrophils % (auto) 76.1 %; Platelet Count 250 K/uL (130-400); RDW Coefficient of Variation 14.4 % (11.5-14.5); RDW Standard Deviation 47.2 fL (36.4-46.3); Red Blood Count 4.66 M/uL (4.2-5.4); White Blood Count 8.95 K/uL (4.8-10.8)
[2021-09-23 16:35] LABS: Troponin I < 0.03 ng/ml (0-0.04)
[2021-09-23 16:36] LABS: Alanine Aminotransferase 13 U/L (7-52); Albumin Globulin Ratio 1.2 (0.9-2); Alkaline Phosphatase 65 U/L (34-104); Anion Gap 9 (3-11); Aspartate Aminotransferase 21 U/L (13-39); Blood Urea Nitrogen 16 mg/dl (6-23); Calcium 9.5 mg/dl (8.5-10.1); Carbon Dioxide 29 mmol/L (21-32); Chloride 98 mmol/L (98-107); Creatinine Clr Calc Pharmacy 48.8 ml/min; Est GFR (African American) 67.3 ml/min; Est GFR (Non-African American) 58.1 ml/min; Globulin 3.4 gm/dl (2.5-4.0); Glucose 123 mg/dl (70-99(Fasting)); Potassium 3.4 mmol/L (3.5-5.1); Sodium 136 mmol/L (136-145); Total Protein 7.4 gm/dl (6.0-8.3)
[2021-09-23] MEDS ORDERED: FUROSEMIDE INJ 20 MG/2 ML VIAL IV ONE (16:57)
--- NOTE | 2021-09-23 18:11 | History & Physical Report ---
Date of Service September 23, 2021 Assessment & Plan (1) Acute dyspnea: Plan: -No O2 requirement at home, no underlying pulmonary disease, reported O2 sats in high 80s in route to ED, received DuoNeb treatment by EMS. Now satting mid 90s after receiving albuterol and methylprednisolone in ED. -Differential includes acute exacerbation of underlying heart failure, DVT/PE, pneumonia. Pneumonia unlikely in the setting of normal WBC count, no fever/chills, and no consolidations visualized on CXR. Did have COVID-19 about 3 weeks ago, however states full recovery since then. Patient does have a cough that is somewhat productive of scant yellow sputum, however this is more likely due to pulmonary vascular congestion noted on CXR. Given patient is already anticoagulated with reported compliance, O2 sat in 90s on room air, and without signs or symptoms consistent with VTE, this is less likely. Shortness of breath has been progressive over several days, with patient reported 3 to 4 pound weight gain. States noncompliance with low-sodium diet, consumes a "good amount "of water every day. This, as well as CXR which revealed cardiomegaly with pulmonary vascular congestion, and JVD, rales on auscultation correlate more with the picture of an acute heart failure exacerbation. Patient initially with HR in 90s, was slightly tachycardic upon my exam with heart rate in the 130- 140s, however nurse is at bedside and reports she had just completed an albuterol treatment, which is likely responsible for increased heart rate. We will defer further work-up of VTE for now. Continue anticoagulation. -Influenza and Covid test negative. -Receiving IV Lasix 20 mg now, will monitor response with likely dosing his Lasix 20 mg twice daily starting tomorrow. -CBC and BMP in AM. (2) Acute heart failure with preserved ejection fraction (HFpEF): Plan: Acute on chronic HFpEF -Followed by Dr. Redd, has had SOB in the past with bilateral lower extremity edema for which he suspected HFpEF and prescribed triamterene-HCTZ 37.5/25 daily, as well as KCl 30 po daily. Patient has been compliant with both. -Reports 3-4 lb weight gain this week, noncompliance with low Na diet, drinks lots of water. -BNP 113, no previous labs to compare with. Patient does appear to be slightly volume overloaded on my exam, rales heard throughout lung wolff. JVD appreciated. -Most recent echo from October 2019--> EF 60-65%, mild mitral regurg, borderline LVH, left ventricular systolic function normal, no regional wall abnormalities noted. -We will order routine echo, will place a consult for the CHF program. -Patient receiving 20 mg IV Lasix in ED, will monitor response. Will dose Lasix 20 mg twice daily starting tomorrow. -Holding thiazide diuretic for now. -Please check daily weights. -Heart healthy, low-sodium diet with fluid restriction of 1.5 L. -Repeat BMP in a.m. (3) Hypokalemia: Plan: -3.4 in ED without EKG changes, patient takes KCl 30 daily, reports she did not take this today. -Will replete with 40 KCl p.o. now, repeat BMP in AM. -Hold HCTZ. (4) Atrial fibrillation: Plan: -Followed by Dr. Redd, per his notes it appears that she continues to be in chronic A. fib despite cardioversion attempts in the past. Rate control with b- belem, on Eliquis. Patient not reporting palpitations, chest pain. -Continue metoprolol succinate 50 mg po daily. -Lopressor 5 mg IV Q6h for HR > 120. -Continue Eliquis 5mg BID. Has taken first dose today as prescribed. Next dose this evening. -On tele. (5) Hypercholesterolemia: Plan: -Continue rosuvastatin 20 mg daily. (6) Angioedema: Plan: -Not present on my exam, patient without complaints of it at this time. -Followed by Dr. Friend who recommends cetirizine recommended daily and prednisone 20 mg at first sign of angioedema. -Will continue daily cetirizine. (7) Bilateral leg pain: Plan: -Intermittent, patient not complaining of this today. -Dr. Nogueira started patient on gabapentin 100 mg 3 times daily for this. Patient reports some alleviation of symptoms. (8) History of COVID-19: Plan: -Onset 3 weeks ago with resolution after one week, not requiring hospitalization. Symptoms included fatigue and slightly productive cough. No fever/chills, SOB, or new oxygen requirement. -COVID test in ED today is negative. Plan: -admit inpatient on tele. -Conditional code, does not want intubation or artificial ventilation. -SCDs ordered, continue Eliquis for chemo-ppx History of Present Illness Chief Complaint: shortness of breath Primary Care Provider: Domenic Nogueira MD Patient is a 76-year-old female with a past medical history of hypertension, chronic A. fib anticoagulated and rate controlled, hyperlipidemia, and angioedema who presents to the ED today with shortness of breath. Patient states over the past several days she has gradually become short of breath with activity and sometimes at rest. This became intolerable for patient today, which prompted her to call EMS for further evaluation in our ED. EMS reporting O2 sats in high 80s during transportation, patient was given a DuoNeb treatment during transportation and reports some alleviation. Patient on note also notes a 3 to 4 pound weight gain over the past week. States she has been instructed to follow a low-sodium diet and cut back on water intake, however she has not. Denies fever/chills, myalgias, chest pain, palpitations, presyncope/syncope, unilateral leg swelling, calf pain, abdominal pain, nausea, vomiting, diarrhea, constipation. No history of lung disease, VTE. Patient did have COVID 3 weeks ago, she states she mainly felt fatigued and developed a moderate, nonproductive cough. Did not require hospitalization, full resolution of symptoms after 1 week. Vaccinated and boosted. ED evaluation included CBC was unremarkable, CMP with potassium 3.4, glucose 123, otherwise within normal limits. BNP 113. Flu and Covid test negative. CXR revealed cardiomegaly with pulmonary vascular congestion. Patient received another DuoNeb treatment as well as Solu-Medrol 125 mg IV in the ED to which patient had a favorable response. Lasix 20 mg IV ordered. Hospitalist service was consulted for further evaluation and admission. Allergies Allergy/AdvReac Type Severity Reaction Status Date / Time moxifloxacin AdvReac Intermediate Confusion Verified 09/23/21 16:05 irbesartan [From Avapro] AdvReac Unknown Unknown Verified 09/23/21 16:05 coban Allergy Intermediate Rash Uncoded 09/23/21 16:05 Home Medications Medication Instructions Recorded Confirmed Type cholecalciferol (vitamin D3) 25 3,000 unit PO QDL cap 12/04/20 09/23/21 History mcg (1,000 unit) capsule (Vitamin D3) cetirizine 10 mg tablet 10 mg PO DAILY tab 03/20/21 09/23/21 History rosuvastatin 20 mg tablet 20 mg PO HS #90 tab 03/20/21 09/23/21 Rx triamterene 37.5 1 cap PO QAM #90 cap 03/20/21 09/23/21 Rx mg-hydrochlorothiazide 25 mg capsule gabapentin 100 mg capsule 100 mg PO TID #90 cap 05/03/21 09/23/21 Rx apixaban 5 mg tablet (Eliquis) 5 mg PO BID #180 tab 05/21/21 09/23/21 Rx potassium chloride 10 mEq 30 meq PO QAM #90 tab 06/13/21 09/23/21 Rx tablet,extended release(part/cryst) (Klor-Con M) albuterol sulfate 90 mcg/actuation 2 puff INHALATION QID PRN #8.5 g 08/31/21 09/23/21 Rx aerosol inhaler (ProAir HFA) metoprolol succinate 50 mg 50 mg PO QAM 09/23/21 09/23/21 History tablet,extended release 24 hr Past Med/Surg History Medical History Acute hyperglycemia Aneurysm of external carotid artery Angioedema Atrial fibrillation Erythema migrans (Lyme disease) Facial cellulitis Ganglion cyst of both wrists Hyperlipidemia Hypertension Intertrigo Kidney stones Lumbar spinal stenosis Migraine headache Morbid obesity Symptomatic PVCs Tremor Vitamin D deficiency Surgical History History of arthroscopy RIGHT KNEE History of cataract surgery BILATERAL History of colonoscopy Family History Brother Family hx of colon cancer Colorectal cancer Prostate cancer Mother Family history of diabetes mellitus Sister Breast cancer Father Coronary heart disease Denies family history of Ovarian cancer Myocardial infarction Social History Smoking Status: Never smoker Second Hand Exposure: No; Hx Alcohol Use: No Hx Substance Use: No Preferred Language: Mexican Communication Ability: Effective Visual Impairment: No Limitations Hearing Ability: Normal Match Marker Required: No Beliefs That Will Affect Care: None marital status: single Current Living Situation: Family Current Living Situation Comment: daughter lives with her current occupational status: retired current occupation: retired from career running machines Feels Safe at Home: Yes Childhood Exposure to Second-Hand Smoke: Yes Diet Comment: trying to watch what she is eating caffeine: Yes Dental Care, Regularly: No Physical Activity Frequency: Does not Exercise Seatbelt Use: always Sunscreen Use: No Assistive Devices: Cane Review of Systems Review of Systems: Constitutional: No fever, sweats or chills Eyes: No diplopia, no worsening or blurred vision ENT: normal hearing, no trouble swallowing Respiratory: reports increased SOB over the past several days with minimal increase in cough with some yellow sputum Cardiovascular: No chest pain, tightness or palpitations Abdomen: No pain, nausea, vomiting, diarrhea or constipation Musculoskeletal: Reports mild ongoing b/l calf pain without acute worsening; no swelling Neurologic: No weakness, numbness/tingling, or balance problems Psychiatric: No anxiety or depression Skin: No rash or itch Physical Exam Physical Exam: General: awake, alert, no apparent distress Head: Normocephalic, atraumatic ENT: PERRL, EOMI, no pharyngeal exudate, mucous membranes moist Chest: inspiratory and expiratory wheezes heard throughout lung wolff; on room air, Spo2 94% Cardiac: tachycardic, no murmur, no JVD, normal peripheral pulses, good capillary refill Abdominal: NABS x 4 quadrants, soft, nontender to palpation, no rebound, guarding or tenderness Extremities: Normal inspection, no peripheral edema or erythema, calfs nontender to palpation Psych: Normal mood and affect Neuro: AAO x 3, strength intact bilaterally and rated 5/5, no motor deficits, speech is clear, no peripheral sensory deficits Skin: no rash or erythema Results & Data Results & Data ([facility]) Vital Signs (Past 12 Hours) Vital Signs Pulse Pulse Resp BP BP Pulse Ox 09/23/21 17:30 130 H 22 93 09/23/21 17:15 130 H 22 93 09/23/21 17:10 112/63 09/23/21 17:00 136 H 22 112/63 98 09/23/21 16:57 77/65 L 09/23/21 16:30 113 H 22 99 09/23/21 16:00 98 H 22 128/70 99 09/23/21 15:55 96 H 26 H 93 09/23/21 15:39 22 93 09/23/21 15:31 102 H 22 155/87 H 94 Laboratory Results Abnormal lab results 09/23/21 09/23/21 09/23/21 Range/Units 16:00 16:00 16:21 RDW Std Deviation 47.2 H (36.4-46.3) fL MPV 10.5 H (7.4-10.4) fL Neut # (Auto) 6.81 H (1.4-6.5) K/uL Lymph # (Auto) 1.18 L (1.2-3.4) K/uL [place] # (Auto) 0.68 H (0.11-0.59) K/uL Potassium 3.4 L (3.5-5.1) mmol/L Glucose 123 H (70-99(Fasting)) mg/dl B-Natriuretic Peptide 113 H (0-100) pg/ml Diagnostic Findings Chest X-Ray 09/23/21 15:39 XR chest 1V portable HISTORY: 76 years-old Female Dyspnea acute shortness of breath COMPARISON: Chest CT 10/07/2019 TECHNIQUE: Portable AP view of the chest FINDINGS: The cardiac silhouette is enlarged. Pulmonary vascular congestion with mild chronic interstitial coarsening. No pneumothorax or large pleural effusion. Mild blunting of the costophrenic angles. Degenerative changes of the shoulders and spine. IMPRESSION: Cardiomegaly with pulmonary vascular congestion. ECG Additional Comments: Undetermined rhythm Low voltage QRS Septal infarct , age undetermined Abnormal ECG When compared with ECG of 08-OCT-2019 08:52, Current undetermined rhythm precludes rhythm comparison, needs review Septal infarct is now Present *Awaiting official review, however upon my review, believe she is in a fibb/flutter, evidence of septal infarct likely due to lead placement. Patient without chest pain, no trop elevation. Code Status & VTE Plan Code Status Conditional code, patient does not want intubation or artificial ventilation. VTE Prophylaxis Plan VTE Prophylaxis will be ordered: Yes Supervising Physician Co-Signing Physician Notes PA Supervision Note: I personally saw and examined the patient. I verified all galeana points and agree with OLEKSANDR Nguyen with the following exceptions and/or additions: This patient is a 76-year-old female with a history of HTN, permanent A. fib on Eliquis, chronic diastolic CHF, obesity, hyperlipidemia, angioedema, who presents to the ER with shortness of breath and tachypnea. She was found to be diffusely wheezing but pulse ox was 93% on room air. She has noticed weight gain recently and admits to drinking "a lot of water." She did have Covid recently about 3 weeks ago but seem to make full recovery from this and did not require hospitalization. Her vitals are otherwise stable except for some rapid heart rates after receiving an hour-long nebulizer treatment. Denies chest pains. After receiving IV Lasix, IV Solu-Medrol, and an hour-long nebulizer treatment in the ER, she reports feeling better. History and ROS reviewed as above Vitals reviewed Gen: AAOx3, NAD, morbidly obese HEENT: Anicteric sclerae, EOMI CV: Irregularly irregular, rapid rate, no mgr nl S1S2 Pulm: Diffuse wheezing, no crackles, no tachypnea Abd: +BS soft NT ND no masses or hernias Ext: Trace edema in legs bilaterally,2+ DP pulses Skin: No rashes, warm/dry Neuro: Full strength throughout Labs and rads reviewed ECG reviewed 76-year-old female here with tachypnea and diffuse wheezing, likely secondary to acute on chronic diastolic CHF with cardiac wheeze She is on inhalers at home but has no known diagnosis of COPD or asthma and is a non-smoker. Given her weight gain and chest x-ray findings, mildly elevated proBNP, suggest all related to heart failure -Admit to telemetry, improve rate control with IV Lopressor as needed -Treating with IV Lasix for diuresis as above Follow chemistries and replace magnesium and potassium as needed CHF program referral placed -No need for IV steroids at this time PG Care Time/CCT Total # of Minutes Spent Total Time Spent with Patient: Total time spent is greater than 50% in coordination of care (as documented) at patient's floor/unit and/or counseling patient: Coding Level of Care Code 26259 Initial Inpt Care Lvl 3 Diagnoses Atrial fibrillation I48.0 Atrial fibrillation type: paroxysmal Hypercholesterolemia E78.00 Hypokalemia E87.6 Angioedema T78.3XXD Encounter type: subsequent encounter Acute heart failure with preserved ejection fraction (HFpEF) I50.31 History of COVID-19 Z86.16 Acute dyspnea R06.00 Bilateral leg pain M79.604; M79.605 (1) Angioedema Encounter type: subsequent encounter Qualified Code(s): T78.3XXD - Angioneurotic edema, subsequent encounter (2) Atrial fibrillation Atrial fibrillation type: paroxysmal Qualified Code(s): I48.0 - Paroxysmal atrial fibrillation
[2021-09-23] MEDS ORDERED: POTASSIUM CHLORIDE CRTAB 20 MEQ TABCR PO STA (18:24)
[2021-09-23] MEDS ORDERED: ALBUTEROL HFA 8 GM INHALER INH PRN (18:29)
[2021-09-23] MEDS ORDERED: POLYETHYLENE (MIRALAX) 17 GM PACK PO PRN (20:32)
[2021-09-23] MEDS ORDERED: ONDANSETRON INJ 2 MG/ML 2 ML VIAL IV PRN (20:32)
[2021-09-23] MEDS ORDERED: METOPROLOL TARTRATE 1 MG/ML VIAL IV PRN (20:32)
[2021-09-23] MEDS: ACETAMINOPHEN 325 MG TAB PO PRN (21:06)
[2021-09-23] MEDS: ROSUVASTATIN CALCIUM 20 MG TAB PO SCH (21:07)
[2021-09-23] MEDS: APIXABAN 5 MG TABLET PO SCH (21:07)
[2021-09-23] MEDS: GABAPENTIN 100 MG CAP PO SCH (21:08)
[2021-09-24 07:44] LABS: Hematocrit (blood only) 39.8 % (37-47); Hemoglobin 13.3 g/dL (12.0-16.0); Immature Granulocytes # (auto) 0.01 K/uL (0.00-0.02); Immature Granulocytes % (auto) 0.1 %; Lymphocytes # (auto) 0.72 K/uL (1.2-3.4); Lymphocytes % (auto) 10.6 %; Mean Corpuscular Hemoglobin 29.5 pg (25-34); Mean Corpuscular Hgb Conc 33.4 g/dL (32-36); Mean Corpuscular Volume 88.2 fL (80-100); Mean Platelet Volume 10.5 fL (7.4-10.4); Monocytes # (auto) 0.17 K/uL (0.11-0.59); Monocytes % (auto) 2.5 %; Neutrophils # (auto) 5.89 K/uL (1.4-6.5); Neutrophils % (auto) 86.8 %; Platelet Count 248 K/uL (130-400); RDW Coefficient of Variation 14.5 % (11.5-14.5); RDW Standard Deviation 47.2 fL (36.4-46.3); Red Blood Count 4.51 M/uL (4.2-5.4); White Blood Count 6.79 K/uL (4.8-10.8)
[2021-09-24 08:04] LABS: BUN Creatinine Ratio 19.6 (10-20); Calcium 9.5 mg/dl (8.5-10.1); Creatinine Clr Calc Pharmacy 42.9 ml/min; Est GFR (African American) 57.6 ml/min; Est GFR (Non-African American) 49.7 ml/min; Magnesium 1.9 mg/dl (1.7-2.4)
[2021-09-24] MEDS ORDERED: FUROSEMIDE INJ 20 MG/2 ML VIAL IV SCH (09:00)
[2021-09-24] MEDS: APIXABAN 5 MG TABLET PO SCH ×2 (09:05→22:21)
[2021-09-24] MEDS: CETIRIZINE HCL 10 MG TABLET PO SCH (09:05)
[2021-09-24] MEDS: POTASSIUM CHLORIDE 10 MEQ TABCR PO SCH (09:06)
[2021-09-24] MEDS: METOPROLOL SUCC 50MG EXT REL TAB PO SCH (09:06)
[2021-09-24] MEDS: GABAPENTIN 100 MG CAP PO SCH ×3 (09:07→20:22)
[2021-09-24] MEDS: FUROSEMIDE 40 MG/4 ML VIAL IV SCH ×2 (09:21→16:34)
--- NOTE | 2021-09-24 10:18 | XCELERA ---
[id number] \\[id number]
--- NOTE | 2021-09-24 10:38 | Electrocardiogram Report ---
Test Reason : Blood Pressure : / mmHG Vent. Rate : 096 BPM Atrial Rate : 119 BPM P-R Int : 000 ms QRS Dur : 072 ms QT Int : 350 ms P-R-T Axes : 054 031 059 degrees QTc Int : 442 ms Sinus rhythm with 1st degree AV block Low voltage QRS Abnormal ECG When compared with ECG of 08-OCT-2019 08:52, minimal change Confirmed by Domenic Jordan ([id number]) on 09/24/2021 10:37:47 AM Referred By: Confirmed By:Lito Jordan
[2021-09-24] MEDS: ACETAMINOPHEN 325 MG TAB PO PRN (11:08)
[2021-09-24] MEDS: CHOLECALCIFEROL 1,000 UNITS 25 MCG TAB PO SCH (11:09)
--- NOTE | 2021-09-24 11:21 | Hospitalist Progress Note ---
Date of Service September 24, 2021 Assessment & Plan (1) Acute heart failure with preserved ejection fraction (HFpEF): Plan: Acute exacerbation on chronic HFpEF Followed by Dr. Redd, has had SOB in the past with bilateral lower extremity edema for which he suspected HFpEF and prescribed triamterene-HCTZ 37.5/25 daily, as well as KCl 30 po daily. Patient has been compliant with both. Reports 3-4 lb weight gain this week, noncompliance with low Na diet, drinks lots of water. Most recent echo from October 2019--> EF 60-65%, mild mitral regurg, borderline LVH, left ventricular systolic function normal, no regional wall abnormalities noted. Update echo, consult placed for the CHF program. Patient receiving 20 mg IV Lasix in ED and continued on 20mg IV BID by admitting team. Increase Lasix dose to 40mg IV BID Continue holding thiazide diuretic for now. Daily weights and I/O monitoring q shift low-sodium diet with fluid restriction of 1.5 L. Monitor renal function in setting of IV diuresis (2) Hypokalemia: Plan: Replaced/resolved (3) Atrial fibrillation: Plan: Chronic; followed by Dr. Redd. Rate controlled with b-belem, on Eliquis. Continue metoprolol succinate 50 mg po daily. Lopressor 5 mg IV Q6h for HR > 120. Continue Eliquis 5mg BID. (4) Hypercholesterolemia: Plan: Continue rosuvastatin 20 mg daily. (5) Angioedema: Plan: Not present on my exam, patient without complaints of it at this time. Followed by Dr. Friend who recommends cetirizine recommended daily and prednisone 20 mg at first sign of angioedema. Will continue daily cetirizine. (6) Bilateral leg pain: Plan: Intermittent, patient not complaining of this today. Dr. Nogueira started patient on gabapentin 100 mg 3 times daily for this. (7) History of COVID-19: Plan: Onset 3 weeks ago with resolution after one week, not requiring hospital ization. COVID test in ED today is negative. Plan: Interventions as outlined above--update echo, diuresis, wean O2 Follow up labs and CXR in AM Lives at home w/ daughter (who works during the day)--PT/OT eval Admission and Anticipated Discharge Date Admission Date: September 23, 2021 Subjective Patient was seen on rounds today. She is resting comfortably in bed and offers no complaints. She reports feeling that her breathing is improved. She continues to have mild cough but nonproductive. Denies cp. +orthopnea. She denies chest pain. Review of Systems Review of Systems: Constitutional: No fever, sweats or chills Eyes: No diplopia, no worsening or blurred vision ENT: normal hearing, no trouble swallowing Respiratory: no sob at rest. Pos mild cough and orthopnea. Cardiovascular: No chest pain, tightness or palpitations Abdomen: No pain, nausea, vomiting, diarrhea or constipation Musculoskeletal: Reports mild ongoing b/l calf pain without acute worsening; no swelling Neurologic: No weakness, numbness/tingling, or balance problems Psychiatric: No anxiety or depression Skin: No rash or itch Physical Exam Physical Exam: GENERAL: 76 yo well-developed, well-nourished elderly WF. NAD. LUNGS: Good air exchange, nonlabored. Fine bibasilar crackles. CARDIOVASCULAR: Irregularly irregular ABDOMEN: Soft, non-tender and non-distended. BS normal x 4 quad. EXTREMITIES: Trace edema b/l LE. Non-tender. Peripheral pulses +2/4. NEUROLOGIC: A&O x3. PSYCHIATRIC: Cooperative. Appropriate mood and affect. SKIN: Warm, dry, intact. No rashes or lesions. Results & Data Results & Data ([facility]) Vital Signs (Past 12 Hours) Vital Signs Temp Pulse Pulse Resp BP Pulse Ox 09/24/21 11:00 36.6 C 84 20 148/91 H 93 09/24/21 07:36 36.4 C L 76 20 133/65 96 09/24/21 07:00 70 09/24/21 03:33 100 H 09/24/21 03:12 36.7 C 81 18 120/64 94 Laboratory Results 09/24/21 06:58 09/24/21 06:58 PG Care Time/CCT Total # of Minutes Spent Total Time Spent with Patient: Total time spent is greater than 50% in coordination of care (as documented) at patient's floor/unit and/or counseling patient: Coding Level of Care Code 96651 Subseq Hosp Care Lvl 2 Diagnoses Acute heart failure with preserved ejection fraction (HFpEF) I50.31 Hypokalemia E87.6 Atrial fibrillation I48.0 Atrial fibrillation type: paroxysmal Hypercholesterolemia E78.00 Angioedema T78.3XXD Encounter type: subsequent encounter Bilateral leg pain M79.604; M79.605 History of COVID-19 Z86.16 (1) Atrial fibrillation Atrial fibrillation type: paroxysmal Qualified Code(s): I48.0 - Paroxysmal atrial fibrillation (2) Angioedema Encounter type: subsequent encounter Qualified Code(s): T78.3XXD - Angioneurotic edema, subsequent encounter
[2021-09-24] MEDS: ROSUVASTATIN CALCIUM 20 MG TAB PO SCH (20:22)
[2021-09-25] MEDS: APIXABAN 5 MG TABLET PO SCH ×2 (08:03→19:50)
[2021-09-25] MEDS: GABAPENTIN 100 MG CAP PO SCH ×3 (08:03→19:50)
[2021-09-25] MEDS: METOPROLOL SUCC 50MG EXT REL TAB PO SCH (08:05)
[2021-09-25] MEDS: POTASSIUM CHLORIDE 10 MEQ TABCR PO SCH (08:05)
[2021-09-25 08:16] LABS: Basophils # (auto) 0.01 K/uL (0-0.2); Basophils % (auto) 0.1 %; Eosinophils # (auto) 0.02 K/uL (0-0.5); Eosinophils % (auto) 0.2 %; Hematocrit (blood only) 43.9 % (37-47); Hemoglobin 14.6 g/dL (12.0-16.0); Immature Granulocytes # (auto) 0.02 K/uL (0.00-0.02); Immature Granulocytes % (auto) 0.2 %; Lymphocytes # (auto) 1.52 K/uL (1.2-3.4); Mean Corpuscular Hemoglobin 29.7 pg (25-34); Mean Corpuscular Hgb Conc 33.3 g/dL (32-36); Mean Corpuscular Volume 89.4 fL (80-100); Mean Platelet Volume 10.6 fL (7.4-10.4); Monocytes # (auto) 1.04 K/uL (0.11-0.59); Monocytes % (auto) 8.9 %; Neutrophils # (auto) 9.05 K/uL (1.4-6.5); Neutrophils % (auto) 77.6 %; Platelet Count 269 K/uL (130-400); RDW Coefficient of Variation 14.6 % (11.5-14.5); RDW Standard Deviation 47.9 fL (36.4-46.3); Red Blood Count 4.91 M/uL (4.2-5.4); White Blood Count 11.66 K/uL (4.8-10.8)
[2021-09-25] MEDS: FUROSEMIDE 40 MG/4 ML VIAL IV SCH (08:26)
[2021-09-25 08:36] LABS: BUN Creatinine Ratio 34.6 (10-20); Calcium 9.3 mg/dl (8.5-10.1); Creatinine Clr Calc Pharmacy 42.6 ml/min; Est GFR (African American) 57.6 ml/min; Est GFR (Non-African American) 49.7 ml/min; Potassium 3.6 mmol/L (3.5-5.1)
[2021-09-25] MEDS: CETIRIZINE HCL 10 MG TABLET PO SCH (10:33)
--- NOTE | 2021-09-25 10:34 | CT Scan Report ---
CT chest diagnostic wo con CT DOSE: 769.86 mGy.cm CLINICAL HISTORY: 76 years-old Female with hypoxia, cough, r/o pna. Acute cough with hypoxia TECHNIQUE: Multiaxial CT images of the chest were performed without contrast. A dose lowering techni que was utilized adhering to the principles of ALARA. COMPARISON: Chest radiograph 09/23/2021, chest CT 10/07/2019 FINDINGS: Unremarkable thyroid. No pathologically enlarged lymph nodes. The heart is normal in size w ithout pericardial effusion. Minimal coronary artery with [id number] thoracic aortic calcificat ions. No pneumothorax, pleural effusion, airspace consolidation or overt pulmonary edema. Bronchial wall th ickening is noted bilaterally. Mild mosaic attenuation with groundglass densities is similar to prior . There are a few scattered benign-appearing solid pulmonary nodule redemonstrated measuring up to 4 mm which are stable from prior. The central airways are patent. No acute process of the imaged upper abdomen. There is suggestion of mild hepatic steatosis. Unremark able soft tissues. No acute fracture. IMPRESSION: 1. Bronchial wall thickening suggestive of bronchitis versus reactive airway disease. Mild associate bilateral atelectasis with air trapping. 2. No pleural effusion or airspace consolidation typical for pneumonia. ACT 112: Negative or not required by law. Electronically signed by: Yoel Vazquez M.D. 09/25/2021 10:32 AM
[2021-09-25] MEDS: guaiFENesin/DEXTROM SYRUP 200MG/20MG 10ML UDC PO PRN ×2 (10:38→21:36)
--- NOTE | 2021-09-25 11:22 | Hospitalist Progress Note ---
Date of Service September 25, 2021 Assessment & Plan (1) Acute bronchitis: Plan: CT scan obtained without contrast which indicates findings of bronchitis Obtain sputum culture and Gram stain Empiric Zithromax and prednisone Start duo nebs scheduled 4 times daily (2) Acute heart failure with preserved ejection fraction (HFpEF): Plan: Acute exacerbation on chronic HFpEF Followed by Dr. Redd, has had SOB in the past with bilateral lower extremity edema for which he suspected HFpEF and prescribed triamterene-HCTZ 37.5/25 daily, as well as KCl 30 po daily. Patient has been compliant with both. Reports 3-4 lb weight gain this week, noncompliance with low Na diet, drinks lots of water. Updated echo--normal LV systolic function, both atria mildly dilated, mild mitral regurg, normal RVSP (not significantly changed from last echo from october 2019) IV diuresis ordered -- down ~2.5 lb since admission, appears euvolemic, transition back to Triamterene/HCTZ in AM Continue low-sodium diet with fluid restriction of 1.5 L. Wean O2 (3) Hypokalemia: Plan: Replaced/resolved (4) Atrial fibrillation: Plan: Chronic; followed by Dr. Redd. Rate controlled with b-belem, on Eliquis. Continue metoprolol succinate 50 mg po daily. Lopressor 5 mg IV Q6h for HR > 120. Continue Eliquis 5mg BID. (5) Hypercholesterolemia: Plan: Continue rosuvastatin 20 mg daily. (6) Angioedema: Plan: Not present on my exam, patient without complaints of it at this time. Followed by Dr. Friend who recommends cetirizine recommended daily and prednisone 20 mg at first sign of angioedema. Will continue daily cetirizine. (7) Bilateral leg pain: Plan: Intermittent, patient not complaining of this today. Dr. Nogueira started patient on gabapentin 100 mg 3 times daily for this. (8) History of COVID-19: Plan: Onset 3 weeks ago with resolution after one week, not requiring hospita lization. COVID test in ED today is negative. Plan: Interventions as outlined above Transition IV diuretics back to triamterene/hydrochlorothiazide Initiate empiric antibiotics, steroids, nebs, wean O2 Lives at home w/ daughter (who works during the day)--PT/OT eval Labs in the a.m. D/C planning Admission and Anticipated Discharge Date Admission Date: September 23, 2021 Subjective Patient was seen on rounds today. Sitting on the edge of the bed, tearful as she states that her morning lab draw was painful but otherwise has no complaints. She continues to have ongoing cough with yellow sputum. No fevers or chills. Denies chest pain or shortness of breath. Review of Systems Review of Systems: Constitutional: No fever, sweats or chills Eyes: No diplopia, no worsening or blurred vision ENT: normal hearing, no trouble swallowing Respiratory: no sob at rest. Pos mild cough and orthopnea. Cardiovascular: No chest pain, tightness or palpitations Abdomen: No pain, nausea, vomiting, diarrhea or constipation Musculoskeletal: Reports mild ongoing b/l calf pain without acute worsening; no swelling Neurologic: No weakness, numbness/tingling, or balance problems Psychiatric: No anxiety or depression Skin: No rash or itch Physical Exam Physical Exam: GENERAL: 76 yo well-developed, well-nourished elderly WF. NAD. LUNGS: Good air exchange, nonlabored. Fine bibasilar crackles. CARDIOVASCULAR: Irregularly irregular ABDOMEN: Soft, non-tender and non-distended. BS normal x 4 quad. EXTREMITIES: Trace edema b/l LE. Non-tender. Peripheral pulses +2/4. NEUROLOGIC: A&O x3. PSYCHIATRIC: Cooperative. Appropriate mood and affect. SKIN: Warm, dry, intact. No rashes or lesions. Results & Data Results & Data ([facility]) Vital Signs (Past 12 Hours) Vital Signs Temp Pulse Pulse Resp BP Pulse Ox 09/25/21 08:05 36.5 C 59 L 18 133/68 94 09/25/21 03:18 78 09/25/21 02:55 36.5 C 70 20 117/65 93 Laboratory Results 09/25/21 07:46 09/25/21 07:[address] 09/25/21 09:03 CT chest diagnostic wo con CT DOSE: 769.86 mGy.cm CLINICAL HISTORY: 76 years-old Female with hypoxia, cough, r/o pna. Acute cough with hypoxia TECHNIQUE: Multiaxial CT images of the chest were performed without contrast. A dose lowering technique was utilized adhering to the principles of ALARA. COMPARISON: Chest radiograph 09/23/2021, chest CT 10/07/2019 FINDINGS: Unremarkable thyroid. No pathologically enlarged lymph nodes. The heart is normal in size without pericardial effusion. Minimal coronary artery with [id number] thoracic aortic calcifications. No pneumothorax, pleural effusion, airspace consolidation or overt pulmonary edema. Bronchial wall thickening is noted bilaterally. Mild mosaic attenuation with groundglass densities is similar to prior. There are a few scattered benign-appearing solid pulmonary nodule redemonstrated measuring up to 4 mm which are stable from prior. The central airways are patent. No acute process of the imaged upper abdomen. There is suggestion of mild hepatic steatosis. Unremarkable soft tissues. No acute fracture. IMPRESSION: 1. Bronchial wall thickening suggestive of bronchitis versus reactive airway disease. Mild associate bilateral atelectasis with air trapping. 2. No pleural effusion or airspace consolidation typical for pneumonia. ACT 112: Negative or not required by law. Electronically signed by: Yoel Vazquez M.D. 09/25/2021 10:32 AM PG Care Time/CCT Total # of Minutes Spent Total Time Spent with Patient: Total time spent is greater than 50% in coordination of care (as documented) at patient's floor/unit and/or counseling patient: Coding Level of Care Code 42910 Subseq Hosp Care Lvl 2 Diagnoses Acute heart failure with preserved ejection fraction (HFpEF) I50.31 Hypokalemia E87.6 Atrial fibrillation I48.0 Atrial fibrillation type: paroxysmal Hypercholesterolemia E78.00 Angioedema T78.3XXD Encounter type: subsequent encounter Bilateral leg pain M79.604; M79.605 History of COVID-19 Z86.16 Acute bronchitis J20.9 (1) Atrial fibrillation Atrial fibrillation type: paroxysmal Qualified Code(s): I48.0 - Paroxysmal atrial fibrillation (2) Angioedema Encounter type: subsequent encounter Qualified Code(s): T78.3XXD - Angioneurotic edema, subsequent encounter
[2021-09-25] MEDS ORDERED: AZITHROMYCIN 250 MG TAB PO ONE (11:30)
[2021-09-25] MEDS ORDERED: IRON SUCROSE 200 MG in 0.9 % SODIUM CHLORIDE 100 ML IV SCH (11:30)
[2021-09-25] MEDS: predniSONE 20 MG TAB PO SCH (13:14)
[2021-09-25] MEDS: ALBUT/IPRATROP 3MG/0.5MG NEB 3 ML VIAL NEB SCH ×2 (15:15→19:02)
[2021-09-25] MEDS: CHOLECALCIFEROL 1,000 UNITS 25 MCG TAB PO SCH (16:41)
[2021-09-25] MEDS: ROSUVASTATIN CALCIUM 20 MG TAB PO SCH (19:50)
[2021-09-26 06:59] LABS: Hemoglobin 13.7 g/dL (12.0-16.0); Immature Granulocytes # (auto) 0.01 K/uL (0.00-0.02); Immature Granulocytes % (auto) 0.1 %; Lymphocytes # (auto) 1.46 K/uL (1.2-3.4); Lymphocytes % (auto) 20.6 %; Mean Corpuscular Hemoglobin 29.3 pg (25-34); Mean Corpuscular Hgb Conc 32.6 g/dL (32-36); Mean Corpuscular Volume 89.7 fL (80-100); Mean Platelet Volume 10.4 fL (7.4-10.4); Monocytes # (auto) 0.64 K/uL (0.11-0.59); Neutrophils # (auto) 4.99 K/uL (1.4-6.5); Neutrophils % (auto) 70.3 %; Platelet Count 272 K/uL (130-400); RDW Coefficient of Variation 14.8 % (11.5-14.5); RDW Standard Deviation 48.9 fL (36.4-46.3); Red Blood Count 4.68 M/uL (4.2-5.4)
[2021-09-26] MEDS: ALBUT/IPRATROP 3MG/0.5MG NEB 3 ML VIAL NEB SCH ×3 (07:06→14:24)
[2021-09-26 07:24] LABS: BUN Creatinine Ratio 38.4 (10-20); Creatinine Clr Calc Pharmacy 45.9 ml/min; Est GFR (African American) 63.3 ml/min; Est GFR (Non-African American) 54.6 ml/min; Potassium 3.4 mmol/L (3.5-5.1)
[2021-09-26] MEDS ORDERED: POTASSIUM CHLORIDE CRTAB 20 MEQ TABCR PO STA (07:56)
[2021-09-26] MEDS ORDERED: AZITHROMYCIN 250 MG TAB PO SCH (09:00)
[2021-09-26] MEDS ORDERED: TRIAMTERENE/HCTZ 37.5/25MG CAP PO SCH (09:00)
[2021-09-26] MEDS: METOPROLOL SUCC 50MG EXT REL TAB PO SCH (09:34)
[2021-09-26] MEDS: APIXABAN 5 MG TABLET PO SCH (09:34)
[2021-09-26] MEDS: CETIRIZINE HCL 10 MG TABLET PO SCH (09:34)
[2021-09-26] MEDS: GABAPENTIN 100 MG CAP PO SCH ×2 (09:34→13:44)
[2021-09-26] MEDS: predniSONE 20 MG TAB PO SCH (09:35)
[2021-09-26] MEDS: POTASSIUM CHLORIDE 10 MEQ TABCR PO SCH (09:38)
--- NOTE | 2021-09-26 10:42 | Heart Failure Consultation ---
Date of Consultation September 26, 2021 Assessment & Plan (1) Acute bronchitis: (2) Hypertension: (3) Atrial fibrillation: (4) Hypervolemia: Hypervolemia: Patient appeared to be volume up on admission. She admits to high fluid/moderate sodium diet. She has responded well to diuretics but her presenting symptoms likely more consistent with bronchitis at this time. She has resumed her home dose of triamterene/HCTZ. Continue this on discharge with close symptom monitoring at home. Recommend daily standing weights after discharge. Notify HF program of 2+ lb weight gain overnight or 5+ lb in 1 week. Low sodium diet- stopping added salt would likely help significantly. Stricts I&Os while inpatient. Close follow up. Bronchitis: CT scan consistent with such. Currently on antibiotics, nebs, steroids. Management as per primary service. Atrial fibrillation: Follows with Dr. Redd. Asymptomatic . Rate well controlled. Continue anticoagulation. Hypertension: Well controlled. Continue current regimen. Disposition: Will enroll patient in heart failure program. Will likely only req uire short term follow up through the transition period. Follow up 10/02/21 at 1030. History of Present Illness Attending Physician: Milan Holm DO History of Present Illness Ms. Castillo is a 76 year old female with history of atrial fibrillation, hypertension, bilateral lower extremity edema. Dr. Redd is her primary educator senior clinical. Recent cardiac studies: 1. 09/24/21 Echo: LV systolic function normal. Left atrium mildly dilated. Right atrium mildly dilated. Mild MR. RVSP normal. Patient presented 09/23/21 with increasing shortness of breath, wheezing, weight gain, and cough. She is s/p COVID19 about 3 weeks ago but has since recovered. She was treated with DuoNebs in route with some relief. O2 saturation high 80s per EMS. BNP only mildly elevated at 113. CXR consisent with pulmonary vascular congestion. She was given IV Lasix in the ED. EF preserved on echo. Patient was referred to the heart failure program by the primary service. She has no prior history of heart failure or chronic pulmonary disease. She does not require O2 at baseline. She was hypervolemic on admission and has been responding to diuretics. She has also had significant improvement with nebulizers and steroids. CT scan yesterday more consistent with bronchitis. Antibiotics initiated. Patient remains on 2 L supplemental O2 this morning. She reports she's feeling well. She's sitting up in the bedside chair. She is breathing comfortably. She denies edema or orthopnea. She was transitioned back to her home diuretic, triamterene/HCTZ 37.5/25 mg daily. She is net negative 3L and weight is trending down. Allergies Allergy/AdvReac Type Severity Reaction Status Date / Time moxifloxacin AdvReac Intermediate Confusion Verified 09/23/21 16:05 irbesartan [From Avapro] AdvReac Unknown Unknown Verified 09/23/21 16:05 coban Allergy Intermediate Rash Uncoded 09/23/21 16:05 Home Medications Medication Instructions Recorded Confirmed Type cholecalciferol (vitamin D3) 25 3,000 unit PO QDL cap 12/04/20 09/23/21 History mcg (1,000 unit) capsule (Vitamin D3) cetirizine 10 mg tablet 10 mg PO DAILY tab 03/20/21 09/23/21 History rosuvastatin 20 mg tablet 20 mg PO HS #90 tab 03/20/21 09/23/21 Rx triamterene 37.5 1 cap PO QAM #90 cap 03/20/21 09/23/21 Rx mg-hydrochlorothiazide 25 mg capsule gabapentin 100 mg capsule 100 mg PO TID #90 cap 05/03/21 09/23/21 Rx apixaban 5 mg tablet (Eliquis) 5 mg PO BID #180 tab 05/21/21 09/23/21 Rx potassium chloride 10 mEq 30 meq PO QAM #90 tab 06/13/21 09/23/21 Rx tablet,extended release(part/cryst) (Klor-Con M) albuterol sulfate 90 mcg/actuation 2 puff INHALATION QID PRN #8.5 g 08/31/21 09/23/21 Rx aerosol inhaler (ProAir HFA) metoprolol succinate 50 mg 50 mg PO QAM 09/23/21 09/23/21 History tablet,extended release 24 hr Patient History Medical History Acute hyperglycemia Aneurysm of external carotid artery Angioedema Atrial fibrillation Erythema migrans (Lyme disease) Facial cellulitis Ganglion cyst of both wrists Hyperlipidemia Hypertension Intertrigo Kidney stones Lumbar spinal stenosis Migraine headache Morbid obesity Symptomatic PVCs Tremor Vitamin D deficiency Surgical History History of arthroscopy RIGHT KNEE History of cataract surgery BILATERAL History of colonoscopy Family History Brother Family hx of colon cancer Colorectal cancer Prostate cancer Mother Family history of diabetes mellitus Sister Breast cancer Father Coronary heart disease Denies family history of Ovarian cancer Myocardial infarction Social History Smoking Status: Never smoker Second Hand Exposure: No; Hx Alcohol Use: No Hx Substance Use: No Preferred Language: Trinidadian Communication Ability: Effective Visual Impairment: No Limitations Hearing Ability: Normal 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 Beliefs That Will Affect Care: None marital status: single Current Living Situation: Family Current Living Situation Comment: daughter lives with her current occupational status: retired current occupation: retired from [employer] Feels Safe at Home: Yes Childhood Exposure to Second-Hand Smoke: Yes Diet Comment: trying to watch what she is eating caffeine: Yes Dental Care, Regularly: No Physical Activity Frequency: Does not Exercise Seatbelt Use: always Sunscreen Use: No Assistive Devices: Oxygen - Continuous Physical Exam Physical Exam: Constitutional: Alert, oriented, in no acute distress HEENT: Head is atraumatic and normocephalic. EOMs intact. Sclera anicteric. Face is symmetric. No perioral cyanosis. Mucous membranes moist. Neck: Supple, no JVD Pulmonary: Normal respiratory effort, course breath sounds throughout. Cardiac: Irregularly irregular rate and rhythm. Normal S1 and S2, no gallops, no rubs, no murmurs Extremities: 2+ radial pulses bilaterally. 2+ posterior tibialis pulses bilaterally. No pitting edema. No cyanosis or clubbing. Abdomen: Normal bowel sounds, soft, non-tender, no abdominal mass palpated Skin: Normal skin color, turgor, and pigmentation, no rash, no skin lesions Neurological: Patient is awake, alert, and oriented. Pleasant and cooperative. Answers questions appropriately. Speech is clear. Normal movement in all 4 extremities. Gait pattern is unremarkable. Results & Data ([facility]) Vital Signs (Past 12 Hours) Vital Signs Temp Pulse Pulse Resp BP Pulse Ox 09/26/21 07:39 97.9 F 67 18 135/76 96 09/26/21 07:06 19 81 L 09/26/21 03:22 98.1 F 70 18 143/83 H 93 09/26/21 00:59 74 09/25/21 22:58 98.2 F 72 20 126/71 96 Coding Level of Care Code 62514 Initial Inpt Care Lvl 3 Diagnoses Acute bronchitis J20.9 Hypertension I10 Hypertension type: essential hypertension Atrial fibrillation I48.0 Atrial fibrillation type: paroxysmal Hypervolemia E87.70 (1) Atrial fibrillation Atrial fibrillation type: paroxysmal Qualified Code(s): I48.0 - Paroxysmal atrial fibrillation (2) Hypertension Hypertension type: essential hypertension Qualified Code(s): I10 - Essential (primary) hypertension
[2021-09-26] MEDS: CHOLECALCIFEROL 1,000 UNITS 25 MCG TAB PO SCH (13:02)
--- NOTE | 2021-09-26 14:46 | Discharge Summary ---
Date of Service September 26, 2021 Admission HPI Per Admitting Provider Patient is a 76-year-old female with a past medical history of hypertension, chronic A. fib anticoagulated and rate controlled, hyperlipidemia, and angioedema who presents to the ED today with shortness of breath. Patient states over the past several days she has gradually become short of breath with activity and sometimes at rest. This became intolerable for patient today, which prompted her to call EMS for further evaluation in our ED. EMS reporting O2 sats in high 80s during transportation, patient was given a DuoNeb treatment during transportation and reports some alleviation. Patient on note also notes a 3 to 4 pound weight gain over the past week. States she has been instructed to follow a low-sodium diet and cut back on water intake, however she has not. Denies fever/chills, myalgias, chest pain, palpitations, presyncope/syncope, unilateral leg swelling, calf pain, abdominal pain, nausea, vomiting, diarrhea, constipation. No history of lung disease, VTE. Patient did have COVID 3 weeks ago, she states she mainly felt fatigued and developed a moderate, nonproductive cough. Did not require hospitalization, full resolution of symptoms after 1 week. Vaccinated and boosted. ED evaluation included CBC was unremarkable, CMP with potassium 3.4, glucose 123, otherwise within normal limits. BNP 113. Flu and Covid test negative. CXR revealed cardiomegaly with pulmonary vascular congestion. Patient received another DuoNeb treatment as well as Solu-Medrol 125 mg IV in the ED to which patient had a favorable response. Lasix 20 mg IV ordered. Hospitalist service was consulted for further evaluation and admission. Principal Diagnosis 1. Mild acute on chronic biventricular chf exacerbation 2. Acute bronchitis 3. Hypokalemia--resolved Discharge Exam GENERAL: 76 yo well-developed, well-nourished elderly WF. NAD. LUNGS: Good air exchange, nonlabored. Scattered mild expiratory wheezes thro ughout. CARDIOVASCULAR: Irregularly irregular ABDOMEN: Soft, non-tender and non-distended. BS normal x 4 quad. EXTREMITIES: Trace edema b/l LE. Non-tender. Peripheral pulses +2/4. NEUROLOGIC: A&O x3. PSYCHIATRIC: Cooperative. Appropriate mood and affect. SKIN: Warm, dry, intact. No rashes or lesions. Discharge Data Allergies Allergy/AdvReac Type Severity Reaction Status Date / Time moxifloxacin AdvReac Intermediate Confusion Verified 09/23/21 16:05 irbesartan [From Avapro] AdvReac Unknown Unknown Verified 09/23/21 16:05 coban Allergy Intermediate Rash Uncoded 09/23/21 16:05 Consultations 09/23/21 16:57 ED Decision to Admit Stat 09/23/21 20:32 [facility] CHF Program Referral Routine Ordered Studies Chest X-Ray 09/23/21 15:39 XR chest 1V portable HISTORY: 76 years-old Female Dyspnea acute shortness of breath COMPARISON: Chest CT 10/07/2019 TECHNIQUE: Portable AP view of the chest FINDINGS: The cardiac silhouette is enlarged. Pulmonary vascular congestion with mild chronic interstitial coarsening. No pneumothorax or large pleural effusion. Mild blunting of the costophrenic angles. Degenerative changes of the shoulders and spine. IMPRESSION: Cardiomegaly with pulmonary vascular congestion. ACT 112: Negative or not required by law. The above report was generated using voice recognition software. It may contain grammatical, syntax or spelling errors. Electronically signed by: Yoel Vazquez M.D. 09/23/2021 3:[address] 09/25/21 09:03 CT chest diagnostic wo con CT DOSE: 769.86 mGy.cm CLINICAL HISTORY: 76 years-old Female with hypoxia, cough, r/o pna. Acute cough with hypoxia TECHNIQUE: Multiaxial CT images of the chest were performed without contrast. A dose lowering technique was utilized adhering to the principles of ALARA. COMPARISON: Chest radiograph 09/23/2021, chest CT 10/07/2019 FINDINGS: Unremarkable thyroid. No pathologically enlarged lymph nodes. The heart is normal in size without pericardial effusion. Minimal coronary artery with [id number] thoracic aortic calcifications. No pneumothorax, pleural effusion, airspace consolidation or overt pulmonary edema. Bronchial wall thickening is noted bilaterally. Mild mosaic attenuation with groundglass densities is similar to prior. There are a few scattered benign-appearing solid pulmonary nodule redemonstrated measuring up to 4 mm which are stable from prior. The central airways are patent. No acute process of the imaged upper abdomen. There is suggestion of mild hepatic steatosis. Unremarkable soft tissues. No acute fracture. IMPRESSION: 1. Bronchial wall thickening suggestive of bronchitis versus reactive airway disease. Mild associate bilateral atelectasis with air trapping. 2. No pleural effusion or airspace consolidation typical for pneumonia. ACT 112: Negative or not required by law. Electronically signed by: Yoel Vazquez M.D. 09/25/2021 10:32 AM Hospital Course (1) Acute bronchitis: CT scan obtained without contrast which indicates findings of bronchitis Obtained sputum culture and Gram stain which at this point appears to be just normal juan Empiric Zithromax and prednisone--complete as prescribed Started on duo nebs scheduled 4 times daily Given Robitussin PRN cough, will transition to Tessalon perles as outpatient Continue Mucinex until completed with antibiotics and steroids (2) Acute heart failure with preserved ejection fraction (HFpEF): Acute exacerbation on chronic HFpEF (now compensated) Followed by Dr. Redd, has had SOB in the past with bilateral lower extremity edema for which he suspected HFpEF and prescribed triamterene-HCTZ 37.5/25 daily, as well as KCl 30 po daily. Patient has been compliant with both. Reports 3-4 lb weight gain this week, noncompliance with low Na diet, drinks lots of water prior to admission. Updated echo--normal LV systolic function, both atria mildly dilated, mild mitral regurg, normal RVSP (not significantly changed from last echo from october 2019) Responded favorably to diuersis -- now appears euvolemic, transitioned back to Triamterene/HCTZ today 09/26 Continue low-sodium diet with fluid restriction of 1.8 L over 2 hours. Weaned off O2, two step performed and passed, does not require supplemental O2 (3) Hypokalemia: Replaced/resolved (4) Atrial fibrillation: Chronic; followed by Dr. Redd. Rate controlled with b-belem, on Eliquis. Continued on metoprolol succinate 50 mg po daily. Lopressor 5 mg IV Q6h for HR > 120 ordered as needed but has not required. Continue Eliquis 5mg BID. (5) Hypercholesterolemia: Continue rosuvastatin 20 mg daily. (6) Angioedema: Not present on my exam, patient without complaints of it at this time. Followed by Dr. Friend who recommends cetirizine recommended daily and prednisone 20 mg at first sign of angioedema. Will continue daily cetirizine. (7) Bilateral leg pain: Intermittent, patient not complaining of this today. Dr. Nogueira started patient on gabapentin 100 mg 3 times daily for this. (8) History of COVID-19: Onset 3 weeks ago with resolution after one week, not requiring hospitalization. COVID test in ED today is negative. At this time she is medically and hemodynamically stable for discharge. Complete course of Zithromax and Prednisone as directed. Tessalon perles as needed for cough. Recommend Mucinex which can be taken OTC. Outpatient PFTs in 4-6 weeks which could be arranged by her PCP. Follow up with PCP within 1 week. Follow up with Xenia Ordaz PA-C as scheduled in heart failure clinic. Total Time Total Time Spent Total Time Spent (In Minutes): >30 minutes Discharge Plan Discharge Items Patient Disposition: Home - Home Health Services Reason For Visit: SOB Discharge Diagnosis: Mild volume overload Bronchitis Activity: As commented below Activity Comment: As tolerated Non-emergency contact: Primary Care Provider and Specialist Call non-emergency contact if: you have any medication questions and your symptoms worsen Follow-up/Referrals: Domenic Nogueira MD [Primary Care Provider] - 10/03/21 2:00 pm Xenia Ordaz PA-C [Physician Collection Administrator] - 10/02/21 10:30 am (Congestive Heart Failure Program Appointment Information Early follow up is essential to managing your heart failure. An appointment has been scheduled for you with the [facility] Heart Failure Program within 7 days of discharge. Anticipate this visit to be 30-60 minutes long. Please expect a sign board erector phone call from one of our nurses approximately 48 hours from discharge. They will also be placing an order for lab work to be completed 1-2 days prior to your heart failure follow up appointment. Please be sure to have this done so we can go over the results when you come in. Office Location The cardiology office building is located in front of the hospital at [address] Bring the following with you to your follow-up doctor appointments: Please bring your daily weight log any discharge paperwork all of your medication bottles with you to this visit. ) Diet: Heart Healthy and Low Sodium (2gm) Fluids: 1800ml (7 cups) Addtl Attending Provider Instructions: You were hospitalized with suspected acute exacerbation of heart failure. This happens when blood backs up into the veins of the lungs and fluid leaks out into the lung tissue. For this issue, you were treated with Lasix. We were able get you to pee off the excess fluid and then we put you back on your Triameterene/Hydrochlorothiazide that Dr. Redd prescribed. At this point, you can continue this medication as prescribed. You also got a chance to see Xenia Ordaz PA-C during your stay who specializes in heart failure. She will follow up with you in the heart failure clinic as scheduled. Keep your total fluid intake under 1.8L per day and avoid excessive salt intake. Be sure to read food labels to avoid prepackaged foods that are high in sodium. You were also found to have acute bronchitis on your CT scan of your chest. For that reason, you were started on medication for this including Zithromax (which is an antibiotic), steroids (Prednisone), and nebulizer (breathing) treatments. At this point we transition you to complete a course of Zithromax and prednisone at home. Although this may be viral in nature, the Zithromax will help with reducing lung inflammation as well as the prednisone. Would also recommend that you utilize tvax-jqy-xqowoih Mucinex until you complete your course of antibiotics. You can continue using your Albuterol inhaler as needed for shortness of breath/wheezing. I would recommend you undergo pulmonary function testing within 4-6 weeks as you may have underlying lung disease related to years of passive smoke exposure but this would be at the discretion of your family doctor who would arrange this. We will also send you home with Tessalon perles which you can take up to three times per day as needed for cough. I would recommend that you take steroids in the morning with food. They can taste bitter, can increase hunger, and can affect your sleep if you take them too late in the day. Complete the taper as directed. Complete the Zithromax as prescribed, next dose is due on 09/27/21. We recommend you follow up with your family doctor within 1 week of discharge. Follow up with Xenia Ordaz PA-C as scheduled on October 02. Pending Studies at Discharge: No Stand-Alone Forms: [facility] [employer], Smoking Cessation Medications and DC Order Prescriptions: New azithromycin 250 mg Tablet 250 mg PO QAM Qty: 3 RF: 0 benzonatate 100 mg capsule 100 mg PO TID PRN (Reason: cough) Qty: 20 RF: 0 prednisone 10 mg tablet 10 mg PO DAILY Qty: 20 RF: 0 Continued cholecalciferol (vitamin D3) [Vitamin D3] 25 mcg (1,000 unit) capsule 3,000 unit PO QDL RF: 0 Eliquis 5 mg tablet 5 mg PO BID Qty: 180 RF: 3 albuterol sulfate [ProAir HFA] 90 mcg/actuation HFA aerosol inhaler 2 puff inhalation QID PRN (Reason: shortness of breath) Qty: 8.5 RF: 2 rosuvastatin 20 mg tablet 20 mg PO HS Qty: 90 RF: 3 triamterene-hydrochlorothiazid 37.5-25 mg capsule 1 cap PO QAM Qty: 90 RF: 3 cetirizine 10 mg tablet 10 mg PO DAILY RF: 0 metoprolol succinate 50 mg tablet extended release 24 hr 50 mg PO QAM RF: 0 No Action gabapentin 100 mg capsule 100 mg PO TID Qty: 90 RF: 5 potassium chloride [Klor-Con M10] 10 mEq tablet,ER particles/crystals 30 meq PO QAM Qty: 90 RF: 3 Discharge Orders: Discharge Order (Routine); Ordered 09/26/21 Ordered By: Luz Bashir Admission Data Admit Date/Time: 09/23/21 17:45 Attending Provider: Milan Holm Admit Provider: Janet Ryan Primary Care Provider: Domenic Nogueira Other Providers: Janet Ryan ; Xenia Ordaz Other Interventions: Discharge Summary Assessment (RN) Last Done: 09/26/21 14:54 Supervising Physician Co-Signing Physician Notes I personally examined the patient and verified all galeana points of history and exam, discussed case, and agree with decision making with Lavonne Bashir PAC Feeling better wants to go home. Vitals noted. Breathing unlabored. Bronchitis/CHF exacerbationstable for home as above. Coding Level of Care Code D/C DAY MANAGEMENT >30 MINS Diagnoses Acute bronchitis J20.9 Acute heart failure with preserved ejection fraction (HFpEF) I50.31 Hypokalemia E87.6 Atrial fibrillation I48.0 Atrial fibrillation type: paroxysmal Hypercholesterolemia E78.00 Angioedema T78.3XXD Encounter type: subsequent encounter Bilateral leg pain M79.604; M79.605 History of COVID-19 Z86.16
== END 2021-09-26 17:00 | disposition home health service (06) | DRG 291 ==
LOC: ED 15:26 → 2N 17:45 → SUATTDRO 17:45 → 2N 19:48

== ENCOUNTER 2025-01-23 14:05 | Observation (INO) ==
--- NOTE | 2025-01-23 14:21 | Emergency Department Note ---
History of Present Illness General Chief complaint: Flu Like Symptoms Stated complaint: COUGH, CONGESTION, FATIGUE, HEADACHE Time Seen by Provider: 01/23/25 14:13 History of Present Illness This is an 79-year-old female that presents to the emergency department via private vehicle with complaints of "cough, congestion, fatigue, headache". The patient states that this past Friday she began with a cough. There was also some mucus production with the cough that was yellow in nature. She also notes some intermittent small amounts of bright red blood with the cough. She notes symptoms are worsening. Decreased appetite noted as well. She feels overall tired. She also notes "awful" taste in her mouth. She also notes her balance is "not good. The patient does note associated headache. No reported trauma. No fevers. No chest pain or shortness of breath. No nausea or vomiting. Home Medications Medication Instructions Recorded Confirmed Type cholecalciferol (vitamin D3) 25 3,000 unit PO DAILY 12/04/20 01/23/25 History mcg (1,000 unit) capsule (Vitamin D3) cetirizine 10 mg tablet 10 mg PO QAM 03/20/21 01/23/25 History diphenhydramine HCl 25 mg capsule 25 mg PO TID PRN Rash 03/19/23 01/23/25 History (Benadryl) potassium chloride 10 mEq 30 meq (3 x 10 mEq) PO QAM #270 02/23/24 01/23/25 Rx tablet,extended tabs release(part/cryst) (Klor-Con M) apixaban 5 mg tablet (Eliquis) 5 mg PO BID #180 tabs 05/28/24 01/23/25 Rx metoprolol succinate 50 mg 50 mg PO QAM #90 tabs 09/27/24 01/23/25 Rx tablet,extended release 24 hr rosuvastatin 20 mg tablet 20 mg PO HS #90 tabs 09/27/24 01/23/25 Rx furosemide 20 mg tablet (Lasix) 20 mg PO QAM #90 tabs 11/15/24 01/23/25 Rx gabapentin 100 mg capsule 100 mg PO TID #90 caps 11/16/24 01/23/25 Rx prednisone 10 mg tablet 10 mg PO .COMPLEX PRN angioedema 01/12/25 01/23/25 Rx #5 tabs albuterol sulfate 90 mcg/actuation 2 puff inhalation QID PRN 01/23/25 01/23/25 History aerosol inhaler Shortness Of Breath Or Wheezing cyanocobalamin (vitamin B-12) 500 500 mcg PO DAILY 01/23/25 01/23/25 History mcg tablet (Vitamin B-12) metformin 500 mg tablet,extended 500 mg PO BID 01/23/25 01/23/25 History release 24 hr Allergies Allergy/AdvReac Type Severity Reaction Status Date / Time moxifloxacin AdvReac Intermediate Confusion Verified 01/23/25 16:08 irbesartan [From Avapro] AdvReac Unknown CAN'T Verified 01/23/25 16:08 REMEMBER coban Allergy Intermediate Rash Uncoded 01/23/25 16:08 Past Med/Surg History Problem List (Updated 01/23/25 @ 22:33 by Shade Shaw PA-C) Weakness (Acute) Community acquired pneumonia (Acute) Osteoarthritis of right knee History of colon polyps Obesity, Class II, BMI 35-39.9 Hyperglobulinemia Aneurysm of external carotid artery Angioedema Cervical stenosis of spine Lumbar spinal stenosis On continuous oral anticoagulation Hypercholesterolemia (Chronic) Hypertension (Chronic) Atrial fibrillation on Eliquis. Follows with Dr. Bella. Tremor (Acute) Prediabetes History of vitamin D deficiency Medical History History of cardioversion [facility] 11/2018 Osteoarthritis Spinal stenosis Cardiac murmur CHF (congestive heart failure) Aneurysm of carotid artery Dr. Bella monitors. Erythema migrans (Lyme disease) hx Migraine headache hx Hypoglossal nerve palsy Kidney stones hx - no surgery needed Hyperlipidemia Hypertension Surgical History History of arthroscopy right knee History of colonoscopy History of cataract surgery bilateral Family History Brother Family hx of colon cancer Prostate cancer Colorectal cancer Mother Family history of diabetes mellitus Sister Breast cancer Father Coronary heart disease Other No family history of adverse response to anesthesia Denies family history of Ovarian cancer Myocardial infarction Social History Smoking Status: Never smoker Second Hand Exposure: Yes (hx as child); Do You Dip or Chew Tobacco: No; Hx Alcohol Use: No Hx Substance Use: No Preferred Language: Slovenian Communication Ability: Effective Visual Impairment: No Limitations Hearing Ability: Normal Oracle Specialist Required: No Beliefs That Will Affect Care: None marital status: single Current Living Situation: Family Current Living Situation Comment: link is her caregiver current occupational status: retired current occupation: retired from [employer] Feels Safe at Home: Yes Childhood Exposure to Second-Hand Smoke: Yes Diet: other Diet Comment: trying to watch what she is eating caffeine: Yes Dental Care, Regularly: No Physical Activity Frequency: 1-2 Times per Week Seatbelt Use: always Sunscreen Use: No Assistive Devices: Cane and Glasses Review of Systems A total of 10 systems reviewed and were otherwise negative Physical Exam Vital Signs Vital Signs - 24 hr 01/23/25 14:09 01/23/25 16:06 01/23/25 16:09 Temperature 36.6 C Temperature Source Temporal Artery Scan Pulse Rate 79 83 77 Respiratory Rate 19 21 Respiratory Effort / Characteristics Non-Labored Spontaneous Respiratory Depth Normal Blood Pressure 141/80 H 130/73 Blood Pressure Mean 100 92 Blood Pressure Position Sitting Pulse Oximetry 95 95 Oxygen Delivery Method Room Air Room Air Sepsis Recent Fever Within 48 Hours No Sepsis New/Unexplained Change in Mental Status No Sepsis Action Taken by Nursing No Action Required 01/23/25 17:09 Temperature Temperature Source Pulse Rate 71 Respiratory Rate 18 Respiratory Effort / Characteristics Respiratory Depth Blood Pressure 159/82 H Blood Pressure Mean 107 Blood Pressure Position Pulse Oximetry 96 Oxygen Delivery Method Room Air Sepsis Recent Fever Within 48 Hours Sepsis New/Unexplained Change in Mental Status Sepsis Action Taken by Nursing VITAL SIGNS - Vital signs and nursing notes were reviewed. Stable and afebrile. GENERAL -79-year-old female appearing her stated age who is in no acute distress. Communicates well with provider and answers questions appropriately. SKIN - Without rashes. No meningeal or petechial rash. HEAD - NC/AT. EYES - PERRL with EOMI bilaterally. Sclera anicteric. EARS - No deformities of external structures noted on gross examination bilaterally. NOSE - Midline and without cyanosis. No epistaxis or purulent drainage noted. MOUTH/OROPHARYNX - Without perioral cyanosis. No blood in the posterior pharynx. NECK - Neck with FROM. No nuchal rigidity. LUNGS -mildly diminished breath sounds, no wheezing. CARDIAC - iRR ABDOMEN - Abdominal contour normal without pulsations or visible masses. BS normoactive all four quadrants. No tenderness, palpable masses, hepatosplenomegaly, or ascites noted. EXTREMITIES - No clubbing or peripheral cyanosis. +5/5 strength noted in UE/LE bilaterally. NEUROLOGIC - Cranial nerves II through XII grossly intact. PSYCH -alert, oriented and pleasant on exam. Course Administered Medications Apixaban (Apixaban 5 Mg Tablet) 5 mg PO BID WES Stop: 02/22/25 20:59 Last Admin: 01/23/25 21:24 Dose: 5 mg Documented By: MAURA Gabapentin (Gabapentin 100 Mg Cap) 100 mg PO TID WES Stop: 02/22/25 20:59 Last Admin: 01/23/25 21:23 Dose: 100 mg Documented By: MAURA Metformin HCl (Metformin Hcl Er 500 Mg Tabcr) 500 mg PO BID WES Stop: 02/22/25 20:59 Last Admin: 01/23/25 21:24 Dose: 500 mg Documented By: MAURA Rosuvastatin Calcium (Rosuvastatin Calcium 20 Mg Tab) 20 mg PO HS WES Stop: 02/22/25 20:59 Last Admin: 01/23/25 21:53 Dose: Not Given Documented By: MAURA Discontinued Medications Acetaminophen (Acetaminophen 500 Mg Tab) 500 mg PO NOW STA Stop: 01/23/25 17:36 Last Admin: 01/23/25 17:46 Dose: 500 mg Documented By: SAPNA Azithromycin (Azithromycin 250 Mg Tab) 500 mg PO NOW ONE Stop: 01/23/25 17:24 Last Admin: 01/23/25 17:46 Dose: 500 mg Documented By: SAPNA Ceftriaxone Sodium (Rocephin) 1,000 mg in 50 mls @ 100 mls/hr IV NOW STA Stop: 01/23/25 17:42 Last Infusion: 01/23/25 18:02 Dose: Infused Documented By: Admin: 01/23/25 17:21 Dose: 100 mls/hr Documented By: Potassium Chloride (Potassium Chloride Crtab 20 Meq Tabcr) 20 meq PO NOW STA Stop: 01/23/25 20:30 Last Admin: 01/23/25 21:28 Dose: 20 meq Documented By: MAURA Medical Decision Making Laboratory Data 01/23/25 15:13 01/23/25 15:13 Lab Results 01/23/25 01/23/25 01/23/25 Range/Units 14:35 15:13 17:27 WBC 5.63 (4.8-10.8) K/ul RBC 3.87 L (4.20-5.40) M/uL Hgb 11.0 L (12.0-16.0) g/dl Hct 34.1 L (37.0-47.0) % MCV 88.1 (80.0-100.0) fL MCH 28.4 (25.0-34.0) pg MCHC 32.3 (32.0-36.0) g/dL RDW Std Deviation 48.1 H (36.4-46.3) fL RDW Coeff of Juanjo 15.0 H (11.5-14.5) % Plt Count 233 (130-400) K/uL MPV 10.4 (9.4-12.4) fL Immature Gran % (Auto) 0.2 % Neut % (Auto) 66.3 % Lymph % (Auto) 18.3 % [place]ett % (Auto) 12.6 % Eos % (Auto) 2.1 % Baso % (Auto) 0.5 % Neut # (Auto) 3.73 (1.40-6.50) K/uL Lymph # (Auto) 1.03 L (1.20-3.40) K/uL [place] # (Auto) 0.71 H (0.11-0.59) K/uL Eos # (Auto) 0.12 (0.00-0.50) K/uL Baso # (Auto) 0.03 (0.00-0.20) K/uL Immature Gran # (Auto) 0.01 (0.01-0.20) K/uL PT 11.0 (9.0-12.0) Seconds INR 1.0 (0.9-1.1) APTT 31 (21-31) Seconds PTT Ratio 1.2 Sodium 139 (136-145) mmol/L Potassium 3.4 L (3.5-5.1) mmol/L Chloride 102 (98-107) mmol/L Carbon Dioxide 30 (21-32) mmol/L Anion Gap 7 (3-11) BUN 13 (6-23) mg/dl Creatinine 0.89 (0.6-1.2) mg/dl Est Cr Clr Drug Dosing 43.7 ml/min eGFR 65.09 BUN/Creatinine Ratio 14.6 (10-20) Glucose 93 (70-99(Fasting)) mg/dl Calcium 9.3 (8.6-10.3) mg/dl Total Bilirubin 1.2 H (0.2-1.0) mg/dl AST 14 (13-39) U/L ALT 11 (7-52) U/L Alkaline Phosphatase 53 (34-104) U/L Total Protein 6.4 (6.0-8.3) gm/dl Albumin 3.3 L (3.4-5.0) gm/dl Globulin 3.1 (2.5-4.0) gm/dl Albumin/Globulin Ratio 1.1 (0.9-2) Urine Color Yellow Urine Appearance Clear (Clear) Urine pH 7.0 (4.5-7.5) Ur Specific [place] 1.008 (1.000-1.030) Urine Protein Negative (Negative) Urine Glucose (UA) Negative (Negative) Urine Ketones Negative (Negative) Urine Blood Negative (Negative) Urine Nitrite Negative (Negative) Urine Bilirubin Negative (Negative) Urine Urobilinogen Negative (Negative) Ur Leukocyte Esterase Negative (Negative) Urine Comment Adenovirus (PCR) Not Detected (NotDetected) B. pertussis DNA (PCR) Not Detected (NotDetected) B.parapertussis DNA PCR Not Detected (NotDetected) C. pneumoniae DNA (PCR) Not Detected (NotDetected) Coronavirus OC43 (PCR) Not Detected (NotDetected) Coronavirus HKU1 (PCR) Not Detected (NotDetected) Coronavirus 229E (PCR) Not Detected (NotDetected) SARS-CoV-2 (PCR) Not Detected (NotDetected) Coronavirus NL63 (PCR) Not Detected (NotDetected) Human Metapneumovir PCR Not Detected (NotDetected) Influenza Type A (PCR) Not Detected (NotDetected) Influenza Type B (PCR) Not Detected (NotDetected) M. pneumoniae (PCR) Not Detected (NotDetected) Parainfluenza 1 (PCR) Not Detected (NotDetected) Parainfluenza 2 (PCR) Not Detected (NotDetected) Parainfluenza 3 (PCR) Not Detected (NotDetected) Parainfluenza 4 (PCR) Not Detected (NotDetected) RSV (PCR) Not Detected (NotDetected) Entero/Rhino (PCR) Not Detected (NotDetected) Imaging Data Radiologist's Impression: Chest X-Ray 01/23/25 00:00 EXAM: Radiograph of the Chest 1 View INDICATION: Flulike symptoms TECHNIQUE: Frontal view of the chest. COMPARISON: 05/31/2024 FINDINGS: Lungs and pleural spaces: Mildly prominent groundglass density in the right base and perihilar. No pleural effusion or pneumothorax. Heart: Shape and configuration within normal limits allowing for technique. Mediastinum: Normal contour. Bones/joints: No fracture, erosion or dislocation. Soft tissues: No abnormality noted. No radiopaque foreign body noted. Upper abdomen: No abnormality noted. IMPRESSION: Mild right basilar and perihilar groundglass infiltrate most concerning for pneumonia including viral etiologies. Electronically signed by Evelina Hester 01-23-2025 4:02 PM MDM Narrative Patient was seen and evaluated as above in room C07. Review was performed of triage nursing notes and vital signs. I did review pertinent previous visits and patient history. After obtaining a thorough history and physical examination the above work up was performed. Patient presents for evaluation of cough, feeling overall weak, fatigue, decreased appetite with mild headache. No reported head trauma or injury. Patient does note history of pneumonia. There is no leukocytosis. Minor anemia noted with hemoglobin at 11.0. There is mild hypokalemia at 3.4. No emergent kidney or liver failure. Mild T. bili elevation at 1.2, slightly elevated compared to previous. Urinalysis without sign of infection. Nasal MRSA screen negative. BioFire panel negative. Chest x-ray per my interpretation concerning for pneumonia. IV antibiotics ordered. I discussed options with the patient. We do agree with inpatient management. Case discussed with the hospitalist service. Please refer to further documentation regarding her stay. In regard to the productive cough, I do suspect this is secondary to pneumonia. Patient does note some small amounts of blood intermittently with the cough but there is no blood seen on examination. I do not suspect PE. Presentation most consistent with that of infectious etiology. GCS: 15 In the evaluation and treatment of this patient the following differential diagnoses were entertained: Bronchitis, pneumonia, pneumomediastinum, aspiration, viral URI, among others. Impression & Plan Community acquired pneumonia, Weakness Discharge Plan Visit Data Chief Complaint: Flu Like Symptoms Stated Complaint: COUGH, CONGESTION, FATIGUE, HEADACHE ED Provider: Aurelia Lira ED Midlevel Provider: Shade Shaw Discharge Problem: Community acquired pneumonia, Weakness Patient Disposition: Admitted As Inpatient Condition: Fair Discharge Instructions Interventions: ED Discharge Assessment Last Done: 01/23/25 20:17
--- NOTE | 2025-01-23 14:27 | Emergency Department Note ---
ED Visit Note I was consulted by the Advanced Practice Provider, Shade Shaw PA-C. I performed a substantive portion of the visit. This includes aspects of: History: Patient is a 79 year old female presenting with cough. Symptoms started several days ago. Cough productive of yellow sputum with occassional blood. No chest pain. On eliquis MDM: Workup consistent with pneumonia. Will admit to hospitalist service. .
[2025-01-23 15:32] LABS: Basophils # (auto) 0.03 K/uL (0.00-0.20); Basophils % (auto) 0.5 %; Eosinophils # (auto) 0.12 K/uL (0.00-0.50); Eosinophils % (auto) 2.1 %; Hematocrit (blood only) 34.1 % (37.0-47.0); Immature Granulocytes # (auto) 0.01 K/uL (0.01-0.20); Immature Granulocytes % (auto) 0.2 %; Lymphocytes # (auto) 1.03 K/uL (1.20-3.40); Lymphocytes % (auto) 18.3 %; Mean Corpuscular Hemoglobin 28.4 pg (25.0-34.0); Mean Corpuscular Hgb Conc 32.3 g/dL (32.0-36.0); Mean Corpuscular Volume 88.1 fL (80.0-100.0); Mean Platelet Volume 10.4 fL (9.4-12.4); Monocytes # (auto) 0.71 K/uL (0.11-0.59); Monocytes % (auto) 12.6 %; Neutrophils # (auto) 3.73 K/uL (1.40-6.50); Neutrophils % (auto) 66.3 %; Platelet Count 233 K/uL (130-400); RDW Standard Deviation 48.1 fL (36.4-46.3); Red Blood Count 3.87 M/uL (4.20-5.40); White Blood Count 5.63 K/ul (4.8-10.8)
[2025-01-23 15:49] LABS: Albumin Globulin Ratio 1.1 (0.9-2); Albumin Level 3.3 gm/dl (3.4-5.0); BUN Creatinine Ratio 14.6 (10-20); Bilirubin,Total 1.2 mg/dl (0.2-1.0); Calcium 9.3 mg/dl (8.6-10.3); Creatinine Clr Calc Pharmacy 43.7 ml/min; Globulin 3.1 gm/dl (2.5-4.0); Potassium 3.4 mmol/L (3.5-5.1); Total Protein 6.4 gm/dl (6.0-8.3)
[2025-01-23 15:49] LABS: Adenovirus PCR Not Detected (NotDetected); Bordetella parapertussis PCR Not Detected (NotDetected); Bordetella pertussis PCR Not Detected (NotDetected); Chlamydia pneumoniae PCR Not Detected (NotDetected); Coronavirus 229E PCR Not Detected (NotDetected); Coronavirus CoV-2 (COVID19)PCR Not Detected (NotDetected); Coronavirus HKU1 PCR Not Detected (NotDetected); Coronavirus NL63 PCR Not Detected (NotDetected); Coronavirus OC43PCR Not Detected (NotDetected); Human Metapneumovirus PCR Not Detected (NotDetected); Influenza A PCR Not Detected (NotDetected); Influenza B PCR Not Detected (NotDetected); Mycoplasma pneumoniae PCR Not Detected (NotDetected); Parainfluenza Virus 1 PCR Not Detected (NotDetected); Parainfluenza Virus 2 PCR Not Detected (NotDetected); Parainfluenza Virus 3 PCR Not Detected (NotDetected); Parainfluenza Virus 4 PCR Not Detected (NotDetected); Respiratory Syncytial VirusPCR Not Detected (NotDetected); Rhinovirus/Enterovirus PCR Not Detected (NotDetected)
[2025-01-23 15:59] LABS: Partial Thromboplastin Ratio 1.2; Partial Thromboplastin Time 31 Seconds (21-31)
--- NOTE | 2025-01-23 16:02 | XRay Report ---
EXAM: Radiograph of the Chest 1 View INDICATION: Flulike symptoms TECHNIQUE: Frontal view of the chest. COMPARISON: 05/31/2024 FINDINGS: Lungs and pleural spaces: Mildly prominent groundglass density in the right base and perihilar. No pleural effusion or pneumothorax. Heart: Shape and configuration within normal limits allowing for technique. Mediastinum: Normal contour. Bones/joints: No fracture, erosion or dislocation. Soft tissues: No abnormality noted. No radiopaque foreign body noted. Upper abdomen: No abnormality noted. IMPRESSION: Mild right basilar and perihilar groundglass infiltrate most concerning for pneumonia including viral etiologies. Electronically signed by Evelina Hester 01-23-2025 4:02 PM
[2025-01-23] MEDS: cefTRIAXone SODIUM 1,000 MG/50 ML BAG IV STA (17:21)
[2025-01-23] MEDS: ACETAMINOPHEN 500 MG TAB PO STA (17:46)
[2025-01-23] MEDS: AZITHROMYCIN 250 MG TAB PO ONE (17:46)
--- NOTE | 2025-01-23 17:46 | History & Physical Report ---
Date of Service January 23, 2025 Assessment & Plan (1) Community acquired pneumonia: (2) Weakness: (3) Atrial fibrillation: (4) Hypertension: (5) Prediabetes: Plan #community-acquired pneumoniafortunately not septic or hypoxic, unfortunately extremely weak. Zithromax/Rocephin. Discussed anticipated course of slow improvement. Encouraged ongoing activity and diet. #Weaknessthis is the main reason for initiating her treatment inpatient. PT/OT eval and treat. Hopefully she will not need rehab. Encouraged as much activity and as much p.o. intake as she can tolerate. #Atrial fibrillationrate controlled, anticoagulated on Eliquis #hypertensioncontinue metoprolol and Lasix. Follow. #Prediabetescontinue metformin, A1c earlier this month was 6.1. #DVT prophylaxisanticoagulated as above #dispositionmedical under [facility] Hospitalist service, disposition hopefully home but will depend on her clinical progress as well as how she does with PT/OT. History of Present Illness Chief Complaint: Cough, weakness. Primary Care Provider: Domenic Nogueira MD Patient is a very pleasant 79-year-old female who presents after several days of worsening cough, sputum, and weakness. She notes she first got sick on Friday with respiratory symptoms, cough productive of purulent sputum. She was trying Robitussin and she was continuing to have a ton of mucus and a lot of coughing. She continued to feel weaker and weaker. Fortunately she does not have much dyspnea, just a lot of coughing and sputum. Unfortunately she does feel extremely weak. Poor appetite largely due to bad taste in her mouth, and just not feeling hungry. Came to the ER for further evaluation found to have right lower lobe pneumonia, and given her age and weakness, ER and I agreed that it made the most sense to initiate treatment inpatient. Allergies Allergy/AdvReac Type Severity Reaction Status Date / Time moxifloxacin AdvReac Intermediate Confusion Verified 01/23/25 16:08 irbesartan [From Avapro] AdvReac Unknown CAN'T Verified 01/23/25 16:08 REMEMBER coban Allergy Intermediate Rash Uncoded 01/23/25 16:08 Home Medications Medication Instructions Recorded Confirmed Type cholecalciferol (vitamin D3) 25 3,000 unit PO DAILY 12/04/20 01/23/25 History mcg (1,000 unit) capsule (Vitamin D3) cetirizine 10 mg tablet 10 mg PO QAM 03/20/21 01/23/25 History diphenhydramine HCl 25 mg capsule 25 mg PO TID PRN Rash 03/19/23 01/23/25 History (Benadryl) potassium chloride 10 mEq 30 meq (3 x 10 mEq) PO QAM #270 02/23/24 01/23/25 Rx tablet,extended tabs release(part/cryst) (Klor-Con M) apixaban 5 mg tablet (Eliquis) 5 mg PO BID #180 tabs 05/28/24 01/23/25 Rx metoprolol succinate 50 mg 50 mg PO QAM #90 tabs 09/27/24 01/23/25 Rx tablet,extended release 24 hr rosuvastatin 20 mg tablet 20 mg PO HS #90 tabs 09/27/24 01/23/25 Rx furosemide 20 mg tablet (Lasix) 20 mg PO QAM #90 tabs 11/15/24 01/23/25 Rx gabapentin 100 mg capsule 100 mg PO TID #90 caps 11/16/24 01/23/25 Rx prednisone 10 mg tablet 10 mg PO .COMPLEX PRN angioedema 01/12/25 01/23/25 Rx #5 tabs albuterol sulfate 90 mcg/actuation 2 puff inhalation QID PRN 01/23/25 01/23/25 History aerosol inhaler Shortness Of Breath Or Wheezing cyanocobalamin (vitamin B-12) 500 500 mcg PO DAILY 01/23/25 01/23/25 History mcg tablet (Vitamin B-12) metformin 500 mg tablet,extended 500 mg PO BID 01/23/25 01/23/25 History release 24 hr Past Med/Surg History Problem List (Updated 01/23/25 @ 17:45 by Milan Holm DO) Weakness Community acquired pneumonia Osteoarthritis of right knee History of colon polyps Obesity, Class II, BMI 35-39.9 Hyperglobulinemia Aneurysm of external carotid artery Angioedema Cervical stenosis of spine Lumbar spinal stenosis On continuous oral anticoagulation Hypercholesterolemia (Chronic) Hypertension (Chronic) Atrial fibrillation on Eliquis. Follows with Dr. Bella. Tremor (Acute) Prediabetes History of vitamin D deficiency Medical History History of cardioversion [facility] 11/2018 Osteoarthritis Spinal stenosis Cardiac murmur CHF (congestive heart failure) Aneurysm of carotid artery Dr. Bella monitors. Erythema migrans (Lyme disease) hx Migraine headache hx Hypoglossal nerve palsy Kidney stones hx - no surgery needed Hyperlipidemia Hypertension Surgical History History of arthroscopy right knee History of colonoscopy History of cataract surgery bilateral Family History Brother Family hx of colon cancer Prostate cancer Colorectal cancer Mother Family history of diabetes mellitus Sister Breast cancer Father Coronary heart disease Other No family history of adverse response to anesthesia Denies family history of Ovarian cancer Myocardial infarction Social History Smoking Status: Never smoker Second Hand Exposure: Yes (hx as child); Do You Dip or Chew Tobacco: No; Hx Alcohol Use: No Hx Substance Use: No Preferred Language: Welsh Communication Ability: Effective Visual Impairment: No Limitations Hearing Ability: Normal Bar Assistant Required: No Beliefs That Will Affect Care: None marital status: single Current Living Situation: Family Current Living Situation Comment: dtr is her caregiver current occupational status: retired current occupation: retired from career [employer] Feels Safe at Home: Yes Childhood Exposure to Second-Hand Smoke: Yes Diet: other Diet Comment: trying to watch what she is eating caffeine: Yes Dental Care, Regularly: No Physical Activity Frequency: 1-2 Times per Week Seatbelt Use: always Sunscreen Use: No Assistive Devices: Cane and Glasses Review of Systems Review of Systems: All systems reviewed & are unremarkable except as noted in HPI & below Physical Exam Physical Exam: In general she is awake and alert pleasant but very fatigued. HEENT normocephalic atraumatic mucous membranes moist. Cardio is regular without rubs murmurs or gallops. Lungs show maybe faint rales base left, and notable but faint rales right lower middle lunginterestingly does correlate almost exactly to the infiltrate on chest x-ray. Good air entry otherwise, no rhonchi or wh eezes. Extremities show no sinus clubbing or edema. Skin without rashes pallor or icterus. Neuro shows cranial nerves II through XII are grossly intact gross motor and sensory intact. Mental status shows good recent and remote recall normal mood and affect good judgment and insight. Results & Data Results & Data Vital Signs (Past 12 Hours) Vital Signs Temp Pulse Resp BP Pulse Ox O2 Del Method 01/23/25 17:09 71 18 159/82 H 96 Room Air 01/23/25 16:09 77 21 130/73 95 Room Air 01/23/25 16:06 83 01/23/25 14:09 97.9 F 79 19 141/80 H 95 Room Air Code Status & VTE Plan VTE Prophylaxis Plan VTE Prophylaxis will be ordered: Yes PG Care Time/CCT Total # of Minutes Spent Total Time Spent with Patient: Total time spent is greater than 50% in coordination of care (as documented) at patient's floor/unit and/or counseling patient: Coding Level of Care Code 27596 INT INP/OBS CARE 3/75MIN Diagnoses Community acquired pneumonia J18.9 Weakness R53.1 Paroxysmal atrial fibrillation I48.0 Atrial fibrillation type: paroxysmal Essential hypertension I10 Hypertension type: essential hypertension Prediabetes R73.03 (3) Atrial fibrillation Atrial fibrillation type: paroxysmal Qualified Code(s): I48.0 - Paroxysmal atrial fibrillation (4) Hypertension Hypertension type: essential hypertension Qualified Code(s): I10 - Essential (primary) hypertension
[2025-01-23 17:50] LABS: Appearance Urine Clear (Clear); Bilirubin Urine Negative (Negative); Blood Urine Negative (Negative); Color Urine Yellow; Glucose Urine UA Negative (Negative); Ketones Urine Negative (Negative); Leukocyte Esterase Urine Negative (Negative); Nitrite Urine Negative (Negative); Protein Urine Negative (Negative); Specific Gravity Urine 1.008 (1.000-1.030); Urobilinogen Urine Negative (Negative)
[2025-01-23] MEDS ORDERED: MELATONIN 3 MG TAB PO PRN (20:29)
[2025-01-23] MEDS ORDERED: predniSONE 10 MG TABLET PO PRN (20:29)
[2025-01-23] MEDS ORDERED: ONDANSETRON INJ 2 MG/ML 2 ML VIAL IV PRN (20:29)
[2025-01-23] MEDS ORDERED: ALUMINUM/MAGNESIUM SUSP 30 ML UDC PO PRN (20:29)
[2025-01-23] MEDS ORDERED: POLYETHYLENE (MIRALAX) 17 GM PACK PO PRN (20:29)
[2025-01-23] MEDS ORDERED: MAGNESIUM HYDROXIDE SUSP 30 ML UDC PO PRN (20:29)
[2025-01-23] MEDS ORDERED: ALBUTEROL HFA 8 GM INHALER INH PRN (20:29)
[2025-01-23] MEDS: GABAPENTIN 100 MG CAP PO SCH (21:23)
[2025-01-23] MEDS: metFORMIN HCL ER 500 MG TABCR PO SCH (21:24)
[2025-01-23] MEDS: APIXABAN 5 MG TABLET PO SCH (21:24)
[2025-01-23] MEDS: POTASSIUM CHLORIDE CRTAB 20 MEQ TABCR PO STA (21:28)
[2025-01-23] MEDS: ROSUVASTATIN CALCIUM 20 MG TAB PO SCH (21:53)
[2025-01-24 07:01] VITALS: RESP 16
[2025-01-24 08:01] LABS: Basophils # (auto) 0.03 K/uL (0.00-0.20); Basophils % (auto) 0.5 %; Eosinophils % (auto) 1.7 %; Hematocrit (blood only) 35.9 % (37.0-47.0); Hemoglobin 11.5 g/dl (12.0-16.0); Immature Granulocytes # (auto) 0.01 K/uL (0.01-0.20); Immature Granulocytes % (auto) 0.2 %; Lymphocytes # (auto) 1.08 K/uL (1.20-3.40); Lymphocytes % (auto) 18.7 %; Mean Corpuscular Hemoglobin 28.4 pg (25.0-34.0); Mean Corpuscular Volume 88.6 fL (80.0-100.0); Mean Platelet Volume 10.6 fL (9.4-12.4); Monocytes # (auto) 0.65 K/uL (0.11-0.59); Monocytes % (auto) 11.3 %; Neutrophils % (auto) 67.6 %; Platelet Count 244 K/uL (130-400); RDW Standard Deviation 48.5 fL (36.4-46.3); Red Blood Count 4.05 M/uL (4.20-5.40); White Blood Count 5.77 K/ul (4.8-10.8)
[2025-01-24 08:17] LABS: BUN Creatinine Ratio 15.5 (10-20); Calcium 9.3 mg/dl (8.6-10.3); Creatinine Clr Calc Pharmacy 46.2 ml/min; Potassium 3.9 mmol/L (3.5-5.1)
[2025-01-24] MEDS: diphenhydrAMINE Capsule 25 MG CAP PO PRN (08:56)
[2025-01-24] MEDS: POTASSIUM CHLORIDE 10 MEQ TABCR PO SCH (08:56)
[2025-01-24] MEDS: CETIRIZINE HCL 10 MG TABLET PO SCH (08:57)
[2025-01-24] MEDS: CHOLECALCIFEROL 25 MCG (1000 UNITS) TAB PO SCH (08:57)
[2025-01-24] MEDS: CYANOCOBALAMIN (B-12) 500 MCG TABLET PO SCH (08:57)
[2025-01-24] MEDS: METOPROLOL SUCC 50MG EXT REL TAB PO SCH (08:58)
[2025-01-24] MEDS: FUROSEMIDE 20 MG TAB PO SCH (09:40)
[2025-01-24 16:00] VITALS: O2SAT 93
--- NOTE | 2025-01-24 16:14 | Hospitalist Progress Note ---
Date of Service January 24, 2025 Assessment & Plan (1) Community acquired pneumonia: (2) Weakness: (3) Atrial fibrillation: (4) Hypertension: (5) Prediabetes: Plan This is an 79 year old female with past medical history of OA, A fib, HTN, prediabetes who presented to the ED on 01/23/25 with cough & weakness. #CAP CXR: mild R basilar & perihilar ground glass infiltrate most concerning for pneumonia CBC w/o leukocytosis. BMP stable Respiratory Biofire negative Continue Azithromycin/Rocephin PT/OT consulted - independent, able to return home. #Prediabetes recent A1c 6.1% Continue metformin #A fib - continue Eliquis #HTN - continue Metoprolol/Lasix DVT prophylaxis: Agustin Code: full Admission and Anticipated Discharge Date Admission Date: January 23, 2025 Sung Gale was seen and examined this morning. She reports she felt 50% better today . reports she still has a cough but denies chest pain/shortness of breath Physical Exam Physical Exam: General: no acute distress; non-toxic appearing; well-nourished; cooperative HEENT: normocephalic, atraumatic; no scleral icterus; PERRLA w/ EOMs intact; vision and hearing grossly intact Neck: trachea midline Skin: warm, dry without signs of tenting; no cyanosis; no rashes, bruising, lesions, or erythema noted CV: RRR; S1/S2 normal; no murmurs/rubs/gallops Lungs: no acute respiratory distress; symmetrical chest wall expansion; clear breath sounds across all lung wolff w/o adventitious sounds; no wheezing MSK: no edema noted in the LEs b/l, nonerythematous Neuro: A&Ox3; normal mood and affect; fluent speech; no focal deficits; sensation grossly intact in the LEs b/l Results & Data Results & Data Vital Signs (Past 12 Hours) Vital Signs Temp Pulse Resp BP Pulse Ox O2 Del Method 01/24/25 07:06 Room Air 01/24/25 07:01 36.7 C 75 16 151/82 H 92 Room Air PG Care Time/CCT Total # of Minutes Spent Total Time Spent with Patient: Total time spent is greater than 50% in coordination of care (as documented) at patient's floor/unit and/or counseling patient: Coding Level of Care Code 85345 SUB INP/OBS CARE MIN Diagnoses Community acquired pneumonia J18.9 Weakness R53.1 Paroxysmal atrial fibrillation I48.0 Atrial fibrillation type: paroxysmal Essential hypertension I10 Hypertension type: essential hypertension Prediabetes R73.03 (3) Atrial fibrillation Atrial fibrillation type: paroxysmal Qualified Code(s): I48.0 - Paroxysmal atrial fibrillation (4) Hypertension Hypertension type: essential hypertension Qualified Code(s): I10 - Essential (primary) hypertension
[2025-01-24] MEDS: AZITHROMYCIN 250 MG in DEXTROSE 5% 250 ML IV SCH (17:17)
[2025-01-24] MEDS: cefTRIAXone SODIUM 1,000 MG/50 ML BAG IV SCH (19:55)
[2025-01-24 21:21] VITALS: TEMP 97.7
[2025-01-25] MEDS: ACETAMINOPHEN 325 MG TAB PO PRN (05:33)
[2025-01-25 06:12] LABS: Hematocrit (blood only) 36.6 % (37.0-47.0); Hemoglobin 12.2 g/dl (12.0-16.0); Mean Corpuscular Hemoglobin 29.1 pg (25.0-34.0); Mean Corpuscular Hgb Conc 33.3 g/dL (32.0-36.0); Mean Corpuscular Volume 87.4 fL (80.0-100.0); Mean Platelet Volume 10.3 fL (9.4-12.4); Platelet Count 282 K/uL (130-400); RDW Coefficient of Variation 14.9 % (11.5-14.5); RDW Standard Deviation 48.3 fL (36.4-46.3); Red Blood Count 4.19 M/uL (4.20-5.40); White Blood Count 6.12 K/ul (4.8-10.8)
[2025-01-25 06:24] LABS: Calcium 9.5 mg/dl (8.6-10.3); Potassium 4.1 mmol/L (3.5-5.1)
[2025-01-25 06:29] LABS: BUN Creatinine Ratio 16.5 (10-20); Creatinine Clr Calc Pharmacy 42.6 ml/min
[2025-01-25 07:54] VITALS: BP 136/84; PULSE 68
--- NOTE | 2025-01-25 12:21 | Discharge Summary ---
Discharge Summary Date of Service January 25, 2025 Principal Dx & Hospital Course #1 = Principal Diagnosis (1) Community acquired pneumonia: Moraxella identified in the sputum. She is on room air. She appears to be doing quite well at this time. Will discharge home on 1 more week of oral Augmentin. (2) Weakness: Present on admission. Now resolved (3) Atrial fibrillation: Chronic. Rate controlled. Continue Eliquis. Telemetry while hospitalized (4) Hypertension: Stable on current medications (5) Prediabetes: Stable on current medications Plan Home today, January 25. Continue Augmentin for 1 more week. Follow-up with primary care provider soon as possible Admission HPI Per Admitting Provider Patient is a very pleasant 79-year-old female who presents after several days of worsening cough, sputum, and weakness. She notes she first got sick on Friday with respiratory symptoms, cough productive of purulent sputum. She was trying Robitussin and she was continuing to have a ton of mucus and a lot of coughing. She continued to feel weaker and weaker. Fortunately she does not have much dyspnea, just a lot of coughing and sputum. Unfortunately she does feel extremely weak. Poor appetite largely due to bad taste in her mouth, and just not feeling hungry. Came to the ER for further evaluation found to have right lower lobe pneumonia, and given her age and weakness, ER and I agreed that it made the most sense to initiate treatment inpatient. Discharge Plan Discharge Items Patient Disposition: Home - Self-Care Reason For Visit: CAP Discharge Diagnosis: Suspected community-acquired pneumonia Condition on Discharge: Good Activity: Resume your previous activity Non-emergency contact: Primary Care Provider Call non-emergency contact if: your symptoms worsen Follow-up/Referrals: Domenic Nogueira MD [Primary Care Provider] - Diet: Carb Consistent or DM2 and Heart Healthy Addtl Attending Provider Instructions: Take amoxicillin/clavulanate twice a day for 1 more week. A prescription has been sent to your pharmacy at [facility] in [place]. All other medications remain the same Pending Studies at Discharge: No Stand-Alone Forms: My [facility] [employer], Smoking Cessation Medications and DC Order Prescriptions: New amoxicillin-pot clavulanate 875-125 mg tablet 1 tab PO BID Qty: 14 0RF Continued cholecalciferol (vitamin D3) [Vitamin D3] 25 mcg (1,000 unit) capsule 3,000 unit PO DAILY potassium chloride [Klor-Con M10] 10 mEq tablet,ER particles/crystals 30 meq PO QAM Qty: 270 3RF Rx Instructions: 90 day supply requested by pharmacy Eliquis 5 mg tablet 5 mg PO BID Qty: 180 3RF furosemide [Lasix] 20 mg tablet 20 mg PO QAM Qty: 90 3RF gabapentin 100 mg capsule 100 mg PO TID Qty: 90 5RF metoprolol succinate 50 mg tablet extended release 24 hr 50 mg PO QAM Qty: 90 3RF rosuvastatin 20 mg tablet 20 mg PO HS Qty: 90 3RF Rx Instructions: ON HOLD FOR 2 WKS, TO SEE IF LEG PAIN/CRAMPS STOP prednisone 10 mg tablet 10 mg PO .COMPLEX PRN (Reason: angioedema) Qty: 5 5RF Rx Instructions: 10 mg orally 1 tablet by mouth daily for 5 days as needed for angioedema. PRN; cetirizine 10 mg tablet 10 mg PO QAM diphenhydramine HCl [Benadryl] 25 mg Capsule 25 mg PO TID PRN (Reason: Rash) cyanocobalamin (vitamin B-12) [Vitamin B-12] 500 mcg Tablet 500 mcg PO DAILY albuterol sulfate 90 mcg/actuation Hfa Aerosol Inhaler 2 puff INHALATION QID PRN (Reason: Shortness Of Breath Or Wheezing) metformin 500 mg tablet extended release 24 hr 500 mg PO BID Discharge Orders: Discharge Order (Routine); Ordered 01/25/25 Ordered By: Francis Thurston Admission Data Admit Date/Time: 01/23/25 17:40 Attending Provider: Francis Thurston Admit Provider: Milan Holm Primary Care Provider: Domenic Nogueira Other Providers: Milan Holm Hospital Stay Data Consultations 01/23/25 17:20 ED Decision to Admit Stat Pending Results Patient Have Any Pending Studies at Discharge: No Discharge Instructions Given to Patient (Per Discharging Provider) Take amoxicillin/clavulanate twice a day for 1 more week. A prescription has been sent to your pharmacy at [facility] in [place]. All other medications remain the same Total Time Total Time Spent Total Time Spent (In Minutes): 50-minute Coding Level of Care Code 20917 INP/OBS DISCH >30 MIN Diagnoses Community acquired pneumonia J18.9 Weakness R53.1 Paroxysmal atrial fibrillation I48.0 Atrial fibrillation type: paroxysmal Essential hypertension I10 Hypertension type: essential hypertension Prediabetes R73.03
== END 2025-01-25 13:44 | disposition home or self-care (01) ==
LOC: ED 14:05 → EDINP 17:40 → SUATTDRO 17:40 → INTOOBSV 17:40 → 3W 20:17